=== PATIENT | female | born 1960 | race African-American/Black ===

== ENCOUNTER 2019-05-29 20:25 | Inpatient (IN) ==
[2019-05-29] MEDS ORDERED: ZOFRAN IV ONE (20:55)
[2019-05-29] MEDS ORDERED: ZOFRAN IM ONE (21:06)
[2019-05-29] MEDS ORDERED: HUMULIN R SUBQ ONE (21:09)
--- NOTE | 2019-05-29 21:28 | Diag Imaging Result Doc PS360 ---
EXAM: CHEST-1 VIEW HISTORY: chest pain TECHNIQUE: Single view COMPARISON: 03/13/2019 FINDINGS: The lungs are well expanded. The heart is not enlarged. No change in the right jugular catheter. No pneumothorax. The vessels are not distended. There are no infiltrates. No effusion identified. IMPRESSION: Negative exam. Electronically signed by aCtracho Barber 05/29/2019 9:25 PM
[2019-05-29 21:29] LABS: ALLEN TEST YES; BE -4.4 mmoll (-3.0-3.0); BLOOD TYPE ARTERIAL; HCO3-(ACT) 21.4 mmoll (20.0-26.0); METHB 1.1 % (0.0-1.5); MODALITY ROOM AIR; O2(CT) 12.4 mL/dL (15.0-23.0); O2HB 91.5 % (95.0-99.0); PCO2(98.6) 39 mmHg (35-45); PO2(98.6) 59 mmHg (60-100); SAMPLE BLOOD; SAO2 94.5 % (95.0-100.0); THB 9.6 g/dL (11.5-17.4); pH(98.6) 7.34 (7.35-7.45)
--- NOTE | 2019-05-29 21:32 | EKG Report ---
Test Performed on : 05/29/2019 9:00:46 PM Test Reason : chest pain Blood Pressure : / mmHG Vent. Rate : 075 BPM Atrial Rate : 075 BPM P-R Int : 148 ms QRS Dur : 074 ms QT Int : 430 ms P-R-T Axes : 044 -05 039 degrees QTc Int : 480 ms Normal sinus rhythm. Normal ECG When compared with ECG of 13-MAR-2019 18:18, Nonspecific T wave abnormality no longer evident in Lateral leads Unconfirmed Result
[2019-05-29 21:42] LABS: BASO# 0.02 X1000 (0.0-0.2); BASO% 0.2 % (0.0-0.8); EOS# 0.01 X1000 (0.0-0.7); EOS% 0.1 % (0.0-10.0); HEMATOCRIT 30.4 % (37.0-47.0); HEMOGLOBIN 9.8 g/dL (12.0-16.0); LYMPH# 1.89 X1000 (1.2-3.4); LYMPH% 16.5 % (20.5-51.1); MCH 27.5 PG (27-31); MCHC 32.2 g/dL (33-37); MCV 85.4 FL (81-99); MONO# 0.63 X1000 (0.11-0.59); MONO% 5.5 % (1.7-9.3); MPV 10.2 FL (7.4-10.4); NEUT# 8.87 X1000 (1.4-6.5); NEUT% 77.7 % (42.2-75.2); PLT 263 X1000 (130-400); RBC 3.56 XMIL (4.2-5.4); RDW 13.9 % (11.5-14.5); WBC 11.42 X1000 (4.8-10.8)
[2019-05-29 22:22] LABS: AGAP 24; ALB/GLOB RATIO 1.2; ALBUMIN 3.7 g/dL (3.5-5.0); ALKALINE PHOSPHATASE 102 U/L (32-104); BUN 89 mg/dL (8-22); CALCIUM 8.8 mg/dL (8.8-10.2); CHLORIDE 79 mmol/L (98-107); COSMO 322; CREATININE 8.1 mg/dL (0.5-0.9); ESTIMATED GFR 6; GLUCOSE 974 mg/dL (70-104); GOT 11 U/L (10-30); GPT < 5 U/L (10-36); POTASSIUM 5.9 mmol/L (3.5-5.1); SODIUM 123 mmol/L (136-145); TCO2 20 mmol/L (25-35); TOTAL BILIRUBIN 0.27 mg/dL (0.20-1.00); TOTAL PROTEIN 6.8 g/dL (6.3-8.3)
[2019-05-29] MEDS ORDERED: NS 1,000 ML IV ONE (22:28)
[2019-05-29] MEDS ORDERED: NS 500 ML IV ONE (22:30)
[2019-05-29] MEDS ORDERED: DILAUDID IV ONE (22:42)
[2019-05-29 23:00] LABS: MAGNESIUM 2.2 mg/dL (1.5-2.7); PHOSPHORUS 4.6 mg/dL (2.7-4.5)
[2019-05-30] MEDS ORDERED: DILAUDID IM ONE (00:14)
[2019-05-30] MEDS ORDERED: DILAUDID ONE (00:20)
--- NOTE | 2019-05-30 02:14 | PROVIDER DOCUMENTATION ---
This chart was entered by Geni Patterson Scribe, acting as scribe for Titi Pitt MD. HPI-Abdominal Pain/GI Problem - General Stated Complaint: abdominal pain Time Seen by Provider: 05/29/19 20:30 Source: patient, EMS Allergies/Adverse Reactions: Patient Allergies Allergy/AdvReac Type Severity Reaction Status Date / Time Latex, Natural Rubber Allergy ITCHING Verified 05/25/19 08:09 Home Medications: Home Medication List Medication Instructions Recorded Confirmed Last Taken Type Aspirin 81 mg PO DAILY 07/22/16 05/25/19 05/25/19 06:30 History Gabapentin 600 mg PO BID 07/22/16 05/25/19 05/25/19 06:30 History Insulin NPL/Insulin Lispro 12 units SQ BID CC 07/22/16 05/25/19 05/24/19 20:00 History [Humalog Mix 75-25 Pen] Losartan Potassium [Cozaar] 50 mg PO DAILY 07/22/16 05/25/19 05/24/19 History Nebivolol [Bystolic] 5 mg PO DAILY 07/22/16 05/25/19 05/25/19 06:30 History PRAVAstatin [Pravachol] 40 mg PO QHS 07/22/16 05/25/19 05/24/19 History Pantoprazole [Protonix] 40 mg PO DAILY@0700 07/22/16 05/25/19 07/21/16 09:00 History Sitagliptin [Januvia] 50 mg PO DAILY 07/22/16 05/25/19 05/24/19 History Torsemide 20 mg PO DAILY 07/22/16 05/25/19 05/25/19 06:30 History Insulin Glargine [Lantus] 45 unit SUBQ QHS #1 07/25/16 05/25/19 05/24/19 20:00 Rx 45 units Baclofen 5 mg PO DAILY 05/20/19 05/25/19 05/24/19 History Clindamycin [Cleocin] 300 mg PO TID 05/20/19 05/25/19 05/25/19 06:30 History Nifedipine 20 mg PO DAILY 05/20/19 05/25/19 05/25/19 06:30 History Docusate Sodium [Colace] 100 mg PO BID #30 cap 05/25/19 Unknown Rx Hydrocodone/Acetaminophen [Rebuck 1 ea PO Q6H PRN PRN #20 tab 05/25/19 Unknown Rx 7.5-325 Tablet] - History of Present Illness-ABD Nature of Presenting Problems: 59 y/o female presents to ED with generalized abdominal pain radiating into c hest and vomiting. Pt reports she is a MWF dialysis pt and has not dialyzed in 4 days. Pt states she missed dialysis because she was sick. EMS reports her blood pressure and sugar were high en route to ED. Pt is alert and grunting in pain. Abdominal Pain Onset Location: reports: generalized abdomen Pain Radiation: reports: no radiation Quality of Pain: reports: aching Severity in ED: reports: moderate Onset/Duration: reports: unsure Timing: reports: still present Activities at Onset: reports: none Exposure to sick contacts?: No Modifying Factors: worse with: palpation Associated Symptoms: reports: vomiting, other (generalized abdominal pain radiating into chest) Last BM: unsure Dark Stools Present?: reports: none noticed Rectal Bleeding: reports: none Rectal Pain: reports: none Similar Symptoms Previously?: No Recently seen or treated by another doctor?: No Review of Systems - Adult - REVIEW OF SYSTEMS - ADULT Constitutional: denies: chills, fever Eyes: reports: no symptoms reported Ears, Nose, Mouth & Throat: reports: no symptoms reported Cardiovascular: denies: chest pain, palpitations Respiratory: denies: cough, shortness of breath Gastrointestinal: reports: abdominal pain (radiating into chest), nausea, vomiting. denies: diarrhea Genitourinary: reports: no symptoms reported Musculoskeletal: reports: no symptoms reported Integumentary: reports: no symptoms reported Neurological: reports: no symptoms reported Psychiatric: reports: no symptoms reported Endocrine: reports: no symptoms reported Hematologic/Lymphatic: reports: no symptoms reported Allergic/Immunologic: reports: no symptoms reported All Other Systems: Reviewed and Negative Past History - Adult - PAST MEDICAL HISTORY-ADULT Review of Records: reports: Old Records Reviewed, Nursing Assessment Review, Medications Reviewed Major Childhood Illnesses: reports: denies history Cardiovascular: reports: HTN, hyperlipidemia Respiratory: reports: sleep apnea Gastrointestinal: reports: denies history Obstetrical/Gynecological: reports: denies history Genitourinary: reports: dialysis (MWF), ESRD, kidney disease Musculoskeletal: reports: denies history Neurological: reports: CVA Endocrine/Immune: reports: Diabetes Other Conditions: reports: blindness - PRIOR SURGERIES/PROCEDURES Surgical/Procedure History: reports: back/neck, other (fistula) - IMMUNIZATION STATUS Childhood Immunizations: See Nurse Assessment Flu Vaccine: See Nurse Assessment - FAMILY HISTORY Family History: reviewed, not pertinent - SOCIAL HISTORY Smoking: non-smoker Substance Use: none/never Alcohol Use Frequency: never Living Situation: family Physical Exam-General - PHYSICAL EXAM-ADULT Initial Vital Signs Reviewed: Yes - CONSTITUTIONAL General Appearance: alert, mild distress, obese, other (grunting in pain) - EYES Eyes: pink conjunctivae - HEAD, EARS, NOSE, MOUTH & THROAT HENMT: normocephalic/atraumatic, moist mucous membranes, normal ENT inspection - NECK Neck: non-tender, full range of motion - RESPIRATORY Respiratory: chest non-tender, lungs clear, normal breath sounds - CARDIOVASCULAR Cardiovascular: normal peripheral pulses, regular rate, rhythm - GASTROINTESTINAL (ABDOMEN) Abdominal Exam: normal bowel sounds, soft, tenderness (epigastric) - MUSCULOSKELETAL Back Exam: normal inspection, no CVA tenderness, no vertebral tenderness Extremity: normal range of motion, non-tender - SKIN Integumentary: normal color, warm/dry, other (dressed wound to medial aspect of L upper arm) - NEUROLOGIC Neurologic: grossly normal - PSYCHIATRIC Psych/Mental Status: normal mood/affect Progress - PLAN OF CARE/RESULTS Progress/Plan/Lab Results: Orders Category Date Time Status cxr [CHEST-1 VIEW] [RAD] Stat Exams 05/29/19 20:41 Ordered CBC WITH ELECTRONIC DIFF [HEME] Stat Lab 05/29/19 20:31 Uncollected CMP [COMPREHENSIVE METABOLIC PANEL] [CHEM] Stat Lab 05/29/19 20:31 Uncollected TROPONIN T Stat Lab 05/29/19 20:41 Ordered EKG [EKG] Stat Ther 05/29/19 20:41 Ordered Vital Signs - 24 hr 05/29/19 20:39 Temperature 97.7 F Pulse Rate 78 Respiratory Rate 20 Blood Pressure 220/140 O2 Sat by Pulse Oximetry 97 Orders Category Date Time Status cxr [CHEST-1 VIEW] [RAD] Stat Exams 05/29/19 20:41 Completed ABG [RESP] Routine Lab 05/29/19 21:07 Completed CBC WITH ELECTRONIC DIFF [HEME] Stat Lab 05/29/19 21:27 Completed CMP [COMPREHENSIVE METABOLIC PANEL] [CHEM] Stat Lab 05/29/19 21:27 Completed TROPONIN T Stat Lab 05/29/19 21:27 Completed Insulin Human Regular [Humulin R] Med 05/29/19 21:09 Discontinued 10 unit SUBQ NOW ONE Ondansetron [Zofran] Med 05/29/19 21:06 Discontinued 4 mg IM NOW ONE EKG [EKG] Stat Ther 05/29/19 20:41 Draft Laboratory Tests 05/29/19 05/29/19 05/29/19 21:07 21:10 21:27 WBC RBC Hgb Hct MCV MCH MCHC RDW Std Deviation Plt Count MPV Immature Gran % (Auto) Neut % (Auto) Lymph % (Auto) Thurston % (Auto) Eos % (Auto) Baso % (Auto) Immature Gran # (Auto) Neut # (Auto) Lymph # (Auto) Thurston # (Auto) Eos # (Auto) Baso # (Auto) Specimen Type ARTERIAL Sample Site R RADIAL pH 7.34 L pCO2 39 pO2 59 L HCO3 21.4 Base Excess -4.4 L Oxyhemoglobin 91.5 L ABG O2 Sat (Calculated) 12.4 L ABG O2 Saturation 94.5 L ABG Carboxyhemoglobin 2.10 ABG Methemoglobin 1.1 Mauricio Test YES A-a O2 Difference 42.0 Total Hemoglobin 9.6 L Lactate 1.40 Blood Gas Modality ROOM AIR FiO2 % 21.0 Sodium Potassium Chloride Carbon Dioxide Anion Gap BUN Creatinine Estimated GFR/1.73 m2 BUN/Creatinine Ratio Glucose POC Glucose 500 H D Calculated Osmolality Calcium Total Bilirubin AST ALT Alkaline Phosphatase Troponin T 0.066 Total Protein Albumin Globulin Albumin/Globulin Ratio 05/29/19 05/29/19 21:27 21:27 WBC 11.42 H RBC 3.56 L Hgb 9.8 L Hct 30.4 L MCV 85.4 MCH 27.5 MCHC 32.2 L RDW Std Deviation 13.9 Plt Count 263 MPV 10.2 Immature Gran % (Auto) 0.0 Neut % (Auto) 77.7 H Lymph % (Auto) 16.5 L Thurston % (Auto) 5.5 Eos % (Auto) 0.1 Baso % (Auto) 0.2 Immature Gran # (Auto) 0.00 Neut # (Auto) 8.87 H Lymph # (Auto) 1.89 Thurston # (Auto) 0.63 H Eos # (Auto) 0.01 Baso # (Auto) 0.02 Specimen Type Sample Site pH pCO2 pO2 HCO3 Base Excess Oxyhemoglobin ABG O2 Sat (Calculated) ABG O2 Saturation ABG Carboxyhemoglobin ABG Methemoglobin Mauricio Test A-a O2 Difference Total Hemoglobin Lactate Blood Gas Modality FiO2 % Sodium 123 L Potassium 5.9 H Chloride 79 L Carbon Dioxide 20 L Anion Gap 24 BUN 89 H Creatinine 8.1 H Estimated GFR/1.73 m2 6 BUN/Creatinine Ratio 11 Glucose 974 H* POC Glucose Calculated Osmolality 322 Calcium 8.8 Total Bilirubin 0.27 AST 11 ALT < 5 L Alkaline Phosphatase 102 Troponin T Total Protein 6.8 Albumin 3.7 Globulin 3.1 Albumin/Globulin Ratio 1.2 Result Diagrams: 05/29/19 21:27 05/29/19 21:27 - EKG 1 Time of EKG reading by physician:: 21:00 EKG Read and Signed by:: Titi Pitt EKG Interpretation (*Must complete 3 of following elements*): Normal Rate: 75 Rhythm: NSR [place]: normal QRS: normal MD Interval: normal ST Wave: normal - XRAY 1 XRAY Study: Chest Impression: See EMR Report ([facility] - [address] [place] [address] [place], [place] [id number] [facility] - [address] [place] [address] Department of Imaging Patient: KAREN ATKINSON Date: 05/29/19#: [id number] : 8ADM Status: REG [facility]#: [id number] Age/Sex: 59/FRoom/Bed: Loc: ED Ordering Physician: Titi Pitt MD Family Physician: Manny Gandhi MD Reason for Pr ocedure: chest pain ____ Signed EXAM: CHEST-1 VIEW HISTORY: chest pain TECHNIQUE: Single view COMPARISON: 03/13/2019 FINDINGS: The lungs are well expanded. The heart is not enlarged. No change in the right jugular catheter. No pneumothorax. The vessels are not distended. There are no infiltrates. No effusion identified. IMPRESSION: Negative exam. Electronically signed by Catracho Barber 05/29/2019 9:25 PM 05/29/192124 Interpreting Physician: Catracho Barber MD Dictated Date/Time: 05/29/192124 cc: Titi Pitt MD; Manny Gandhi MD) - CONSULTS/PCP/HOSPITALIST Notification #1 *Consult/PCP/Hospitalist*: Dr. Benton Time Discussed: 22:28 Reason/Comments: Hyperglycemia; ESRD; missed dialysis Consult Disposition: Admit #2 Consult: ROVING [facility] for Dr. Quinonez Time Discussed: 22:34 Reason/Comments: Hyperglycemia; ESRD; missed dialysis Consult Disposition: Admit Departure - Departure Date of Disposition Decision: 05/29/19 Time of Disposition Decision: 22:29 DIAGNOSIS: Hyperglycemia, ESRD (end stage renal disease) Abdominal pain Qualifiers: Abdominal location: unspecified location Qualified Code(s): R10.9 - Unspecified abdominal pain Uncontrolled diabetes mellitus Qualifiers: Diabetes mellitus type: other specified (including MOHSEN) Glycemic state: with hyperglycemia Qualified Code(s): E13.65 - Other specified diabetes mellitus with hyperglycemia Disposition: ADMITTED INPATIENT 09 Certified Medical Emergency: Emergent Condition: Stable Referrals and Follow-Ups: Manny Gandhi MD [Primary Care Provider] - - Critical Care Note This patient required my direct & personal management of CC.: Yes Total Time (mins): 35 Critical Care Statement: This patient required my direct personal management to treat or rule out processes, the absence of which, could potentiallly result in sudden, clinically significant life or limb threatening deterioration. Attestation - Physician/ AMBREEN Attestation Patient care was provided by Advanced Practice Provider:: No The physician spent face to face time with patient:: Yes Advanced Practice Provider documentation review:: Supervising physician onsite and consulted in the evaluation and care of this patient. The physician did have a face to face encounter with the patient. This chart was documented by the indicated scribe, (Yesenia,Geni F, Scribe) and accurately reflects the services I performed and decisions made by me, Titi Pitt MD, as attested by the provider's signature.
--- NOTE | 2019-05-30 03:05 | HISTORY AND PHYSICAL ---
PRIMARY CARE PHYSICIAN: Dr. Manny Gandhi. CHIEF COMPLAINT: Nausea and vomiting x3 days, missed dialysis. HISTORY OF PRESENTING ILLNESS: A 59-year-old female with a history of end-stage renal disease, on renal dialysis Friday, Friday, Friday, diabetes mellitus type 2, hypertension, hyperlipidemia, who is legally blind, who had presented to emergency department with 3 days history of having intractable nausea, vomiting. The patient states that she missed her dialysis because she was not feeling well. The patient was evaluated in the emergency department. She continued to complain of worsening nausea, vomiting and also shortness of breath and having some chest pressure like symptoms. She was seen in the ED and due to her presenting symptoms she will need admission for further management. During her initial evaluation it was noted that her blood glucose was around the 900 ranges. She was given IV insulin. At time of my examination, she complained of having nausea and hurting all over, but she denied any fever, chills, hemoptysis, melena, or weight changes, but complained of shortness of breath, nausea, vomiting. PAST MEDICAL HISTORY: Includes end-stage renal disease, on renal dialysis Friday, Friday, Friday, diabetes mellitus type 2, hypertension, hyperlipidemia. She is legally blind. PAST SURGICAL HISTORY: Left upper extremity AV fistula. ALLERGIES: Latex and natural rubber. CURRENT MEDICATIONS: Aspirin 81 mg p.o. daily, baclofen 5 mg p.o. daily, clindamycin 300 mg p.o. b.i.d., gabapentin 600 mg p.o. b.i.d., Bevier 7.5 mg 1 p.o. q.6 hours, Lantus 45 units subcutaneous at bedtime, Humalog mix 75/25 of 10 ]units subcutaneous b.i.d., losartan 50 mg p.o. daily, Bystolic 5 mg p.o. daily, nifedipine 20 mg p.o. daily, pantoprazole 40 mg p.o. daily, pravastatin 40 mg p.o. at bedtime, Januvia 50 mg p.o. daily, torsemide 20 mg p.o. daily. SOCIAL HISTORY: No history of smoking, alcohol or illicit drug use. FAMILY HISTORY: No history of coronary artery disease. REVIEW OF SYSTEMS: Fourteen point review of system as listed in HPI. Other systems negative. PHYSICAL EXAMINATION: GENERAL: Cooperative, friendly female. She is resting more comfortably now. VITAL SIGNS: Temperature 97.7 degrees, pulse 78, respirations 20, blood pressure 220/140. HEENT: Atraumatic, normocephalic. NECK: No masses. CHEST: Bibasilar rales. CARDIOVASCULAR: Regular rate and rhythm. ABDOMEN: Soft, obese, positive bowel sounds. EXTREMITIES: Trace edema. NEUROLOGIC: She is awake, alert, oriented x3. GENITOURINARY: No bladder distention. SKIN: Warm. LABORATORIES AND STUDIES: WBCs 11.42, hemoglobin 9.8, hematocrit 30.4, platelets 263,000. Blood gas shows pH of 7.34. Sodium 123, potassium 5.9, chloride 79, CO2 is 20, BUN is 89, creatinine is 8.1, glucose is 974, after insulin 500. Chest x-ray is a negative exam. ASSESSMENT: A 59-year-old female with a history of end-stage renal disease, diabetes mellitus type 2, hypertension, hyperlipidemia, who had presented to the emergency department with 3 days history of worsening nausea, vomiting. She apparently had missed her dialysis session because she was sick. She was seen in the ED and it was noted that she had markedly elevated blood glucose. She was given IV insulin and she will require admission for further management. 1. Diabetes mellitus type 2 with hyperglycemia. 2. End-stage renal disease, possible volume overload, missed dialysis session. 3. Nausea, vomiting. 4. Hypertension. 5. Hyperlipidemia. PLAN: 1. We will admit patient to medical floor with telemetry. 2. We will monitor blood glucose and put patient on a moderate sliding scale insulin regimen. 3. The patient was given gentle hydration in the ED already. 4. We will consult Nephrology, schedule patient for dialysis. 5. We will continue supportive treatment with antiemetics as needed. 6. We will monitor blood pressure closely. 7. We will restart other home medications. 8. We will put patient on DVT prophylaxis with SCD. 9. We will continue to follow, and reassess and make further recommendation based on patient's clinical course. cc: Marcos Benton MD MTDD
[2019-05-30] MEDS: HUMULIN R SUBQ SCH ×3 (05:54→07:52)
[2019-05-30 06:17] LABS: BASO# 0.02 X1000 (0.0-0.2); BASO% 0.2 % (0.0-0.8); EOS# 0.05 X1000 (0.0-0.7); EOS% 0.5 % (0.0-10.0); HEMOGLOBIN 9.1 g/dL (12.0-16.0); IMM GRAN# 0.02 X1000 (0.0-0.04); IMM GRAN% 0.2 % (0.0-0.5); LYMPH# 2.52 X1000 (1.2-3.4); MCH 27.1 PG (27-31); MCHC 32.5 g/dL (33-37); MCV 83.3 FL (81-99); MONO# 0.64 X1000 (0.11-0.59); MONO% 6.6 % (1.7-9.3); MPV 9.8 FL (7.4-10.4); NEUT# 6.43 X1000 (1.4-6.5); NEUT% 66.5 % (42.2-75.2); PLT 259 X1000 (130-400); RBC 3.36 XMIL (4.2-5.4); RDW 13.6 % (11.5-14.5); WBC 9.68 X1000 (4.8-10.8)
[2019-05-30 06:47] LABS: CALCIUM 8.7 mg/dL (8.8-10.2); CREATININE 8.3 mg/dL (0.5-0.9); POTASSIUM 5.7 mmol/L (3.5-5.1)
[2019-05-30] MEDS: HEPARIN SUBQ SCH ×3 (07:51→21:49)
[2019-05-30] MEDS ORDERED: NORCO-7.5 PO PRN (08:08)
[2019-05-30] MEDS ORDERED: HUMALOG MIX 75/25 SUBQ SCH (08:15)
[2019-05-30] MEDS ORDERED: HUMULIN R SUBQ SCH (08:45)
[2019-05-30] MEDS: VENTOLIN HFA INH SCH (09:12)
[2019-05-30 09:30] LABS: ALLEN TEST NO; BE 3.4 mmoll (-3.0-3.0); BLOOD TYPE ARTERIAL; HCO3-(ACT) 27.5 mmoll (20.0-26.0); METHB 1.4 % (0.0-1.5); MODALITY ROOM AIR; O2(CT) 18.8 mL/dL (15.0-23.0); O2HB 93.8 % (95.0-99.0); PCO2(98.6) 44 mmHg (35-45); PO2(98.6) 80 mmHg (60-100); SAMPLE BLOOD; SAO2 96.9 % (95.0-100.0); THB 14.2 g/dL (11.5-17.4); pH(98.6) 7.42 (7.35-7.45)
[2019-05-30] MEDS: COZAAR PO SCH (10:08)
[2019-05-30] MEDS: LANTUS INSULIN SUBQ SCH ×2 (10:08→12:11)
[2019-05-30] MEDS: BYSTOLIC PO SCH (10:08)
[2019-05-30] MEDS: DEMADEX PO SCH (10:08)
[2019-05-30] MEDS: ASPIRIN PO SCH (10:08)
[2019-05-30] MEDS: APRESOLINE PO SCH ×3 (10:08→16:04)
--- NOTE | 2019-05-30 10:15 | PROGRESS NOTE ---
DATE: 05/30/2019 INTERVAL HISTORY: Ms. Villa was admitted for hyperglycemia, nausea, vomiting, and missed dialysis. On admission, she was found to have hyperglycemia, as well as hypertension with blood pressure of 220/140, so she was admitted for the need for dialysis and management of hyperglycemia. She did have elevated anion gap mild acidosis with pH of 7.34. However, she was not started on DKA protocol. Her urinalysis was not obtained. SUBJECTIVE: In the morning time, Ms. Villa appears sleepy, but easily arousable. I was paged by the nursing team that she had high blood glucose, and I immediately evaluated her. At the time of my evaluation, she states she has not had any nausea or vomiting since night. She denies any chest pain or shortness of breath. She denies any abdominal discomfort. She states the last time she may have taken her insulin could be 3 days ago. She states she had missed dialysis on Friday because she was not feeling well. She denies known history of coronary artery disease. OBJECTIVE: Current Vital Signs: Temperature of 98.1 degrees, pulse 78, respiratory rate 20, blood pressure 178/57, she is saturating 96% on room air. General: Morbidly obese, not in acute distress. HEENT: Oral cavity is moist. On eye examination, she has white pupillary reflex on the right, and anterior chamber intra-ocular lens on the left. Lungs: Air entry bilaterally equal. No wheeze, rhonchi, or crackles. Cardiovascular: S1, S2 normal. Regular. No murmur, rub, or gallop. Abdomen: Soft. She has tenderness in the right upper quadrant region. Active bowel sounds. Extremities: No lower extremity edema. Access: She has a right-sided chest wall port for dialysis. She also has left-sided AV fistula. Neurologic: She is answering questions appropriately, though she often lapses into sleep. LABORATORY DATA: Suggestive of normal CBC with normocytic anemia. ABG suggestive of no acidosis, no lactic acidosis. Her sodium, potassium, chloride, and bicarbonate are improving. Her hyperglycemia is improving as well. MICROBIOLOGY: No positive data. IMAGING: Chest x-ray did not have any acute pathology. Electrocardiogram had normal sinus rhythm. ASSESSMENT AND PLAN: 1. Nausea, vomiting, and abdominal discomfort on presentation. Differential includes acute cholecystitis, hypertensive emergency, uncontrolled diabetes. Currently, she denies abdominal pain, though does have abdominal tenderness. I will give her pantoprazole, and start her on Zofran as needed. I will resume her home antihypertensive medications, and get ultrasound of right upper quadrant to rule out acute cholecystitis. 2. Uncontrolled diabetes with hyperglycemia. It is insulin-dependent at home. However, the compliance has been questionable. I will start her on home regimen of insulin glargine, as well as sliding scale insulin. Though she had mild acidosis and elevated anion gap on presentation, she was not started on insulin drip, and currently her bicarbonate is improving, anion gap has been decreasing, and ABG suggests no acidosis, so I will monitor her with sliding scale insulin. 3. Hypertensive emergency. Resume home hydralazine, nebivolol, losartan, and torsemide. Electrocardiogram was unremarkable. 4. Chronic kidney disease stage 5, on Friday, Friday, Friday hemodialysis. Dr. Quinonez has been consulted for dialysis. 5. Disposition. I will continue to monitor the patient inside the hospital. Plan of care discussed with her. Her questions have been answered. cc: Trae Shay MD ADDENDUM: I called her primary contact her sister to learn more about her present illness and left her a voice message. I also called her POA Ms Mcclure and it went into her voice message. I have left her a voice message. MADISON
[2019-05-30 11:46] LABS: CALCIUM 8.8 mg/dL (8.8-10.2); CREATININE 8.6 mg/dL (0.5-0.9); POTASSIUM 4.5 mmol/L (3.5-5.1)
--- NOTE | 2019-05-30 11:49 | Diag Imaging Result Doc PS360 ---
EXAM: US ABDOMEN-COMPLETE INDICATION: Evaluate for Acute cholecystitis COMPARISON: None. FINDINGS: The study is somewhat limited by body habitus and excess bowel gas. The gallbladder appears normal with no stones, wall thickening, or pericholecystic fluid. The common bile duct is normal in diameter. Sonographic Bolivar's sign was reported to be negative. The liver is grossly unremarkable. Portal venous flow is hepatopetal. The pancreas is largely obscured. The visualized portions are unremarkable. The aorta and IVC are partially obscured. Visualized portions are unremarkable. The spleen is unremarkable. The kidneys are grossly unremarkable. IMPRESSION: Essentially unremarkable abdominal ultrasound. Electronically signed by Nixon Kearney 05/30/2019 11:47 AM
[2019-05-30] MEDS ORDERED: HUMALOG SUBQ SCH (14:00)
--- NOTE | 2019-05-30 15:03 | CONSULTATION ---
DATE OF CONSULTATION: 05/30/2019 REASON FOR ADMISSION: Nausea and vomiting. REASON FOR CONSULTATION: Assist with management, ESRD. CONSULTING PHYSICIAN: Dr. Benton. HISTORY OF PRESENT ILLNESS: This is a 59-year-old female, on dialysis Friday, Friday, Friday, who currently dialyzes with a tunneled catheter and who went for a fistula revision on . She felt poorly on Friday and did not present to treatment. She came into the emergency room last night secondary to nausea, vomiting shortness of breath and chest pressure. She was noted at that time to have a blood glucose of greater than 900. She was treated with insulin. She was admitted to the hospital for further workup and treatment. We have been asked to see her and assist with her management. When I see her today, she is sitting up. She is a little bit groggy. Her blood sugars have still been greater than 500. She is going for an ultrasound of the abdomen here and just a few minutes secondary to her continued nausea and vomiting. PAST MEDICAL HISTORY: End-stage renal disease, Friday, Friday and Friday dialysis, diabetes, hypertension, hyperlipidemia, GERD, neuropathy. SURGICAL HISTORY: Left upper extremity AV fistula. ALLERGIES: Latex and rubber. HOME MEDICATIONS: Aspirin, baclofen, clindamycin, gabapentin ,[place], Lantus, Humalog, losartan, Bystolic, nifedipine, pantoprazole, pravastatin, Januvia and torsemide. FAMILY HISTORY: Noncontributory. SOCIAL HISTORY: No ETOH, tobacco, or illicit drug use. REVIEW OF SYSTEMS: Nausea and vomiting. PHYSICAL EXAMINATION: Vital Signs: Temperature 98.1 degrees, pulse 78, respiratory rate 20, blood pressure 178/57. Intake 1.5 L. This was fluid bolus in the ER. output has been none documented. General: This is a chronically ill-appearing, morbidly obese, middle-aged female, sitting up in bed. She is somewhat groggy but no acute distress. HEENT: Normocephalic, atraumatic. RAMESH. Conjunctivae are pale. Her oral mucosa is moist. Neck: Thick. Unable to determine JVD. Cardiovascular: Regular rate and rhythm. Pulmonary: She is actually clear bilaterally with no increased work of breathing and currently on room air. Abdomen: Morbidly obese, soft, diffusely tender. : Not inspected. Minimal void. Extremities: Trace edema. Moving all extremities. Her AV fistula left upper extremity revision site with a dressing to it, no bleeding.. Integumentary: Skin is warm and dry. Tunneled catheter right upper chest wall. Insertion site clean, dry, and intact. Neurologic: Nonfocal. LAB DATA: WBC of 9.6, hemoglobin 9.1. Sodium 130, potassium 5.7, CO2 23, creatinine 8.3. Her chest x-ray was negative for any acute process. ASSESSMENT AND PLAN: 1. End stage renal disease. She normally dialyzes Friday, Friday, Friday. We will plan to dialyze her on Friday. She does not have any absolute indications to warrant emergent dialysis today. 2. Electrolytes, acid-base balance, anemia. We will check her labs and determine her dialysis bath in the morning. 3. Fluid volume. She is not overloaded. Her chest x-rays are clear, and she is on room air. 4. Nausea and vomiting, being worked up by primary. 5. Hyperglycemia, followed by primary. Dictated by NICOLE Juarez for Russell Quinonez MD cc: Russell Quinonez MD
[2019-05-30] MEDS: HUMALOG SUBQ SCH ×2 (18:29→22:40)
[2019-05-30] MEDS: PRAVACHOL PO SCH (21:49)
[2019-05-31] MEDS: HUMALOG SUBQ SCH ×6 (02:38→23:17)
[2019-05-31 05:23] LABS: BASO# 0.02 X1000 (0.0-0.2); BASO% 0.2 % (0.0-0.8); EOS# 0.09 X1000 (0.0-0.7); EOS% 0.9 % (0.0-10.0); IMM GRAN# 0.02 X1000 (0.0-0.04); IMM GRAN% 0.2 % (0.0-0.5); LYMPH# 3.06 X1000 (1.2-3.4); LYMPH% 29.5 % (20.5-51.1); MCH 27.3 PG (27-31); MCHC 32.1 g/dL (33-37); MCV 84.8 FL (81-99); MONO% 6.7 % (1.7-9.3); MPV 9.5 FL (7.4-10.4); NEUT% 62.5 % (42.2-75.2); PLT 273 X1000 (130-400); WBC 10.39 X1000 (4.8-10.8)
[2019-05-31 05:54] LABS: ALBUMIN 2.8 g/dL (3.5-5.0); CALCIUM 8.3 mg/dL (8.8-10.2); CREATININE 9.9 mg/dL (0.5-0.9); POTASSIUM 4.7 mmol/L (3.5-5.1)
[2019-05-31] MEDS: PROTONIX PO SCH (06:22)
[2019-05-31 06:52] LABS: URINE SOURCE CLEAN CATCH
[2019-05-31 07:00] LABS: BILIRUBIN URINE NEGATIVE (NEGATIVE); BLOOD URINE NEGATIVE (NEGATIVE); COLOR YELLOW; GLUCOSE URINE >1000 mg/dL (NEGATIVE); KETONE URINE TRACE mg/dL (NEGATIVE); LEUKOCYTES URINE NEGATIVE (NEGATIVE); NITRITE URINE NEGATIVE (NEGATIVE); PH URINE 5.5; PROTEIN URINE 100 mg/dL (NEGATIVE); SP GRAVITY URINE 1.015; TURBIDITY URINE CLEAR (CLEAR); UROBILINOGEN URINE NORMAL (NORMAL)
[2019-05-31 07:08] LABS: UR EPITHELIAL CELLS <10 /HPF (<10); URINE BACTERIA NEGATIVE /HPF; URINE RBC <10 /HPF (<10); URINE WBC <10 /HPF (<10)
[2019-05-31 07:16] LABS: URINE YEAST NONE SEEN
[2019-05-31] MEDS ORDERED: TIGHT: 0.2 ML/HR FOR DIALYSIS MISC PRN (08:00)
[2019-05-31] MEDS ORDERED: NS 2,000 ML MISC PRN (08:00)
[2019-05-31] MEDS ORDERED: HEPARIN IV PRN (08:00)
[2019-05-31] MEDS: VENTOLIN HFA INH SCH (08:48)
[2019-05-31] MEDS: COZAAR PO SCH (09:26)
[2019-05-31] MEDS: APRESOLINE PO SCH ×3 (09:26→20:13)
[2019-05-31] MEDS: DEMADEX PO SCH (09:27)
[2019-05-31] MEDS: ASPIRIN PO SCH (09:27)
[2019-05-31] MEDS: HEPARIN SUBQ SCH ×2 (09:27→22:45)
[2019-05-31] MEDS: LANTUS INSULIN SUBQ SCH (09:27)
[2019-05-31] MEDS: BYSTOLIC PO SCH (09:27)
[2019-05-31 17:46] LABS: ALLEN TEST YES; BE -3.7 mmoll (-3.0-3.0); BLOOD TYPE ARTERIAL; METHB 1.3 % (0.0-1.5); O2(CT) 13.6 mL/dL (15.0-23.0); O2HB 95.7 % (95.0-99.0); PCO2(98.6) 32 mmHg (35-45); PO2(98.6) 98 mmHg (60-100); SAMPLE BLOOD; SAO2 98.9 % (95.0-100.0); pH(98.6) 7.41 (7.35-7.45)
[2019-05-31 17:47] LABS: MODALITY ROOM AIR
--- NOTE | 2019-05-31 17:58 | PROGRESS NOTE ---
DATE: 05/31/2019 INTERVAL HISTORY: No acute events overnight. Her blood sugars were largely within acceptable range. She did not have elevated anion gap. She received hemodialysis today morning time. SUBJECTIVE: Currently, the patient is sleepy. She is easily arousable, and she states she wanted to go to the bathroom. The patient's sister and niece are at bedside. The niece is power of corporate attorney. Currently, the patient denies any chest pain or shortness of breath. She is complaining of abdominal pain. PHYSICAL EXAMINATION: Vital Signs: Temperature of 98 degrees, pulse 71, respiratory rate 18, blood pressure 140/49, saturating 100% on room air. General: On physical examination, she is not in any acute distress. She is asleep. Lungs: Air entry bilaterally equal. No wheeze, rhonchi, or crackles. Cardiovascular: S1, S2 normal. No murmur or gallop. Abdomen: Soft. There is tenderness that is marked in right upper quadrant. She has hypoactive bowel sounds, and her abdomen otherwise appears soft. Extremities: She has mild lower extremity edema. She has a right-sided chest dialysis catheter. She has a left arm vascular surgery for AV fistula creation, which was performed a week ago. LABS: Suggestive of no leukocytosis, normocytic anemia, normal platelet count. Her hyponatremia and hypochloremia have improved. She continues to have elevated BUN and creatinine. However, she got dialysis. Her blood glucose are within acceptable range. She continues to have mild elevation of anion gap, though yesterday her pH was normal, and yesterday the ABG did not have any lactic acidosis. No microbiological data. IMAGING: Abdomen ultrasound was essentially unremarkable. ASSESSMENT AND PLAN: 1. Intractable nausea, vomiting, abdominal discomfort on presentation. Ultrasound did not detect any acute cholecystitis. On presentation, she had hypertensive emergency with blood pressure of 220/140 due to medication noncompliance. This could have caused her nausea and vomiting. She also had mild diabetic ketoacidosis and uncontrolled diabetes on presentation. This could also be one of the reasons why she had nausea and vomiting. She has not had any nausea and vomiting anymore. However, she continues to have some abdominal tenderness and poor oral intake. I will get CT scan of her abdomen and pelvis to rule out constipation or small bowel obstruction since family reports she has not had any bowel movements since many days. 2. Uncontrolled diabetes with hyperglycemia. Her hemoglobin A1c is 13 on presentation. She did not have acidosis. She continues to have elevated anion gap though. I will get a stat lactate. I will also get an ABG. I will continue her on long-acting and sliding scale insulin. Her uremia and kidney dysfunction could also be contributing factors towards her elevated anion gap. I will continue to monitor her. 3. Hypertensive emergency, now well controlled on home hydralazine, nebivolol, losartan, and torsemide. A CT was unremarkable. 4. Chronic kidney disease stage 5, on Friday, Friday, and Friday hemodialysis. She apparently had missed Friday's hemodialysis, which could have caused hypertensive emergency and nausea and vomiting. She received routine dialysis today. 5. Disposition. The patient's sister and niece want the patient to go to a usp facility. Routinely, the patient lives with her other sister. However, the sister who is at bedside is concerned that they all may not be able to take care of her properly considering her increasing needs. I will place physical therapy and social work for rehab and eventually snf consult. However, patient is currently a little drowsy and does not engage in encounter meaningfully to attest to this plan. cc: Trae Shay MD
--- NOTE | 2019-05-31 18:54 | Diag Imaging Result Doc PS360 ---
EXAM: CT ABDOMEN/PELVIS W/O CONTRAST - 05/31/2019 HISTORY: RUQ abdominal pain. Eval for constipation/SBO TECHNIQUE: CT abdomen/pelvis without contrast. No contrast administered per request of the referring provider. COMPARISON: None. FINDINGS: There is some limitation of detail due to the lack of administered contrast, as well as artifacts from the patient's body habitus and arms. There is a small right pleural effusion. There are no substantial abnormalities of the liver, spleen, or adrenal glands identified. There is no discrete pancreatic mass or inflammation identified. There are no discrete calcified gallstones or pericholecystic inflammation identified. There is no renal stone or hydronephrosis identified. There are nonspecific small retroperitoneal lymph nodes. There are no substantially enlarged lymph nodes identified. There are atherosclerotic calcifications noted. There are lumbar spine degenerative changes noted. There are associated multilevel Schmorl's nodes. There is no discrete discitis. There is an umbilical hernia which primarily contains fat. There is a small bowel loop at the orifice of the hernia. There are no complicating factors identified. There is no evidence of bowel obstruction. The appendix appears upper normal in size and shows no obvious inflammation. There is mild infiltration of fat at the right upper quadrant near the proximal duodenum and hepatic flexure of colon. There is possibly mild wall thickening at the proximal duodenum and along the right colon, but this could be exaggerated by limited distention of the lumen. There is no extraluminal gas collection or abscess identified. There is no free air or free fluid identified. The urinary bladder stoddard appear mildly thickened diffusely. The uterus is mildly prominent and is noted to deviate towards the left. There is no other abnormal pelvic mass or fluid collection identified. IMPRESSION: Apparent mild inflammatory changes at right upper quadrant. These may relate to duodenitis and/or mild colitis. No extraluminal gas or abscess. No discrete calcified gallstones or pericholecystic inflammation. No discrete pancreatic inflammation. Umbilical hernia, with small bowel loop at the orifice of the hernia. No complicating features. No bowel obstruction. Unremarkable appendix. This exam was performed using automated exposure control, adjustment of mA or kV according to patient size, and/or use of iterative reconstruction technique. Electronically signed by Mati Hooker 05/31/2019 6:51 PM
[2019-05-31] MEDS: PRAVACHOL PO SCH (22:45)
[2019-05-31] MEDS: ZOFRAN IV PRN (22:48)
[2019-06-01] MEDS: HUMALOG SUBQ SCH ×4 (02:04→14:50)
[2019-06-01] MEDS: PROTONIX PO SCH (06:26)
[2019-06-01 06:29] LABS: CALCIUM 8.4 mg/dL (8.8-10.2); CREATININE 6.7 mg/dL (0.5-0.9); POTASSIUM 5.4 mmol/L (3.5-5.1)
[2019-06-01] MEDS: APRESOLINE PO SCH ×3 (09:13→17:44)
[2019-06-01] MEDS: BYSTOLIC PO SCH (09:13)
[2019-06-01] MEDS: DEMADEX PO SCH (09:13)
[2019-06-01] MEDS: COZAAR PO SCH (09:13)
[2019-06-01] MEDS: ASPIRIN PO SCH (09:13)
[2019-06-01] MEDS: HEPARIN SUBQ SCH ×2 (09:15→20:54)
[2019-06-01] MEDS: LANTUS INSULIN SUBQ SCH (09:15)
[2019-06-01] MEDS: VENTOLIN HFA INH SCH (09:45)
--- NOTE | 2019-06-01 11:06 | NEPHROLOGY CONSULTATION ---
DATE: 05/31/2019 REASON FOR CONSULTATION: End-stage renal disease/dialysis. HISTORY OF PRESENT ILLNESS: Ms Villa is a 59-year-old -[place] woman who was admitted on the . She had revision of her fistula the previous week and came to the emergency room because of shortness of breath, nausea, vomiting. PHYSICAL EXAMINATION: Vital Signs: Blood pressure 135/38, heart rate 71, afebrile. General: No acute distress. Skin: Warm and dry. Neck: Neck veins are not distended. Heart: Regular. No gallops. Lungs: Equal. No crackles. She is currently on dialysis. Abdomen: Soft, nontender. Bowel sounds present. Extremities: No edema, clubbing, or cyanosis. IMPRESSION: Chronic kidney disease 5D. Continue routine hemodialysis treatment. PLAN: 2K bath. Outpatient dry weight. Electrolytes/acid base are in target. Hemoglobin is below target, but stable. Observe. cc: Russell Quinonez MD
[2019-06-01] MEDS ORDERED: MAALOX PLUS LIQUID PO ONE (11:32)
[2019-06-01] MEDS: FLAGYL 500 MG/NS 500 MG/100 ML IVPB IV SCH ×2 (17:44→20:13)
[2019-06-01] MEDS: BENTYL PO SCH ×2 (17:45→20:54)
--- NOTE | 2019-06-01 18:10 | PROGRESS NOTE ---
DATE: 06/01/2019 SUBJECTIVE: The patient complains of abdominal pain. She has not eaten very much in the last day or so. She did have a bowel movement early this morning and yesterday. OBJECTIVE: Vital Signs: Temperature 98.1 degrees, blood pressure 162/46, heart rate 70, respirations 16, O2 saturation 100% on room air. General: This is a overweight female sitting at the edge of the bed, in no acute distress. Heart: S1, S2 normal. Regular rate and rhythm. Lungs: Equal air entry bilaterally. No wheezing. No rales. Abdomen: Positive bowel sounds. Soft, nontender, nondistended. Extremities: No edema. No cyanosis. Neurologic: The patient is alert and oriented x4. LABS: Sodium 137, potassium 5.4, chloride 101, CO2 17, BUN 54, creatinine 6.7, glucose 143. ASSESSMENT AND PLAN: 1. Colitis. Will start the patient on Flagyl. We will also switch the patient to a full liquid diet until the abdominal pain improves. 2. Chronic kidney disease stage 5. Management as per the floor winder. 3. Uncontrolled insulin-dependent diabetes mellitus. Continue on Lantus and sliding scale insulin. 4. Hypertension. Continue on the current antihypertensive regimen. 5. Obesity. Aware. 6. Gastroesophageal reflux disease. Continue on Protonix. 7. Deep vein thrombosis prophylaxis. Continue on heparin. 8. Disposition. Continue with physical therapy. cc: Nano Schafer MD MTDD
[2019-06-01] MEDS: HUMULIN R SUBQ SCH ×2 (19:00→23:03)
[2019-06-01] MEDS: FLAGYL PO SCH (20:54)
[2019-06-01] MEDS: PRAVACHOL PO SCH (20:54)
[2019-06-02] MEDS: HUMULIN R SUBQ SCH ×5 (02:56→22:35)
[2019-06-02 06:02] LABS: HEMATOCRIT 30.3 % (37.0-47.0); HEMOGLOBIN 9.7 g/dL (12.0-16.0); MCH 27.8 PG (27-31); MCV 86.8 FL (81-99); MPV 9.6 FL (7.4-10.4); RBC 3.49 XMIL (4.2-5.4); RDW 14.3 % (11.5-14.5); WBC 8.07 X1000 (4.8-10.8)
[2019-06-02] MEDS: FLAGYL PO SCH ×3 (06:11→22:34)
[2019-06-02] MEDS: PROTONIX PO SCH (06:11)
[2019-06-02 06:32] LABS: ALBUMIN 3.1 g/dL (3.5-5.0); CALCIUM 8.6 mg/dL (8.8-10.2); CREATININE 7.7 mg/dL (0.5-0.9); POTASSIUM 4.6 mmol/L (3.5-5.1)
--- NOTE | 2019-06-02 07:43 | Diag Imaging Result Doc PS360 ---
ABDOMEN FLAT/UPRIGHT - 06/02/2019 INDICATION: abdominal pain COMPARISON: CT from 05/31/2019 FINDINGS: There is a nonobstructive bowel gas pattern. No free air or abdominal calcifications. IMPRESSION: No acute disease. Electronically signed by Luis Rice 06/02/2019 7:40 AM
[2019-06-02] MEDS: VENTOLIN HFA INH SCH (08:31)
--- NOTE | 2019-06-02 08:49 | Diag Imaging Result Doc PS360 ---
CHEST-1 VIEW - 06/02/2019 INDICATION: pulmonary edema COMPARISON: 05/29/2019 FINDINGS: Stable right-sided dialysis catheter in good position. The lungs are clear. Heart size is normal. No pneumothorax or pleural effusion. IMPRESSION: Negative exam. Electronically signed by Luis Rice 06/02/2019 8:46 AM
[2019-06-02] MEDS: HEPARIN SUBQ SCH ×2 (12:31→22:34)
[2019-06-02] MEDS: APRESOLINE PO SCH ×4 (12:31→19:06)
[2019-06-02] MEDS: ASPIRIN PO SCH (12:32)
[2019-06-02] MEDS: DEMADEX PO SCH (12:32)
[2019-06-02] MEDS: COZAAR PO SCH (12:32)
[2019-06-02] MEDS: BENTYL PO SCH ×4 (12:38→22:34)
[2019-06-02] MEDS: BYSTOLIC PO SCH (12:39)
[2019-06-02] MEDS: LANTUS INSULIN SUBQ SCH (12:39)
--- NOTE | 2019-06-02 17:35 | PROGRESS NOTE ---
DATE: 06/02/2019 SUBJECTIVE: The patient is resting comfortably in bed. She complains of abdominal pain, nausea. The patient lost her IV access yesterday. OBJECTIVE: Vital Signs: Temperature 98.2 degrees, blood pressure 141/44, heart rate 65, respirations 16, O2 saturations 100% on room air. General: This is a chronically ill-appearing elderly female lying in bed in no acute distress. Heart: S1, S2. Normal. Lungs: Equal air entry bilaterally. No wheezing. No rales. Abdomen: Positive bowel sounds. Soft, obese, nontender, nondistended. Extremities: Trace pedal edema. Neurologic: The patient is alert and oriented x3. LABORATORY DATA: Hemoglobin 9.7, hematocrit 30, platelets 277. Sodium 134, potassium 4.6, chloride 95, CO2 18, BUN 65, creatinine 7.7, glucose 235. Chest x-ray shows clear lungs. ASSESSMENT AND PLAN: 1. Colitis. Continue on a full liquid diet and Flagyl. We will consult GI for further recommendations in the morning. 2. Chronic kidney disease stage 5. Management as per the excellence consultant. 3. Poorly controlled insulin-dependent diabetes mellitus. The patient's blood sugars range anywhere from 200 to 300. We will continue on Lantus and sliding scale insulin. 4. Hypertension. Continue on the current antihypertensive regimen. 5. Morbid obesity. Aware. 6. Gastroesophageal reflux disease. Continue on Protonix. 7. Deep vein thrombosis prophylaxis. Continue with heparin. cc: Nano Schafer MD MTDD
[2019-06-02] MEDS: PRAVACHOL PO SCH (22:34)
[2019-06-03] MEDS: HUMULIN R SUBQ SCH ×7 (03:05→22:08)
[2019-06-03 05:26] LABS: HEMATOCRIT 28.2 % (37.0-47.0); HEMOGLOBIN 9.4 g/dL (12.0-16.0); MCH 28.2 PG (27-31); MCHC 33.3 g/dL (33-37); MCV 84.7 FL (81-99); MPV 9.4 FL (7.4-10.4); RBC 3.33 XMIL (4.2-5.4); RDW 14.1 % (11.5-14.5); WBC 7.65 X1000 (4.8-10.8)
[2019-06-03 05:33] LABS: CALCIUM 8.6 mg/dL (8.8-10.2); CREATININE 8.4 mg/dL (0.5-0.9); PHOSPHORUS 4.4 mg/dL (2.7-4.5); POTASSIUM 4.3 mmol/L (3.5-5.1)
[2019-06-03] MEDS: FLAGYL PO SCH ×3 (06:32→22:28)
[2019-06-03] MEDS: PROTONIX PO SCH (06:32)
[2019-06-03] MEDS ORDERED: TIGHT: 0.2 ML/HR FOR DIALYSIS MISC PRN (06:50)
[2019-06-03] MEDS ORDERED: NS 2,000 ML MISC PRN (06:50)
[2019-06-03] MEDS ORDERED: HEPARIN IV PRN (06:50)
[2019-06-03] MEDS: VENTOLIN HFA INH SCH ×2 (07:43→09:30)
[2019-06-03] MEDS: LANTUS INSULIN SUBQ SCH (09:57)
[2019-06-03] MEDS: HEPARIN SUBQ SCH (09:58)
[2019-06-03] MEDS: COZAAR PO SCH (10:00)
[2019-06-03] MEDS: BYSTOLIC PO SCH (10:00)
[2019-06-03] MEDS: DEMADEX PO SCH (10:01)
[2019-06-03] MEDS: ASPIRIN PO SCH (10:01)
[2019-06-03] MEDS: APRESOLINE PO SCH ×4 (10:01→18:09)
[2019-06-03] MEDS: BENTYL PO SCH (10:01)
--- NOTE | 2019-06-03 11:34 | GASTROENTEROLOGY CONSULTATION ---
DATE: 06/03/2019 ATTENDING PHYSICIAN: Dr. Schafer. PRIMARY CARE PHYSICIAN: Dr. Manny Gandhi. REASON FOR CONSULTATION: Abdominal pain and nausea, vomiting. HISTORY OF PRESENT ILLNESS: Ms. Villa is a 59-year-old female who was admitted on 05/29/2019 for nausea, vomiting for 3 days and she had missed dialysis. She has a history of end-stage renal disease on hemodialysis Friday, Friday, Friday. She on admission was noted to have a blood glucose of around 900. She was given IV insulin. She at that time complained of abdominal pain in the epigastrium along with nausea, vomiting. She had missed dialysis for a few days before admission because she was not feeling well. She complains of pain in the epigastric region along with nausea and intermittent vomiting. She denies any vomiting blood or passing blood in the stools. In the hospital, she had imaging in the form of CT of the abdomen and pelvis which showed umbilical hernia containing fat, lumbar spine degenerate changes, mild infiltration of fat at the right upper quadrant at the proximal duodenal and hepatic flexure of the colon. There is possibly mild wall thickening at the proximal duodenal and along the right colon but this could be exaggerated by limited distention of the lumen. There is no extraluminal gas collection or abscess identified. The impression of the CT scan was possible duodenitis or mild colitis. Gastroenterology was consulted for further intervention. PAST MEDICAL HISTORY: 1. End-stage renal disease on hemodialysis Friday, Friday, Friday. 2. Type 2 diabetes. 3. Hypertension. 4. Hyperlipidemia. 5. Morbid obesity, BMI of 42.5. 6. She is legally blind. 7. Hyperlipidemia. 8. History of peptic ulcer disease more than 40 years ago. PAST SURGICAL HISTORY: Left upper extremity AV fistula, EGD/colonoscopy done 4 to 5 years ago in [place]. She recently moved to [place] 5 months ago. ALLERGIES: Latex and natural rubber. SOCIAL HISTORY: No history of alcohol, tobacco, illicit drug abuse. FAMILY HISTORY: Noncontributory. REVIEW OF SYSTEMS: Denies any current fevers, rigors or chills, chest pain, shortness of breath, dyspnea at rest. Denies any vomiting blood. Does complain of epigastric pain and some nausea but no vomiting today. She denies any blood in the stools. Her last bowel movement was 2 days ago. She has uncontrolled diabetes and renal disease on hemodialysis. She is legally blind. She denies any neurologic complaints. She has chronic back pain. MEDICATIONS IN THE HOSPITAL: Include Pravachol, Flagyl, heparin every 12 hours, albuterol inhaler, aspirin, Bentyl 4 times daily, hydralazine 100 mg p.o. t.i.d., insulin glargine 45 units subcutaneously daily, Humulin R every 4 hours, Cozaar, Bystolic, Zofran, Protonix p.o. once daily, torsemide 20 mg daily. PHYSICAL EXAMINATION: Vital signs: Temperature of 97.4 degrees, pulse rate 66, respiratory 16, blood pressure 130/50, saturating 100% room air. Body weight of 263 pounds 3 ounces. BMI of 42.5 kg/m2. General: Morbidly obese. Sitting in bed, in no acute distress. HEENT: Pale conjunctivae. No icterus. Pupils equal, reactive to light and accommodation. Neck: Supple. Abdomen: Obese. Epigastric discomfort. No rebound or guarding. Extremities: No cyanosis, clubbing. Neuro: Alert, awake, oriented x3. LABORATORY DATA: Hemoglobin and hematocrit is 9.4 and 28.2, white count of 7.64, platelet count of 312,000. Sodium 130, potassium 4.3, chloride 94, bicarb of 16, BUN of 71, creatinine of 8.4 glucose of 238, and calcium is 8.6, phosphorus 4.4, albumin of 3.0. IMAGIN. CT scan as described in HPI. 2. Chest x-ray showed a negative exam. 3. Abdominal x-ray done on 06/02/2019 showed nonobstructive bowel gas pattern, no free air. 4. Abdominal ultrasound done on 05/28/2019 showed essentially unremarkable abdominal ultrasound. IMPRESSION: 1. Abdominal pain in the epigastrium. 2. CT scan showed evidence of possible duodenitis and colitis. 3. End-stage renal disease on hemodialysis. 4. Poorly controlled diabetes mellitus. 5. Morbid obesity. 6. Hypertension. 7. Reflux disease. 8. Umbilical hernia. RECOMMENDATIONS: We will continue patient on Protonix once daily. She will be scheduled for EGD tomorrow under anesthesia with Dr. Molina to evaluate any kind of peptic ulcer disease. The patient will continue to be treated for diabetes per the primary care team. We will start her on Bentyl 10 mg p.o. b.i.d. as needed. We will start her on bowel regimen with MiraLAX once daily. She will continue DVT prophylaxis with heparin 5000 units every 12 hours. She is on antibiotics in the form of Flagyl for possible colitis per the primary care team. We will continue that for now. We will also check stool studies to make sure there is no evidence of any infection causing her colitis and possible inflammation at the right upper quadrant. Her ultrasound of the abdomen was negative. Abdominal x-ray was negative. Further recommendations pending hospital course. The above plans discussed with the patient and nurse and all questions answered. Please call us with any further questions. cc: MD Manny Sharma MD MTDD
--- NOTE | 2019-06-03 12:11 | NEPHROLOGY PROGRESS NOTE ---
DATE: 06/03/2019 SUBJECTIVE: She is lying on her right side. No shortness of breath, nausea or vomiting. She does complain of pain. She has chronic somatic complaints that are unchanged. OBJECTIVE: Vital Signs: Blood pressure 130/50 heart rate 66, respirations 16, afebrile. General: No acute distress. Skin: Warm and dry. Neck: Neck veins are not visible. Heart: Regular, distant. Lungs: Equal. No crackles. Abdomen: Soft, nontender. Bowel sounds present. Extremities: No edema, clubbing or cyanosis. IMPRESSION AND PLAN: Chronic kidney disease 5D. She will have her routine hemodialysis treatment today. Electrolytes/acid base acceptable. Her serum bicarbonate is 16 with an anion gap of 20, and this will be addressed during her dialysis treatment. Anemia is below target, but stable. It does not meet criteria for transfusion. cc: Russell Quinonez MD
[2019-06-03] MEDS ORDERED: DILAUDID IV ONE (13:50)
[2019-06-03] MEDS: BENTYL PO PRN (15:46)
[2019-06-03] MEDS ORDERED: STERILE WATER INJ. INJ ONE (17:00)
[2019-06-03] MEDS ORDERED: CATHFLO IV ONE (17:00)
--- NOTE | 2019-06-03 17:17 | PROGRESS NOTE ---
DATE: 06/03/2019 SUBJECTIVE: The patient continues to complain of abdominal pain mainly in the epigastric region. OBJECTIVE: Vital Signs: Temperature 97.6 degrees, blood pressure 156/53, heart rate 66, respirations 16, O2 saturations 100% on room air. General: This is a morbidly obese female sitting in bed in no acute distress. Heart: S1, S2 normal. Regular rate and rhythm. Lungs: Equal air entry bilaterally. No wheezing. No rales. Abdomen: Positive bowel sounds. Soft. Positive for epigastric tenderness. Extremities: No edema. No cyanosis. Neurologic: The patient is alert and oriented x4. LABORATORY DATA: Hemoglobin 9.4, hematocrit 28, platelets 312,000. Sodium 130, potassium 4.3, chloride 94, CO2 16, BUN 71, creatinine 8.4, glucose 238, albumin 3. ASSESSMENT AND PLAN: 1. Abdominal pain. The patient is complaining of epigastric pain. Her CT showed colitis. The patient is scheduled for an EGD tomorrow. We will continue on Flagyl. 2. Chronic kidney disease stage 5. The patient is scheduled for dialysis today. 3. Poorly controlled insulin-dependent diabetes mellitus. Continue on the current insulin regimen. 4. Hypertension. Stable. Continue on the current antihypertensive regimen. 5. Morbid obesity. Aware. 6. Anemia. Stable. 7. Disposition. The patient will be discharged to inpatient rehab once she is medically stable. cc: Nano Schafer MD [facility]
[2019-06-03] MEDS: PRAVACHOL PO SCH (22:28)
[2019-06-04] MEDS: HUMULIN R SUBQ SCH ×6 (01:46→22:13)
[2019-06-04] MEDS: FLAGYL PO SCH ×2 (05:13→15:20)
[2019-06-04 05:32] LABS: HEMATOCRIT 27.2 % (37.0-47.0); MCHC 33.1 g/dL (33-37); MCV 84.7 FL (81-99); MPV 9.2 FL (7.4-10.4); RBC 3.21 XMIL (4.2-5.4); RDW 14.1 % (11.5-14.5); WBC 7.53 X1000 (4.8-10.8)
[2019-06-04] MEDS: PROTONIX PO SCH ×2 (06:00→20:37)
[2019-06-04 06:07] LABS: ALBUMIN 3.1 g/dL (3.5-5.0); CALCIUM 8.2 mg/dL (8.8-10.2); CREATININE 5.6 mg/dL (0.5-0.9); PHOSPHORUS 3.6 mg/dL (2.7-4.5); POTASSIUM 3.9 mmol/L (3.5-5.1)
[2019-06-04] MEDS ORDERED: DIPRIVAN 1% ONE (07:08)
[2019-06-04] MEDS ORDERED: XYLOCAINE-MPF 2% ONE (07:09)
[2019-06-04] MEDS ORDERED: FENTANYL ONE (07:10)
[2019-06-04] MEDS: VENTOLIN HFA INH SCH (07:54)
--- NOTE | 2019-06-04 09:45 | ENDOSCOPY OPERATIVE NOTE ---
[facility] ENDOSCOPY OPERATIVE NOTE , EGD PROCEDURE REPORT EXAM DATE: 06/04/2019 PATIENT NAME: Cammy Villa MR#: [id number] BIRTHDATE: 1960 ATTENDING: Biju Molina MD STATUS: inpatient PATIENT INTAKE COORDINATOR: INDICATIONS: The patient is a 59 yr old female here for an EGD due to nausea, vomiting, and epigastr ic abdominal pain. PROCEDURE PERFORMED: EGD w/ biopsy MEDICATIONS: Per Anesthesia ESTIMATED BLOOD LOSS: None CONSENT: The patient understands the risks and benefits of the procedure and understands that these r isks include, but are not limited to: sedation, allergic reaction, infection, perforation and/or bleeding. Alternative means of evaluation and treatment include, among others: physical exam, x-rays, and/or surgical intervention. The patient elects to proceed with this endoscopic procedure. DESCRIPTION OF PROCEDURE: During pre-op preparation period all mechanical and medical equipment was c hecked for proper function. Hand hygiene and appropriate measures for infection prevention was taken. After the risks, benefits and alternatives of the procedure were thoroughly explained, Informed consent was verified, confirmed and timeout was successfully executed by the treatment team. The patient was anesthetized with topical anesthesia and the [id number] ([id number]) endoscope was introduced through the mouth and advanced to the second portion of the duoden um. Retroflexion was performed in the stomach and revealed a hiatal hernia. The gastroscope was then slowly withdrawn and removed. The patient's toleration of the procedure was poor. ESOPHAGUS: Esophagitis was found in the distal esophagus. Esophagitis was LA Class D: Mucosal breaks involving more than 75% of esophageal circumference. A 2 cm hiatal hernia was noted. Nodularity at the GEJ at 35 cm from incisors. Biopsies obtained with cold biopsy forceps. STOMACH: Multiple shallow erosions were found in the gastric antrum. A biopsy was performed using co ld forceps. Sample sent for histology. DUODENUM: Multiple ranging between 5-9mm in size non-bleeding, shallow and clean-based ulcers were fo und in the duodenal bulb and 2nd part duodenum. ADVERSE EVENTS: Hypoxemia occurred patient became apneic and bradycardia requiring bag-mask venti lation and intubation. IMPRESSIONS: 1. Esophagitis in the distal esophagus 2. 2 cm hiatal hernia 3. Nodularity at the GEJ at 35cm from incisors. Biopsies obtained with cold biopsy forceps 4. Multiple erosions were found in the gastric antrum; biopsy was performed 5. Multiple ranging between 5-9mm in size ulcers were found in the duodenal bulb and 2nd part duoden um RECOMMENDATIONS: 1. Await biopsy results 2. Pantoprazole 40mg PO BID for 3 months 3. Advance diet as tolerated 4. Avoid aspirin and NSAIDs REPEAT EXAM: Return in 3 months for EGD. Biju Molina MD eSigned: Biju Molina MD 06/04/2019 9:45 AM CC: CPT CODES: 11504 Upper gastrointestinal endoscopy including esophagus, stomach, and either the du odenum and/or jejunum as appropriate; with biopsy, single or multiple ICD CODES: 787.02 Nausea 787.03 Vomiting,unspecified 789.06 Abdominal pain,epigastric 553.3 Diaphragmatic hernia without mention of obstruction or gangrene 530.10 Esophagitis,unspecified 537.9 Unspecified disorder of stomach and duodenum 532.90 Duodenal ulcer unspecified as acute or chronic without hemorrhage or perforation without obstr uction The ICD and CPT codes recommended by this software are interpretations from the data that the [facility] staff has captured with the software. The verification of the translation of this report to the ICD and CPT co colton and modifiers is the sole responsibility of the health care institution and practicing physician where this report was generated. [employer] will not be held responsible for the validity of the ICD and CPT codes i ncluded on this report. A assumes no liability for data contained or not contained herein. CPT is a registered tra demark of the [employer]. PATIENT NAME: Cammy Villa MR#: [id number]
[2019-06-04 11:41] LABS: HEPATITIS PROFILE ACUTE SEE COMMENTS
[2019-06-04] MEDS: LANTUS INSULIN SUBQ SCH (11:54)
[2019-06-04] MEDS: DEMADEX PO SCH (11:55)
[2019-06-04] MEDS: ASPIRIN PO SCH (11:55)
[2019-06-04] MEDS: COZAAR PO SCH (11:55)
[2019-06-04] MEDS: BYSTOLIC PO SCH (11:55)
[2019-06-04] MEDS: APRESOLINE PO SCH ×3 (12:06→17:55)
--- NOTE | 2019-06-04 12:43 | PROGRESS NOTE ---
DATE: 06/04/2019 SUBJECTIVE: The patient just returned from endoscopy. The events during the procedure were noted. The patient is groggy. OBJECTIVE: Vital Signs: Temperature 97.9 degrees, blood pressure 176/67, heart rate 71, respirations 18, and O2 saturations 100% on room air. General: This is a morbidly obese female, lying in bed in no acute distress. Heart: S1 and S2 normal. Regular rate and rhythm. Lungs: Equal air entry bilaterally. No wheezing. No rales. Abdomen: Positive bowel sounds. Soft, nontender, nondistended. Extremities: No edema, no cyanosis. Neurologic: The patient is alert and oriented x3. LABORATORIES: Hemoglobin 9, hematocrit 27, sodium 138, potassium 3.9, chloride 100, CO2 of 23, BUN 35, creatinine 5.6, glucose 122. ASSESSMENT AND PLAN: 1. Bradyarrhythmia. The patient became apneic and bradycardic following the procedure. She is now awake and alert. The patient had an echo done today which revealed a clot in the right atrium. I discussed the finding with who recommended starting a heparin drip. Will also consult Cardiology for further evaluation. 2. Esophagitis with multiple gastric erosions. Continue on Protonix. Gastroenterology is following. 3. Multiple duodenal ulcers. Continue on Protonix. 4. Clostridium difficile colitis. The patient has been started on oral vancomycin and lactobacillus. 5. Poorly controlled insulin dependent diabetes. Continue on Lantus plus sliding scale insulin. 6. Chronic kidney disease stage 5. Management as per the ore storage drier. 7. Hypertension. Continue on the current antihypertensive regimen. 8. Anemia. Stable. 9. Morbid obesity. Aware. 10. Disposition. Continue to monitor the patient this weekend in the hospital. Outdoor Advertising Leasing Agent is working on inpatient rehab placement for the patient. cc: Nano Schafer MD MTDD
[2019-06-04 13:12] LABS: ALLEN TEST YES; BE -1.3 mmoll (-3.0-3.0); BLOOD TYPE ARTERIAL; HCO3-(ACT) 23.9 mmoll (20.0-26.0); METHB 0.9 % (0.0-1.5); O2(CT) 13.3 mL/dL (15.0-23.0); O2HB 96.3 % (95.0-99.0); PCO2(98.6) 33 mmHg (35-45); PO2(98.6) 91 mmHg (60-100); SAMPLE BLOOD; SAO2 98.5 % (95.0-100.0); THB 9.7 g/dL (11.5-17.4); pH(98.6) 7.44 (7.35-7.45)
[2019-06-04 13:14] LABS: MODALITY ROOM AIR
--- NOTE | 2019-06-04 13:44 | Diag Imaging Result Doc PS360 ---
CHEST-1 VIEW - 06/04/2019 INDICATION: dyspnea COMPARISON: 06/02/2019 FINDINGS: Stable right-sided dialysis catheter in good position. The lungs are clear. Heart size is normal. No pneumothorax or pleural effusion. IMPRESSION: Negative exam. Electronically signed by Luis Rice 06/04/2019 1:42 PM
--- NOTE | 2019-06-04 13:59 | NEPHROLOGY PROGRESS NOTE ---
DATE: 06/04/2019 SUBJECTIVE: She became apneic and bradycardic after GI procedure this morning. Currently, she is in her room on monitoring with O2 saturation and heart rate. Her saturations are excellent and her heart rate is normal. She is spontaneously awake and alert. She does not remember the event. OBJECTIVE: Vital Signs: Blood pressure 176/67, heart rate 71, respiration 18, afebrile. General: No acute distress. Skin: Warm and dry. Neck: Neck veins are not visible. Heart: Regular. No gallops. Lungs: Equal. No crackles or wheezes. Abdomen: Soft, nontender. Bowel sounds are present. Obese. Extremities: No edema, clubbing or cyanosis. IMPRESSION: Chronic kidney disease 5D. Her next planned dialysis treatment will be tomorrow. Electrolytes/acid base/anemia acceptable. Hemoglobin is below target but stable. She is undergoing a GI evaluation. Endoscopy today demonstrated esophagitis and erosions in the gastric antrum as well as the duodenal bulb. cc: Russell Quinonez MD
[2019-06-04] MEDS: VANCOCIN PO SCH ×5 (14:47→23:41)
--- NOTE | 2019-06-04 15:28 | EKG Report ---
Test Performed on : 06/04/2019 3:09:12 PM Test Reason : weakness, AMS Blood Pressure : / mmHG Vent. Rate : 074 BPM Atrial Rate : 074 BPM P-R Int : 144 ms QRS Dur : 084 ms QT Int : 456 ms P-R-T Axes : 064 007 086 degrees QTc Int : 506 ms Normal sinus rhythm. Minimal voltage criteria for LVH, may be normal variant Nonspecific T wave abnormality Prolonged QT Abnormal ECG When compared with ECG of 29-MAY-2019 21:00, (Unconfirmed) Nonspecific T wave abnormality now evident in Lateral leads Confirmed by Melba SEVERINO, Rakan ([id number]) on 06/07/2019 8:28:43 AM
[2019-06-04 15:58] LABS: BASO# 0.01 X1000 (0.0-0.2); BASO% 0.1 % (0.0-0.8); EOS# 0.12 X1000 (0.0-0.7); EOS% 1.7 % (0.0-10.0); HEMATOCRIT 29.2 % (37.0-47.0); HEMOGLOBIN 9.2 g/dL (12.0-16.0); IMM GRAN# 0.02 X1000 (0.0-0.04); IMM GRAN% 0.3 % (0.0-0.5); LYMPH# 1.85 X1000 (1.2-3.4); LYMPH% 26.2 % (20.5-51.1); MCH 26.9 PG (27-31); MCHC 31.5 g/dL (33-37); MCV 85.4 FL (81-99); MONO# 0.59 X1000 (0.11-0.59); MONO% 8.3 % (1.7-9.3); MPV 9.3 FL (7.4-10.4); NEUT# 4.48 X1000 (1.4-6.5); NEUT% 63.4 % (42.2-75.2); PLT 316 X1000 (130-400); RBC 3.42 XMIL (4.2-5.4); RDW 14.5 % (11.5-14.5); WBC 7.07 X1000 (4.8-10.8)
[2019-06-04] MEDS ORDERED: HEPARIN IV PRN (16:08)
[2019-06-04] MEDS ORDERED: HEPARIN 25,000 UNIT in NS 250 ML IV SCH (16:15)
--- NOTE | 2019-06-04 16:23 | ECHO REPORT ---
ORDER DATE: 06/04/2019 INDICATIONS: Bradycardia, end-stage renal disease, dialysis. FINDINGS: 1. The right atrium appears normal in size at 3.8 cm. 2. Mild tricuspid regurgitation. 3. Normal RV size and systolic function. 4. No significant pulmonic insufficiency. 5. Normal left atrial size at 3.1 cm. 6. No mitral valve prolapse. Mild mitral regurgitation is identified. 7. Normal LV size, end-diastolic dimension of 3.8 cm. Normal to hyperdynamic LV systolic function with an estimated ejection fraction greater than 70%. Normal wall motion. 8. Aortic valve opens well. No evidence of stenosis or insufficiency. 9. Aorta appears normal in visualized segments. 10. No pericardial effusion seen. 11. There is an echodensity in the right atrium near the roof of the right atrium. This appears to be consistent with possible thrombus. This could be adherent to the dialysis catheter. The primary team was notified at 1605 hours. cc: MD Nano Bach MD
[2019-06-04 16:34] LABS: ALB/GLOB RATIO 1.2; ALBUMIN 3.4 g/dL (3.5-5.0); CALCIUM 7.9 mg/dL (8.8-10.2); CREATININE 5.9 mg/dL (0.5-0.9); POTASSIUM 4.1 mmol/L (3.5-5.1); TOTAL BILIRUBIN 0.19 mg/dL (0.20-1.00); TOTAL PROTEIN 6.2 g/dL (6.3-8.3)
[2019-06-04 18:41] LABS: INR 1.06
[2019-06-04 18:42] LABS: PTT 27.8 Seconds (22.3-41.8)
[2019-06-04] MEDS: CULTURELLE PO SCH (20:37)
[2019-06-04] MEDS: PRAVACHOL PO SCH (20:37)
[2019-06-04] MEDS: ZOFRAN IV PRN (20:40)
[2019-06-05] MEDS: APRESOLINE PO SCH ×3 (01:59→18:44)
[2019-06-05] MEDS: HUMULIN R SUBQ SCH ×7 (02:03→21:25)
[2019-06-05] MEDS: VANCOCIN PO SCH ×4 (05:36→20:59)
--- NOTE | 2019-06-05 05:47 | EKG Report ---
Test Performed on : 06/05/2019 05:26:35 AM Test Reason : bradycardia Blood Pressure : / mmHG Vent. Rate : 073 BPM Atrial Rate : 073 BPM P-R Int : 150 ms QRS Dur : 082 ms QT Int : 452 ms P-R-T Axes : 067 006 089 degrees QTc Int : 497 ms Normal sinus rhythm. T wave abnormality, consider lateral ischemia Abnormal ECG When compared with ECG of 04-JUN-2019 15:09, (Unconfirmed) No significant change was found Confirmed by Melba SEVERINO, Rakan ([id number]) on 06/07/2019 8:29:28 AM
[2019-06-05 06:49] LABS: BASO# 0.03 X1000 (0.0-0.2); BASO% 0.5 % (0.0-0.8); EOS# 0.34 X1000 (0.0-0.7); EOS% 5.2 % (0.0-10.0); HEMATOCRIT 24.8 % (37.0-47.0); HEMOGLOBIN 8.1 g/dL (12.0-16.0); IMM GRAN# 0.02 X1000 (0.0-0.04); IMM GRAN% 0.3 % (0.0-0.5); LYMPH% 33.8 % (20.5-51.1); MCH 27.8 PG (27-31); MCHC 32.7 g/dL (33-37); MCV 85.2 FL (81-99); MONO# 0.71 X1000 (0.11-0.59); MONO% 10.9 % (1.7-9.3); MPV 9.7 FL (7.4-10.4); NEUT% 49.3 % (42.2-75.2); PLT 291 X1000 (130-400); RBC 2.91 XMIL (4.2-5.4); RDW 14.2 % (11.5-14.5)
[2019-06-05 06:50] LABS: ALBUMIN 2.7 g/dL (3.5-5.0); CALCIUM 7.5 mg/dL (8.8-10.2); PHOSPHORUS 3.7 mg/dL (2.7-4.5); POTASSIUM 3.7 mmol/L (3.5-5.1)
[2019-06-05 06:53] LABS: CREATININE 6.5 mg/dL (0.5-0.9)
[2019-06-05] MEDS: VENTOLIN HFA INH SCH (08:34)
[2019-06-05] MEDS: DEMADEX PO SCH (09:24)
[2019-06-05] MEDS: LANTUS INSULIN SUBQ SCH (09:24)
[2019-06-05] MEDS: CULTURELLE PO SCH ×2 (09:24→20:58)
[2019-06-05] MEDS: ASPIRIN PO SCH (09:24)
[2019-06-05] MEDS: PROTONIX PO SCH ×2 (09:24→20:58)
[2019-06-05] MEDS: BYSTOLIC PO SCH (09:24)
[2019-06-05] MEDS: COZAAR PO SCH (09:30)
[2019-06-05] MEDS: ZOFRAN IV PRN (09:38)
[2019-06-05] MEDS ORDERED: HEPARIN IV PRN (11:02)
[2019-06-05] MEDS ORDERED: NS 2,000 ML MISC PRN (11:02)
[2019-06-05] MEDS ORDERED: TIGHT: 0.2 ML/HR FOR DIALYSIS MISC PRN (11:02)
--- NOTE | 2019-06-05 12:42 | CARDIOLOGY CONSULTATION ---
DATE: 06/05/2019 CONSULTATION REQUESTED BY: The hospitalist. REASON: Procedural apnea, bradycardia, and blood clot in the heart. HISTORY: Ms. Villa is a 59-year-old black female who is a end-stage renal disease dialysis patient who has a catheter in the right atrium. The patient presented at this time to the hospital on May 29 with a chief complaint of abdominal pain radiating into the chest and vomiting. The patient underwent an upper endoscopic procedure by Dr. Biju Molina on June 04. Reportedly during the procedure, the patient became apneic and bradycardic, requiring bag- mask ventilation and intubation. The patient tells me that she had been diagnosed with sleep apnea syndrome while she was living in [place], [place] and unfortunately she could not keep the CPAP mask that had been prescribed to her. At any rate, this episode of bradycardia was transient and resolved quickly. The patient had been given intravenous propofol by the anesthesia service. The findings of the endoscopy indicated that she has esophagitis in the distal esophagus, a 2 cm hiatal hernia and nodularity at the GE junction and biopsies were obtained. The patient states that she has been having discomfort when swallowing, especially when drinking cold fluids and it has become more intense and that is the reason why she came in the hospital. Yesterday, an echocardiogram was requested by the primary service that showed normal left ventricular systolic function. No pericardial effusion and a masslike density within the right atrium, very close to the roof of the right atrium, that appears to be an organized thrombus at the tip of a dialysis catheter. There is no indication of free motion of that mass as in fresh blood clot. The patient's chest x-ray done yesterday showed no evidence of abnormalities. The patient has not reported any dyspnea following the procedure. She denies having any swelling or any other issue at this time. She is asking me whether or not she can go to confucianism tomorrow. She does not want to eat oatmeal for breakfast she told the nurses. The patient is legally blind and has been on disability because of that. PAST HISTORY: Positive for long-term diabetes mellitus type 2 with end-organ damage including retina and kidneys. The patient has a history of hypertension. She used to live in [place], [place] and over there she was taken care of by a team of doctors and eventually they initiated hemodialysis on her about a year and a half ago. She has recently moved to [place]. SURGICAL HISTORY: She has a recently constructed left upper extremity arteriovenous fistula. However, she still has a dialysis catheter on the right subclavian area. ALLERGIES: Are positive for latex. HOME MEDICINES: 1. Albuterol inhaler. 2. Aspirin 81 mg daily. 3. Baclofen 5 mg daily. 4. Clindamycin 303 times a day. 5. Docusate 100 twice a day. 6. Gabapentin 600 three times a day. 7. Hydralazine 100 three times a day. 8. Hydrocodone 7.5/325 every 6 hours. 9. Lantus insulin 45 units at bedtime. 10. Insulin NPL lispro 75/25. 11. Linagliptin. 12. Tradjenta 5 mg daily. 13. Loratadine 10 mg daily. 14. Losartan 100 mg daily. 15. Meclizine 25 mg 3 times a day. 16. Nebivolol 10 mg daily plus 5 mg. 17. Nifedipine 20 mg daily. 18. Protonix 40 mg daily. 19. Pravachol 40 mg at bedtime. 20. Sevelamer carbonate 800 mg 3 times a day. 21. Sitagliptin 50 mg daily. 22. Torsemide 20 mg daily. Since yesterday, she has been started on heparin IV. REVIEW OF SYSTEMS: Negative for previous heart disease. Positive for sleep apnea syndrome. Positive for being legally blind as a result of diabetes mellitus. She has no claudication or trouble walking. She walks with a walker. SOCIAL HISTORY: She is single. She had miscarriages in the past. 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 She has been on disability because of blindness. Not a smoker or drinker. FAMILY HISTORY: Noncontributory. PHYSICAL EXAMINATION: Vital signs: Blood pressure is 142/46, temperature is 97.7 degrees, respiration 14, pulse 69. General: Awake, alert, in no distress. HEENT: Unremarkable. She does have a dialysis catheter on the right side of the chest. Chest: Clear to auscultation and percussion. Heart: Sounds are regular rhythmic. I do not hear a gallop or murmur. Abdomen: Obese, nontender. Extremities: Showed excellent dorsalis pedis pulses 3+ over 4+ bilaterally with no edema. Neurological Exam: Follows commands. Moves 4 extremities. Seems to be appropriate. BLOOD WORK: White cell count 6500, hemoglobin 8.1, hematocrit 24.8. Sodium 133, potassium 3.7, BUN 40, creatinine 6.5. Albumin is 2.7. IMPRESSION: 1. Patient who presented to the hospital with chest pain basically related to esophagitis. She already had endoscopic procedure. Diagnosis confirmed by GI. 2. Episode of apnea and bradycardia secondary to IV propofol on a background of sleep apnea syndrome. 3. End-stage renal disease on hemodialysis. 4. Diabetes mellitus with end-organ damage, legally blind. 5. Abnormal echocardiographic finding of possible thrombus at the tip of dialysis catheter. This appears to be organized. RECOMMENDATION: At this time strictly from Cardiology viewpoint, I agree with anticoagulation. As far as what to do with the catheter, I really do not have any specific suggestion. That needs to be sorted out by the primary service and the Nephrology service. If that catheter needs to be removed, I believe a cardiothoracic surgeon may have to be consulted because she may require atriotomy to remove the tip of the catheter and then the remaining body of the catheter may have to be pulled manually. I would check a D-dimer to see if the patient is actively forming clots or has evidence of fibrinolysis in a significant degree. If that is the case, consider doing a CT of the pulmonary arteries looking for blood clots in the lungs. Cardiac-yang, I do not believe this patient requires a stress test or any further intervention. Please call me back if you need any specific input. cc: Balta Gaxiola MD MTDD
--- NOTE | 2019-06-05 13:58 | NEPHROLOGY PROGRESS NOTE ---
DATE: 06/05/2019 SUBJECTIVE: She states, "I am blessed." Does not express any symptoms. OBJECTIVE: Vital Signs: Blood pressure 142/46, heart rate 69, respirations 14. General: No acute distress. Skin: Warm and dry. Neck: Neck veins are not visible. Heart: Regular. Lungs: Equal, no crackles. Abdomen: Obese, soft, nontender. Bowel sounds present. Extremities: No significant edema. IMPRESSION: Right atrial thrombus. I discussed this directly with Dr. Gaxiola. He states the clot appears organized and not acute. As such, I believe we can transition to oral anticoagulation with Eliquis 5 mg b.i.d. and stop the IV heparin. More definitive management can be addressed by her primary team of physicians once she is ready for discharge otherwise. Dialysis today, a 3 K bath. cc: Russell Quinonez MD
[2019-06-05] MEDS: ELIQUIS PO SCH ×2 (15:38→20:58)
--- NOTE | 2019-06-05 18:14 | PROGRESS NOTE ---
DATE: 06/05/2019 SUBJECTIVE: The patient is resting comfortably in bed. She has no complaints at this time. OBJECTIVE: Vital Signs: Temperature 98.2, blood pressure 139/81, heart rate 92, respirations 19, O2 saturation 100% on room air. General: This is a sbnhswmgeko-ivg-igscwvrmc elderly female lying in bed in no acute distress. Heart: S1, S2 normal. Regular rate and rhythm. Lungs: Equal air entry bilaterally. No wheezing. No rales. Abdomen: Positive bowel sounds. Soft, nontender, nondistended. Extremities: No edema. No cyanosis. Neurologic: The patient is legally blind, but alert and oriented x3. LABS: Hemoglobin 8.1, hematocrit 24, platelets 291. Sodium 133, potassium 3.7, chloride 97, CO2 21, BUN 40, creatinine 6.5, glucose 240, calcium 7.5. ASSESSMENT AND PLAN: 1. Bradyarrhythmia status post exposure to sedation. The patient is stable. 2. Right atrial thrombus. The patient has been switched to Eliquis. The patient will need to follow up with her outpatient cylinder block mechanic for further discussion. 3. Chronic kidney disease stage 5. Management as per the health program manager. 4. Clostridium difficile colitis. Continue on oral vancomycin. 5. Multiple duodenal ulcers. Continue on Protonix. 6. Esophagitis with multiple gastric erosions. Continue on Protonix. 7. Insulin-dependent diabetes mellitus. Continue on Lantus plus sliding-scale insulin. 8. Hypertension. Stable. 9. Anemia. The hemoglobin and hematocrit are a little lower today. We will continue to monitor closely. 10. Morbid obesity. Aware. 11. Disposition. We will transfer the patient to the medical floor. Filter Helper is working on inpatient rehab placement for the patient. cc: Nano Schafer MD [facility]
[2019-06-05] MEDS: BENTYL PO PRN (18:44)
[2019-06-05] MEDS: PRAVACHOL PO SCH (20:58)
--- NOTE | 2019-06-05 23:41 | PROVIDER PROGRESS NOTE ---
Progress Note S: No acute overnight events. No N/V. Patient reports appetite. She continues to have epigastric pain and chest discomfort that is improving. O: Last Vital Signs Temp 98.1 F 06/05/19 22:41 Pulse 74 06/05/19 22:41 Resp 17 06/05/19 22:41 BP 153/46 06/05/19 22:41 Pulse Ox 94 L 06/05/19 22:41 Height 5 ft 6 in Weight 254 lb GEN: awake, alert, NAD HEENT: anicteric, MMM NECK: supple, no LAD CV: RRR, no murmurs PULM: CTAB, no wheezing ABD: obese, soft, mild TTP in epigastric area, no rebound or guarding, BS present EXT: no c/c, WWP LABS: 06/05/19 06/05/19 06/05/19 05:30 05:30 05:30 WBC 6.50 Hgb 8.1 L Plt Count 291 Sodium 133 L Potassium 3.7 Chloride 97 L Carbon Dioxide 21 L BUN 40 H Creatinine 6.5 H Glucose 240 H Troponin T 0.067 Albumin 2.7 L EGD 06/04 ESOPHAGUS: Esophagitis was found in the distal esophagus. Esophagitis was LA Class D: Mucosal breaks involving more than 75% of esophageal circumference. A 2 cm hiatal hernia was noted. Nodularity at the GEJ at 35cm from incisors. Biopsies obtained with cold biopsy forceps. STOMACH: Multiple shallow erosions were found in the gastric antrum. A biopsy was performed using cold forceps. Sample sent for histology. DUODENUM: Multiple ranging between 5-9mm in size non-bleeding, shallow and clean-based ulcers were found in the duodenal bulb and 2nd part duodenum. A/P: Ms. Cammy Villa is a 59 year old woman with HTN, HLD, IDDM2, ESRD on HD who presents to the GI service with epigastric pain found to have LA grade D esophagitis, gastric erosis, and multiple clean based duodenal ulcers. Biopsies were obtain from the stomach and distal esophagus, which are pending. She has had some improvement in symptoms. Her anemia appears to be acute on chronic. No reported overt bleeding. Will continue to treat with twice daily PPI for 3 months. She will need repeat EGD at that time to assess for esophagitis healing. Avoid NSAIDs. Of note, she was also diagnosed with Cdiff yesterday and is now on oral vancomycin per primary. # LA grade D esophagitis # Gastric erosions # Duodenal ulcers # Anemia # Cdiff # ESRD
[2019-06-06] MEDS: HUMULIN R SUBQ SCH ×6 (00:33→21:09)
[2019-06-06] MEDS: APRESOLINE PO SCH ×3 (03:10→18:26)
[2019-06-06] MEDS: VANCOCIN PO SCH ×4 (04:58→21:09)
[2019-06-06 05:45] LABS: HEMATOCRIT 27.5 % (37.0-47.0); HEMOGLOBIN 8.8 g/dL (12.0-16.0); MCH 27.8 PG (27-31); MPV 9.1 FL (7.4-10.4); RBC 3.16 XMIL (4.2-5.4); RDW 14.7 % (11.5-14.5); WBC 7.56 X1000 (4.8-10.8)
[2019-06-06 06:26] LABS: CALCIUM 8.1 mg/dL (8.8-10.2); PHOSPHORUS 2.9 mg/dL (2.7-4.5); POTASSIUM 3.7 mmol/L (3.5-5.1)
[2019-06-06] MEDS: BYSTOLIC PO SCH (08:32)
[2019-06-06] MEDS: COZAAR PO SCH (08:32)
[2019-06-06] MEDS: ELIQUIS PO SCH ×2 (08:32→21:09)
[2019-06-06] MEDS: DEMADEX PO SCH (08:32)
[2019-06-06] MEDS: CULTURELLE PO SCH ×2 (08:33→21:09)
[2019-06-06] MEDS: PROTONIX PO SCH ×2 (08:33→21:09)
[2019-06-06] MEDS: ASPIRIN PO SCH (08:33)
[2019-06-06] MEDS: LANTUS INSULIN SUBQ SCH (08:50)
[2019-06-06] MEDS: VENTOLIN HFA INH SCH (09:36)
[2019-06-06] MEDS: ZOFRAN IV PRN (11:51)
--- NOTE | 2019-06-06 16:02 | PROGRESS NOTE ---
DATE: 06/06/2019 SUBJECTIVE: The patient is resting comfortably in bed. She has no complaints. She is not eating very much. OBJECTIVE: Vital Signs: Temperature 98.1 degrees, blood pressure 137/42, heart rate 76, respirations 14, O2 saturation is 100% on room air. General: This is a chronically ill- appearing, elderly female lying in bed, in no acute distress. Heart: S1, S2. Normal. Abdomen: Positive bowel sounds. Soft, nontender, nondistended. Extremities: No edema. No cyanosis. Neurologic: The patient is alert and oriented x3. LABS: White blood cell count 7.5, hemoglobin 8.8, hematocrit 27, platelets 302,000. Sodium 135, potassium 3.7, chloride 96, CO2 22, BUN 20, creatinine 5, glucose 152. ASSESSMENT AND PLAN: 1. Bradyarrhythmia status post exposure to sedation. Stable. 2. Right atrial thrombus. The patient is currently on Eliquis. 3. Chronic kidney disease stage 5. Management as per the christmas tree grower. 4. Clostridium difficile colitis. The patient is on oral vancomycin, today is day 3 of therapy. 5. Gastric and duodenal ulcers. Continue with Protonix. 6. Esophagitis. Continue on Protonix. 7. Insulin-dependent diabetes mellitus. Continue on Lantus plus sliding scale insulin. 8. Anemia. Stable. 9. Morbid obesity. Aware. 10. Disposition. The patient can be discharged to [facility] tomorrow. cc: Nano Schafer MD
--- NOTE | 2019-06-06 16:18 | PROVIDER PROGRESS NOTE ---
Progress Note S: No acute overnight events. Patient denies N/V, abdominal pain. O: Last Vital Signs Temp 98.1 F 06/06/19 12:53 Pulse 76 06/06/19 12:53 Resp 14 06/06/19 12:53 BP 137/42 06/06/19 12:53 Pulse Ox 100 06/06/19 12:53 Height 5 ft 6 in Weight 255 lb GEN: awake, alert, NAD HEENT: anicteric, MMM NECK: supple, no LAD CV: RRR, no murmurs PULM: CTAB, no wheezing ABD: obese, soft, NT/ND, BS present EXT: no c/c, WWP NEURO: nonfocal LABS: 06/06/19 06/06/19 05:24 05:24 WBC 7.56 Hgb 8.8 L Plt Count 302 Sodium 135 L Potassium 3.7 Chloride 96 L Carbon Dioxide 22 L BUN 20 Creatinine 5.0 H Glucose 152 H Albumin 3.0 L EGD 06/04 ESOPHAGUS: Esophagitis was found in the distal esophagus. Esophagitis was LA Class D: Mucosal breaks involving more than 75% of esophageal circumference. A 2 cm hiatal hernia was noted. Nodularity at the GEJ at 35cm from incisors. Biopsies obtained with cold biopsy forceps. STOMACH: Multiple shallow erosions were found in the gastric antrum. A biopsy was performed using cold forceps. Sample sent for histology. DUODENUM: Multiple ranging between 5-9mm in size non-bleeding, shallow and clean-based ulcers were found in the duodenal bulb and 2nd part duodenum. A/P: Ms. Cammy Villa is a 59 year old woman with HTN, HLD, IDDM2, ESRD on HD who presents to the GI service with epigastric pain found to have Cdiff, LA grade D esophagitis, gastric erosions, and multiple clean based duodenal ulcers. Biopsies were obtain from the stomach and distal esophagus, which are pending. She has had some improvement in symptoms. Her anemia appears to be acute on chronic. No reported overt bleeding. Will continue to treat with twice daily PPI for 3 months. She will need repeat EGD at that time to assess for esophagitis healing. Avoid NSAIDs. # LA grade D esophagitis # Gastric erosions # Duodenal ulcers # Anemia # Cdiff # ESRD Will follow with you.
[2019-06-06] MEDS: PRAVACHOL PO SCH (21:09)
[2019-06-07] MEDS: APRESOLINE PO SCH ×2 (02:20→10:27)
[2019-06-07] MEDS: HUMULIN R SUBQ SCH ×4 (02:59→13:39)
[2019-06-07] MEDS: VANCOCIN PO SCH ×2 (04:10→10:26)
[2019-06-07 05:38] LABS: HEMATOCRIT 25.5 % (37.0-47.0); HEMOGLOBIN 8.4 g/dL (12.0-16.0); MCH 28.4 PG (27-31); MCHC 32.9 g/dL (33-37); MCV 86.1 FL (81-99); MPV 9.3 FL (7.4-10.4); RBC 2.96 XMIL (4.2-5.4); RDW 14.4 % (11.5-14.5); WBC 7.68 X1000 (4.8-10.8)
[2019-06-07 05:56] LABS: ALBUMIN 2.9 g/dL (3.5-5.0); CALCIUM 7.9 mg/dL (8.8-10.2); PHOSPHORUS 3.6 mg/dL (2.7-4.5); POTASSIUM 3.8 mmol/L (3.5-5.1)
[2019-06-07 06:02] LABS: CREATININE 6.6 mg/dL (0.5-0.9)
[2019-06-07] MEDS: VENTOLIN HFA INH SCH (08:17)
--- NOTE | 2019-06-07 10:24 | DISCHARGE SUMMARY ---
ADMISSION DATE: 06/01/2019 DISCHARGE DATE: 06/07/2019 FINAL DISCHARGE DIAGNOSES: 1. Multiple gastric ulcers. 2. Multiple duodenal ulcers. 3. Clostridium difficile colitis. 4. Right atrial thrombus. 5. Bradyarrhythmia status post propofol exposure. 6. Esophagitis. 7. Poorly controlled insulin-dependent diabetes mellitus. 8. Anemia of chronic disease. 9. Hypertension. 10. Morbid obesity. 11. Chronic kidney disease stage V, on hemodialysis Friday, Friday, Friday. CONSULTATIONS: 1. Nephrology consultation with Dr. Quinonez. 2. GI consultation with Dr. Manuel. IMAGIN. CT of the abdomen and pelvis performed on 05/31/2019 that revealed colitis. 2. Echocardiogram performed on 06/04/2019 that revealed an ejection fraction of 70%. There is a thrombus in the right atrium. PROCEDURES: EGD performed on 06/04/2019 that revealed esophagitis. Multiple erosions in the gastric antrum. Multiple ulcers in the duodenum, duodenal bulb and second part of the duodenum. HOSPITAL COURSE: Ms. Villa is a 59-year-old female with a history of multiple medical problems, who presented to the ER with a chief complaint of nausea, vomiting, and abdominal pain x3 days. The patient had missed her dialysis as scheduled. On admission, the patient was noted to be profoundly hyperglycemic. The patient was admitted to the Hospitalist Service, and Nephrology was consulted for assistance with dialysis management. The patient was taken for dialysis; however she continued to complain of nausea and vomiting, so a CT of the abdomen and pelvis was done that revealed colitis. The patient was then started on Flagyl. The patient then started to complain of epigastric pain. GI was consulted. The patient was taken for an EGD on 06/04/2019 that revealed esophagitis, as well as gastric erosions and multiple duodenal ulcers. During the procedure, the patient became bradycardic and apneic. Following the procedure, an echocardiogram was done that revealed a right atrial thrombus. Cardiology was then consulted for further recommendations. It was recommended that the patient be started on anticoagulation in the form of Eliquis. Stool studies were also obtained that came back positive for Clostridium difficile. The patient was then switched to oral vancomycin, and Flagyl was discontinued. With the initiation of proton pump therapy and vancomycin, the patient's abdominal pain improved and the patient's diarrhea resolved. The patient is currently medically stable for discharge to inpatient rehab. On the day of discharge, the patient was noted to have a hemoglobin of 8.4, hematocrit of 25. Sodium of 133, potassium of 3.8 and a blood sugar of 220. DISCHARGE MEDICATIONS: 1. Bentyl 10 mg oral twice a day p.r.n. for abdominal cramps. 2. Lactobacillus 1 tab oral twice a day. 3. Eliquis 5 mg oral twice a day. 4. Lantus 45 units subcutaneous daily. 5. Protonix 40 mg oral twice a day. 6. Vancomycin 125 mg oral every 6 hours x7 days. 7. Cozaar 100 mg oral daily. 8. Torsemide 20 mg oral daily. 9. Bystolic 5 mg oral daily. 10. Pravachol 40 mg oral at bedtime. 11. Gabapentin 600 mg oral three times a day. 12. Januvia 50 mg oral daily. 13. Nifedipine 20 mg oral daily. 14. Colace 100 mg oral twice a day. 15. Hydralazine 100 mg oral three times a day. 16. Tradjenta 5 mg oral daily. 17. Loratadine 10 mg oral daily. 18. Albuterol one inhalation daily. 19. Baclofen 5 mg oral daily. 20. [place] 7.5/325 one tab oral every 6 hours p.r.n. for pain. 21. Sevelamer 800 mg oral three times a day. DISCHARGE DIET: 1800 [employer] renal diet. ACTIVITY: As tolerated. FOLLOWUP INSTRUCTIONS: The patient will need to follow up for her routine dialysis 3 times a week on Friday, Friday, Friday. 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 cc: Nano Schafer MD
[2019-06-07] MEDS: DEMADEX PO SCH (10:26)
[2019-06-07] MEDS: ELIQUIS PO SCH (10:26)
[2019-06-07] MEDS: ASPIRIN PO SCH (10:26)
[2019-06-07] MEDS: PROTONIX PO SCH (10:26)
[2019-06-07] MEDS: CULTURELLE PO SCH (10:26)
[2019-06-07] MEDS: LANTUS INSULIN SUBQ SCH (10:27)
[2019-06-07] MEDS: COZAAR PO SCH (10:27)
[2019-06-07] MEDS: BYSTOLIC PO SCH (10:27)
--- NOTE | 2019-06-07 11:59 | GASTROENTEROLOGY PROGRESS NOTE ---
DATE: 06/07/2019 SUBJECTIVE: Ms. Villa is a 59-year-old female resting in bed. She has denied any nausea, vomiting, or abdominal pain, but patient did c/o .feeling hungry and wanted another breakfast tray. Patient is legally blind. OBJECTIVE: Vital Signs: Temperature 97.8 degrees, pulse is 73, respirations 19, blood pressure 137/28, oxygen saturation 98% on room air. The patient's weight is 255 pounds. BMI is 41.2 kg/m2. General: The patient is morbidly obese, alert, oriented x3, and in no acute distress. HEENT: Pale conjunctivae. No icterus. The patient is legally blind. Neck: Supple. Lungs: Clear to auscultation in the anterior ferrara. Cardiovascular: Regular rate and rhythm. Abdomen: Obese, soft, nontender, nondistended. Active bowel sounds heard in all 4 quadrants. Extremities: No clubbing. No cyanosis. No edema. Pedal pulses 2+ present bilaterally, dialysis shunt on the left upper arm. Neurologic: She is alert, oriented x3. LABORATORY DATA: WBCs 7.68, RBC 2.96, hemoglobin 8.4, hematocrit 25.5, platelet count 298,000. Sodium 133, potassium 3.8, chloride 96, carbon dioxide 22, anion gap 15, BUN 24, creatinine 6.6, glucose 220, calcium 7.9, phosphorus 3.6, albumin is 2.9. IMPRESSION AND PLAN: 1. Esophagitis. 2. Gastric erosions. 3. Duodenal ulcers. 4. Anemia. 5. Clostridium difficile. 6. End-stage renal disease on dialysis 7. Hypertension. 8. Diabetes. PLAN: Ms. Villa is a 59-year-old female with a history of hypertension, diabetes, and end-stage renal disease on dialysis. GI has been following her for epigastric pain and Clostridium difficile. An endoscopy was done on 06/04 and she had esophagitis LA class D, 2 cm hiatal hernia and nodularity at the GEJ junction. She had multiple shallow erosions in the gastric antrum and 5-9 mm in size, nonbleeding shallow and clean based ulcers were found in the duodenal bulb. Biopsies have been taken. awaiting the results of the biopsy. The patient's hemoglobin and hematocrit is 8.4 and 25.5. No reports of current bleeding noticed. The patient is currently on Protonix 40 mg p.o. twice a day and culturelle. The patient is on Bentyl for her abdominal cramps. Her C-diff antigen was positive, she is receiving vancomycin 125 mg p.o. every 6 hours. The patient has discharge orders today to go to the rehab facility. We will continue to monitor the patient and follow the plan of care per PCP. This plan was discussed with Dr. Molina. Please call us for any further questions or concerns. Dictated by NICOLE Campos for Biju Molina MD Physician Attestation I have seen and examined the patient. I have discussed and reviewed the note by Lavern RIVERA and agree with findings and plan as documented. In brief, Ms. Cammy Villa is a 59 year old woman with HTN, HLD, IDDM2, ESRD on HD who presents to the GI service with epigastric pain found to have Cdiff, LA grade D esophagitis, gastric erosions, and multiple clean based duodenal ulcers. Biopsies were obtain from the stomach and distal esophagus, which are pending. Her GI symptoms have resolved. Her anemia appears to be acute on chronic. No reported overt bleeding. Will continue to treat with twice daily PPI for 3 months. She will need repeat EGD at that time to assess for esophagitis healing. Avoid NSAIDs. Awaiting placement. Will sign off. Please call with questions. [facility]
[2019-06-07 12:53] VITALS: BP 130/48
--- NOTE | 2019-06-07 14:46 | PROVIDER PROGRESS NOTE ---
Progress Note Subjective: Pt voices wanting to go home, she denies any uremic complaints. Objective: temp 98.5, pulse 71, respirations 19, blood pressure 146/46, 02 sat 100% on room air. Intake 1170, Output zero. General: obese -Martiniquais female lying in bed in no acute distress. HEENT: normocephalic, atraumatic, pupils equal and reactive, trachea midline. Skin: warm and dry. Neck: supple, no JVD. Cardiovascular: S1S2. Regular rate and rhythm. No murmurs or gallops noted. Respiratory: clear with equal air entry anteriorly. Abdomen: obese, soft, nontender nondistended. Bowel sounds present. : non inspected Extremities: Trace BLE edema Neurological: Alert and oriented to person, place, and time. Labs: WBC 7.68, RBC 2.96, hemoglobin 8.4, hematocrit 25.5, platelet count 298, sodium 133, potassium 3.8, chloride 96, carbon dioxide 22, BUN 24, creatinine 6.6. Impression: Chronic kidney disease stage 5D. Normal dialysis days MWF. She has an organized right atrial clot treated with Eliquis that we will defer to her primary program management analyst. We will work on getting her to [facility] rehab. Dr. Moody is her program management analyst. I discussed the case with his partner Mariza Gutierrez who will forward the information to Dr. Moody to formulate a plan. rg Blood pressure. In target. Fluid volume. Euvolemic on exam. Anemia. Chronically low but stable, does not need transfusion criteria. Electrolytes and acid base balance. Stable. Will be corrected with hemodialysis treatment today. Nutrition. Adequate. Ambulation. Up,with therapy. Medication review.
== END 2019-06-07 15:46 ==
LOC: ED 20:25 → INTOOBSV 23:33 → SUATTDRO 23:33 → 1N 23:33 → ICU 06-04 17:09 → 1N 06-05 22:29
PROVIDERS: ATTEND Internal Medicine

== ENCOUNTER 2019-06-25 11:10 | Inpatient (IN) ==
[2019-06-25] MEDS ORDERED: VANCOMYCIN 1 GM/NS 1 GM/250 ML IVPB IV ONE ×2 (11:59→19:00)
[2019-06-25] MEDS ORDERED: ROCEPHIN 1 GM in NS 50 ML IV ONE (11:59)
[2019-06-25 12:25] LABS: BASO# 0.03 X1000 (0.0-0.2); BASO% 0.4 % (0.0-0.8); EOS# 0.32 X1000 (0.0-0.7); EOS% 4.7 % (0.0-10.0); HEMATOCRIT 27.9 % (37.0-47.0); HEMOGLOBIN 8.5 g/dL (12.0-16.0); LYMPH# 2.31 X1000 (1.2-3.4); MCH 28.6 PG (27-31); MCHC 30.5 g/dL (33-37); MCV 93.9 FL (81-99); MONO# 0.56 X1000 (0.11-0.59); MONO% 8.2 % (1.7-9.3); MPV 9.7 FL (7.4-10.4); NEUT# 3.57 X1000 (1.4-6.5); NEUT% 52.7 % (42.2-75.2); PLT 216 X1000 (130-400); RBC 2.97 XMIL (4.2-5.4); RDW 16.7 % (11.5-14.5); WBC 6.79 X1000 (4.8-10.8)
[2019-06-25 12:29] LABS: INR 0.96; PROTIME 12.9 Seconds (11.0-16.0)
[2019-06-25 12:30] LABS: PTT 20.3 Seconds (22.3-41.8)
[2019-06-25 14:25] LABS: ALB/GLOB RATIO 0.8; ALBUMIN 2.8 g/dL (3.5-5.0); CALCIUM 8.4 mg/dL (8.8-10.2); CREATININE 4.4 mg/dL (0.5-0.9); TOTAL BILIRUBIN 0.17 mg/dL (0.20-1.00); TOTAL PROTEIN 6.2 g/dL (6.3-8.3)
[2019-06-25] MEDS ORDERED: NS 50 ML ONE (15:27)
--- NOTE | 2019-06-25 16:44 | PROVIDER DOCUMENTATION ---
This chart was entered by Mona Mejía Scribe, acting as scribe for Sanam Treadwell MD. HPI-Rash/Wound/ReCheck - General Stated Complaint: POST OP COMPLAINT Time Seen by Provider: 06/25/19 11:58 Source: patient, EMS (first response) Allergies/Adverse Reactions: Allergies Allergy/AdvReac Type Severity Reaction Status Date / Time Latex, Natural Rubber Allergy ITCHING Verified 06/25/19 12:03 Home Medications: Home Medication List Medication Instructions Recorded Confirmed Last Taken Type Unobtainable [Home Meds 06/25/19 06/25/19 Unknown History Unobtainable] - History of Present Illness-Dermatology Nature of Presenting Problem: 59 yobf presents to the ed with c/o wound that has opened from surgical placement of dialysis fistula. LUE is warm to palpation and painful. pt is legally blind and can not see wound but sts it has been hurting about 2 weeks Location: reports: upper extremity Quality: reports: painful Severity: reports: moderate Onset/Duration: reports: other (2 weeks) Timing: reports: still present Context/Associated Symptoms: reports: other (dehiscence of wound for fistula placement) Locality of Occurance: Home Similar Symptoms Previously?: Yes Recently seen or treated by another doctor?: Yes Review of Systems - Adult - REVIEW OF SYSTEMS - ADULT Constitutional: denies: chills, fever Eyes: reports: no symptoms reported Ears, Nose, Mouth & Throat: reports: no symptoms reported Cardiovascular: denies: chest pain, palpitations Respiratory: denies: chronic cough, shortness of breath, wheezing Gastrointestinal: denies: diarrhea, nausea, vomiting Genitourinary: reports: no symptoms reported Musculoskeletal: reports: see HPI, other (LUE). denies: back pain, neck pain Integumentary: reports: see HPI, other (dehiscence of LUE fistula) Neurological: denies: dizziness/vertigo, headache/migraines Psychiatric: reports: no symptoms reported Endocrine: reports: no symptoms reported Hematologic/Lymphatic: reports: no symptoms reported Allergic/Immunologic: reports: no symptoms reported All Other Systems: Reviewed and Negative Past History - Adult - PAST MEDICAL HISTORY-ADULT Review of Records: reports: Old Records Reviewed, Nursing Assessment Review, Medications Reviewed, Social history reviewed & non-contributory. Major Childhood Illnesses: reports: denies history Cardiovascular: reports: HTN, hyperlipidemia Respiratory: reports: sleep apnea Gastrointestinal: reports: denies history Obstetrical/Gynecological: reports: denies history Genitourinary: reports: dialysis (MWF), ESRD, kidney disease Musculoskeletal: reports: denies history Neurological: reports: CVA, stroke deficits (eyes) Psychiatric: reports: denies history Endocrine/Immune: reports: Diabetes Other Conditions: reports: blindness - PRIOR SURGERIES/PROCEDURES Surgical/Procedure History: reports: recent surgery (dialysis fistula), back/neck, other (fistula) - IMMUNIZATION STATUS Childhood Immunizations: See Nurse Assessment Flu Vaccine: See Nurse Assessment - FAMILY HISTORY Family History: reviewed, not pertinent - SOCIAL HISTORY Smoking: denies Substance Use: denies Living Situation: family Physical Exam-General - PHYSICAL EXAM-ADULT Initial Vital Signs Reviewed: Yes - CONSTITUTIONAL General Appearance: appears well, alert, no apparent distress, obese - EYES Eyes: pink conjunctivae, other (pt is blind) - HEAD, EARS, NOSE, MOUTH & THROAT HENMT: moist mucous membranes, other (no teeth) - NECK Neck: full range of motion, supple, normal inspection - RESPIRATORY Respiratory: chest non-tender, lungs clear, normal breath sounds - CARDIOVASCULAR Cardiovascular: normal peripheral pulses, regular rate, rhythm - CHEST (BREASTS) Chest/Breast: deferred - GASTROINTESTINAL (ABDOMEN) Abdominal Exam: normal bowel sounds, non tender, soft - GENITOURINARY Female Genitalia/Pelvic Exam: deferred Rectal Exam: deferred Hemoccult Exam: deferred - LYMPHATIC Lymphatic: no adenopathy - MUSCULOSKELETAL Back Exam: no CVA tenderness, no vertebral tenderness Extremity: normal capillary refill, pelvis stable, erythema (LUE), swelling (LUE), tenderness (with dehiscence of surgical fistula, hot to touch with swelling and erythema) - SKIN Integumentary: warm/dry, ecchymosis (LUE), swelling (LUE), tenderness (LUE), warm (LUE), other (dehiscence) - NEUROLOGIC Neurologic: grossly normal - PSYCHIATRIC Psych/Mental Status: normal mood/affect, normal thought content, normal thought process, oriented x 3 Progress - PLAN OF CARE/RESULTS Progress/Plan/Lab Results: Vital Signs - 8 hr 06/25/19 11:30 06/25/19 15:30 Temperature 98.9 F Pulse Rate 77 76 Respiratory Rate 18 18 Blood Pressure 167/65 125/36 O2 Sat by Pulse Oximetry 98 95 Laboratory Results - last 24 hr 06/25/19 06/25/19 06/25/19 11:53 11:53 12:18 WBC 6.79 RBC 2.97 L Hgb 8.5 L Hct 27.9 L MCV 93.9 MCH 28.6 MCHC 30.5 L RDW Std Deviation 16.7 H Plt Count 216 MPV 9.7 Immature Gran % (Auto) 0.0 Neut % (Auto) 52.7 Lymph % (Auto) 34.0 [place] % (Auto) 8.2 Eos % (Auto) 4.7 Baso % (Auto) 0.4 Immature Gran # (Auto) 0.00 Neut # (Auto) 3.57 Lymph # (Auto) 2.31 [place] # (Auto) 0.56 Eos # (Auto) 0.32 Baso # (Auto) 0.03 PT 12.9 INR 0.96 PTT (Actin FS) 20.3 L Sodium Potassium Chloride Carbon Dioxide Anion Gap BUN Creatinine Estimated GFR/1.73 m2 BUN/Creatinine Ratio Glucose Calculated Osmolality Calcium Total Bilirubin AST ALT Alkaline Phosphatase Creatine Kinase Troponin T High Sens Total Protein Albumin Globulin Albumin/Globulin Ratio Plasma Lactate 1.9 06/25/19 06/25/19 06/25/19 13:46 13:46 16:09 WBC RBC Hgb Hct MCV MCH MCHC RDW Std Deviation Plt Count MPV Immature Gran % (Auto) Neut % (Auto) Lymph % (Auto) [place] % (Auto) Eos % (Auto) Baso % (Auto) Immature Gran # (Auto) Neut # (Auto) Lymph # (Auto) [place] # (Auto) Eos # (Auto) Baso # (Auto) PT INR PTT (Actin FS) Sodium 135 L Potassium 4.0 Chloride 97 L Carbon Dioxide 26 Anion Gap 12 BUN 13 Creatinine 4.4 H Estimated GFR/1.73 m2 12 BUN/Creatinine Ratio 3 Glucose 228 H Calculated Osmolality 277 Calcium 8.4 L Total Bilirubin 0.17 L AST 12 ALT 6 L Alkaline Phosphatase 74 Creatine Kinase 61 Troponin T High Sens 125 H* Total Protein 6.2 L Albumin 2.8 L Globulin 3.4 Albumin/Globulin Ratio 0.8 Plasma Lactate 1.9 Orders Category Date Time Status Cardiac Monitoring DIRECTED Care 06/25/19 11:58 Active IV Insertion ORDERED Care 06/25/19 11:58 Completed Notify MD of + Sepsis Screen NOW Care 06/25/19 11:58 Active Notify Physician As Ordered Care 06/25/19 11:58 Active BLOOD CULTURE [BLDCUL] Stat Lab 06/25/19 13:46 Results CBC WITH DIFF [HEME] Stat Lab 06/25/19 11:53 Completed CK PROFILE [SP CHEM] Routine Lab 06/25/19 13:46 Completed COMPREHENSIVE METABOLIC PANEL [CHEM] Routine Lab 06/25/19 13:46 Completed LACTATE, PLASMA [CHEM] Lab 06/25/19 12:18 Completed LACTATE, PLASMA [CHEM] Lab 06/25/19 16:09 Completed LACTATE, PLASMA [CHEM] Lab 06/25/19 18:00 Uncollected PROTIME WITH INR [COAG] Stat Lab 06/25/19 11:53 Completed PTT [COAG] Stat Lab 06/25/19 11:53 Completed TROPONIN T HIGH SENSITIVITY Routine Lab 06/25/19 13:46 Completed 0.9% Sodium Chloride Inj [Ns] 50 ml Med 06/25/19 15:27 Discontinued .ROUTE As directed CefTRIAXONE [Rocephin] 1 gm Med 06/25/19 11:59 Discontinued 0.9% Sodium Chloride Inj [Ns] 50 ml IV NOW Vancomycin 1 gm/Ns Med 06/25/19 11:59 Discontinued 1 gm in 250 ml IV NOW Oxygen Device Stat Oth 06/25/19 11:58 Active Result Diagrams: 06/25/19 11:53 06/25/19 13:46 - REASSESSMENT Reassessment #1 Time Reassessed: 15:02 (pt resting in bed with family at bedside) Status: improving Reassessment #2 Time Reassessed: 16:16 (pt is resting in bed) Status: unchanged - CONSULTS/PCP/HOSPITALIST Notification #1 *Consult/PCP/Hospitalist*: Dr Ferraro Time Discussed: 16:05 Consult Disposition: Will see in ED, Admit (recommended admission to the hospitalist) #2 Consult: [facility] Time Discussed: 16:21 Consult Disposition: Will see in ED, Admit Departure - Departure Date of Disposition Decision: 06/25/19 Time of Disposition Decision: 16:14 DIAGNOSIS: Wound dehiscence Cellulitis Qualifiers: Site of cellulitis: extremity Site of cellulitis of extremity: upper extremity Laterality: left Qualified Code(s): L03.114 - Cellulitis of left upper limb Disposition: ADMITTED INPATIENT 09 Certified Medical Emergency: Emergent Condition: Good Referrals and Follow-Ups: None,PCP [Primary Care Provider] - - Critical Care Note This patient required my direct & personal management of CC.: No Attestation - Physician/ AMBREEN Attestation Patient care was provided by Advanced Practice Provider:: No The physician spent face to face time with patient:: Yes Advanced Practice Provider documentation review:: Supervising physician onsite and consulted in the evaluation and care of this patient. The physician did have a face to face encounter with the patient. This chart was documented by the indicated scribe, (Mona Mejía Scribe) and accurately reflects the services I performed and decisions made by me, Sanam Treadwell MD, as attested by the provider's signature.
[2019-06-25] MEDS ORDERED: VANCOMYCIN IV PER PHARMACY MISC SCH (18:18)
[2019-06-25] MEDS ORDERED: ZOFRAN IV PRN (18:18)
[2019-06-25] MEDS ORDERED: TYLENOL PO PRN (18:18)
[2019-06-25] MEDS: MORPHINE IV PRN (19:21)
[2019-06-25] MEDS: HUMULIN R SUBQ SCH (22:31)
[2019-06-25] MEDS: HEPARIN SUBQ SCH (22:31)
--- NOTE | 2019-06-25 22:44 | HISTORY AND PHYSICAL ---
CHIEF COMPLAINT: Left arm wound, open. HISTORY OF PRESENT ILLNESS: This is a 59-year-old female with end-stage renal disease, diabetes, and hypertension. She has had an AV fistula placed per Dr. Ferraro, it looks like on May 25. The area is painful. It has not been used, according to the family member. It has been opening for the last week. It is draining serosanguineous, but it does not clearly look like cellulitis. No subjective fevers. She is morbidly obese. Her BMI is 42, and there is a large amount of adipose tissue associated with her AV fistula site. The patient was evaluated and admitted for treatment of her wound dehiscence and anticipated surgical closure. We will continue to follow. PAST MEDICAL HISTORY: 1. Hypertension. 2. End-stage renal disease. 3. Type 2 diabetes, 4. Morbid obesity. 5. Dyslipidemia. 6. Legally blind. PAST SURGICAL HISTORY: She has had an AV fistula. ALLERGIES: Latex and natural rubber. SOCIAL HISTORY: No tobacco or alcohol. She is currently residing in a senior living. FAMILY HISTORY: Reviewed, noncontributory. REVIEW OF SYSTEMS: Otherwise negative times a 10-point review of systems. MEDICATIONS: I do not have a list at all. PHYSICAL EXAMINATION: VITAL SIGNS: Blood pressure is 125/36, heart rate of 76, respiratory rate 18, temperature 98.9, 95% on room air. GENERAL: A well-developed female in no acute distress. HEAD: Normocephalic, atraumatic. She is legally blind with leukocoria. EARS, NOSE AND THROAT: Moist mucous membranes. CARDIOVASCULAR: Regular rate and rhythm. PULMONARY: Bilateral breath sounds clear to auscultation. GI: Soft, nontender, nondistended. Bowel sounds are positive. NEUROLOGIC: Nonfocal. MUSCULOSKELETAL: Strength 4/5 in all 4 extremities. LABORATORY DATA: White count 6, hemoglobin and hematocrit 8 and 27, platelets 216. INR is normal. Creatinine 4.4. Sugar 228. Troponin was 125. Her previous troponins have been mildly elevated in any case, but she is not having any symptoms. I am not even quite sure why we checked her troponin. ASSESSMENT/PLAN: A 59-year-old female with dialysis, diabetes, and morbid obesity, who has a wound dehiscence over her left arteriovenous fistula. 1. Wound dehiscence. We will continue to monitor. She does not have any clear signs of infection. She has been placed on vancomycin and Rocephin, but I think we are just going to monitor her. Dr. Ferraro has evaluated her and will end up needing to do closure. I am not really sure if we need to continue any antibiotics at this point, but we will at least continue the vancomycin for right now. 2. Type 2 diabetes. We will resolve her medications. We will continue to monitor her blood sugars, check an A1c and follow closely. Continue sliding-scale insulin. 3. Hypertension. We will continue to monitor closely. Continue regular medications once those have been resolved. cc: Kiko Shah MD
--- NOTE | 2019-06-26 05:28 | GENERAL SURGERY CONSULTATION ---
DATE: 06/25/2019 REASON FOR CONSULTATION: Left arm wound. HISTORY OF PRESENT ILLNESS: This is a 59-year-old female known to me. She underwent a transposed left brachial basilic arteriovenous fistula, left upper extremity a couple weeks ago. She was seen this week in my office and she had some swelling and pain consistent with a seroma, but she developed further separation of her wound and dialysis sent her to the emergency room. She was started on vancomycin. She denies any bleeding from her wound but has had some serous drainage. No fevers, but just a lot of pain, mostly at the incision site not in her hand. MEDICAL HISTORY: End-stage renal disease, blindness, diabetes, hypertension. SURGICAL HISTORY: She has had a right-sided PermCath. She has also had a left upper extremity brachial basilic arterial venous fistula and she has had a failed, from an outside hospital, brachiocephalic arterial venous fistula. SOCIAL HISTORY: I believe she smoked in the past but none current. FAMILY HISTORY: Reviewed and noncontributory. REVIEW OF SYSTEMS: Ten point negative other than what is in HPI. A 10 point review of system was performed. OBJECTIVE: Vital signs: She is afebrile, temperature 99.1, pulse 78, blood pressure 136/93, oxygen saturation 97%. General: She is alert, appears uncomfortable, but in no acute distress. Cardiovascular: Normal rate. Pulmonary: No increased work of breathing. Abdomen: Soft, obese, nontender. Integument: Warm and dry. Peripheral vascular: Left upper extremity is well perfused as is her right. It is obese. There is a medial biceps area incision with a central separation dehiscence of the skin. There is no exposed graft. There is no betty purulence, no necrosis. Distal hand is well perfused. LABORATORY DATA: White count 6, hematocrit 27, platelets 216,000. Creatinine is 4.4, potassium 4.0. ASSESSMENT AND PLAN: A 59-year-old female with wound dehiscence and seroma formation of her medial left forearm. I suspect there could be some component of cellulitis here, although there is not a lot of redness, no purulence. In the office just a day or 2 ago, she did have flow noted in her fistula and her hand is well perfused. We will continue local wound care with saline wet- to-dry, we will monitor her. She may ultimately need washout and exploration of the wound but we will observe for now. She has been admitted the hospitalist. Unclear when the last time she had dialysis was, but she does have a functional catheter. cc: María Ferraro MD
[2019-06-26] MEDS: HUMULIN R SUBQ SCH ×4 (06:48→22:01)
[2019-06-26] MEDS: PRILOSEC PO SCH (06:48)
[2019-06-26 07:34] LABS: ALB/GLOB RATIO 0.7; ALBUMIN 2.6 g/dL (3.5-5.0); CALCIUM 8.3 mg/dL (8.8-10.2); POTASSIUM 4.6 mmol/L (3.5-5.1); TOTAL BILIRUBIN 0.17 mg/dL (0.20-1.00); TOTAL PROTEIN 6.1 g/dL (6.3-8.3)
[2019-06-26 07:43] LABS: BASO# 0.02 X1000 (0.0-0.2); BASO% 0.4 % (0.0-0.8); EOS# 0.31 X1000 (0.0-0.7); EOS% 6.4 % (0.0-10.0); HEMATOCRIT 26.3 % (37.0-47.0); HEMOGLOBIN 7.7 g/dL (12.0-16.0); HEMOGLOBIN A1C 9.3 % (4.8-6.0); LYMPH# 1.86 X1000 (1.2-3.4); LYMPH% 38.5 % (20.5-51.1); MCHC 29.3 g/dL (33-37); MCV 95.6 FL (81-99); MONO# 0.41 X1000 (0.11-0.59); MONO% 8.5 % (1.7-9.3); MPV 9.7 FL (7.4-10.4); NEUT# 2.23 X1000 (1.4-6.5); NEUT% 46.2 % (42.2-75.2); PLT 226 X1000 (130-400); RBC 2.75 XMIL (4.2-5.4); RDW 16.5 % (11.5-14.5); WBC 4.83 X1000 (4.8-10.8)
[2019-06-26 07:45] LABS: CREATININE 5.7 mg/dL (0.5-0.9)
[2019-06-26] MEDS: MORPHINE IV PRN ×2 (08:00→21:57)
[2019-06-26] MEDS: HEPARIN SUBQ SCH ×2 (08:00→22:01)
[2019-06-26] MEDS ORDERED: VANCOMYCIN 1 GM/NS 1 GM/250 ML IVPB IV SCH (11:30)
[2019-06-26] MEDS: ROCEPHIN 1 GM in NS 50 ML IV SCH (16:02)
--- NOTE | 2019-06-26 16:10 | NEPHROLOGY CONSULTATION ---
DATE: 06/26/2019 REASON FOR CONSULTATION: Assistance with management, evaluation and treatment. I was consulted by Dr. Treadwell in the emergency room. HISTORY OF PRESENT ILLNESS: Ms. Villa is a 59-year-old, woman with CKD 5D. She receives dialysis every Friday, Friday, Friday at the local [facility] on spring. She did receive her dialysis on the . She is currently dialyzing with a venous catheter in the right IJ. She had a recent left upper arm transposition fistula created by Dr. Ferraro on May 25. She was brought to the emergency room because of drainage. This wound has been evaluated by Dr. Ferraro who feels that she does have wound dehiscence with seroma formation and possible cellulitis. She has been treated with empiric antibiotics including ceftriaxone and vancomycin. Vancomycin only has been continued. She states she feels better today. No chills, fever, sweats, nausea, vomiting, etc. PAST MEDICAL HISTORY: As above. HOME MEDICATIONS: Apixaban, clindamycin, dicyclomine, gabapentin, hydralazine, hydrocodone, insulin, lactobacillus, linagliptin, losartan, nebivolol, nifedipine, pravastatin, sevelamer, sitagliptin, torsemide, albuterol docusate, loratadine, pantoprazole. ALLERGIES: Latex and rubber. SOCIAL HISTORY: Otherwise noncontributory. She currently resides in a senior care. FAMILY HISTORY: Otherwise noncontributory. REVIEW OF SYSTEMS: Otherwise noncontributory. PHYSICAL EXAMINATION: Vital Signs: Blood pressure 148/43, heart rate 76, respirations 16, afebrile. General: An obese woman in no acute distress. Skin: Warm and dry. HEENT: Conjunctivae are pink and moist. Pupils are equal. Neck: Neck veins are not appreciated. Trachea is midline. Heart: Regular. No gallops. Lungs: Equal. No crackles or wheezes. Abdomen: Soft, nontender, obese. Bowel sounds present. No organomegaly or masses. Extremities: Trace edema. No clubbing or cyanosis. Left upper arm fistula is dressed. Maryann are still in place. No obvious discharge at this time. IMPRESSION: 1. Chronic kidney disease 5D. She is appropriately dialyzed, and her electrolytes/acid base/volume status all in target. Next treatment on Friday. 2. Anemia. Hemoglobin 7.7 today. She is not bleeding from her wound. We will check iron stores, B12, folate, and treat as appropriate. 3. Hypertension, acceptable. 4. Possible cellulitis. I dosed her with vancomycin. cc: Russell Quinonez MD
--- NOTE | 2019-06-26 16:21 | GENERAL SURGERY PROGRESS NOTE ---
DATE: 06/26/2019 SUBJECTIVE: She is doing okay. Still having some serous drainage. Pain is better. No fevers. No tachycardia. OBJECTIVE: Vital signs: Blood pressure 148/43. Extremities: On exam, right upper extremity wound has a dressing in place, wet to dry. Her hand is well perfused. ASSESSMENT AND PLAN: A 59-year-old female with central wound dehiscence from her arteriovenous fistula related to a seroma. She had quite a large space given the obesity and the size of her arm. We will continue local wound care here. I do not see obvious signs of infection. Blood cultures are pending. White count is normal, and she is not having fevers, and I have not seen any purulence or cellulitis significantly. She is on antibiotics which is reasonable. We will continue local wound care and follow her along. cc: María Ferraro MD
[2019-06-26] MEDS ORDERED: SODIUM CHLORIDE 0.9% INJ SCH (16:30)
[2019-06-26] MEDS: PEPCID IV SCH (16:34)
[2019-06-26] MEDS: ATARAX PO SCH ×2 (16:34→21:56)
--- NOTE | 2019-06-26 17:27 | PROGRESS NOTE ---
DATE: 06/26/2019 SUBJECTIVE: The patient has really had no major issues, but this afternoon she suddenly had a reaction to the telemetry pads. She is allergic to latex. These are a non-latex type, but she had whelps and things of that nature. When I saw her, everything had resolved by that point. OBJECTIVE: Vital Signs: Blood pressure 138/47, heart rate 74, respiratory rate 16, temperature 98.4. Cardiovascular: Regular rate and rhythm. Pulmonary: Bilateral breath sounds, clear to auscultation. Abdomen: Soft, nontender, nondistended. Bowel sounds are positive. LABORATORY DATA: Her hemoglobin and hematocrit have dropped a bit, down to 7.7 and 26. Creatinine 5.7. PROBLEM LIST: 1. Arteriovenous fistula wound dehiscence. Dr. Ferraro feels like there is infection/cellulitis, so she is on vancomycin renally dosed, and then she is also on Rocephin I have added Rocephin today and will continue to follow. 2. End-stage renal. She has dialysis per Dr. Quinonez. She has a dialysis catheter in until her fistula matures. 3. Allergic reaction. She is on Pepcid and Atarax. We will continue to monitor. I will hold off on steroids because it has already resolved, and we will continue to follow closely. cc: Kiko Shah MD
[2019-06-26] MEDS ORDERED: ATARAX PO SCH (21:00)
[2019-06-27] MEDS: PRILOSEC PO SCH (06:44)
[2019-06-27] MEDS: HUMULIN R SUBQ SCH ×4 (06:45→22:12)
[2019-06-27 08:14] LABS: BASO# 0.05 X1000 (0.0-0.2); BASO% 0.9 % (0.0-0.8); EOS% 5.5 % (0.0-10.0); HEMATOCRIT 28.9 % (37.0-47.0); HEMOGLOBIN 8.7 g/dL (12.0-16.0); LYMPH# 1.98 X1000 (1.2-3.4); LYMPH% 36.2 % (20.5-51.1); MCH 29.1 PG (27-31); MCHC 30.1 g/dL (33-37); MCV 96.7 FL (81-99); MONO# 0.47 X1000 (0.11-0.59); MONO% 8.6 % (1.7-9.3); MPV 9.8 FL (7.4-10.4); NEUT# 2.67 X1000 (1.4-6.5); NEUT% 48.8 % (42.2-75.2); PLT 241 X1000 (130-400); RBC 2.99 XMIL (4.2-5.4); RDW 15.9 % (11.5-14.5); WBC 5.47 X1000 (4.8-10.8)
[2019-06-27] MEDS: HEPARIN SUBQ SCH ×2 (08:24→22:23)
[2019-06-27] MEDS: ATARAX PO SCH ×2 (08:24→22:23)
[2019-06-27 08:25] LABS: CALCIUM 8.7 mg/dL (8.8-10.2); POTASSIUM 4.8 mmol/L (3.5-5.1)
[2019-06-27] MEDS: PEPCID IV SCH ×2 (08:25→22:24)
[2019-06-27 08:44] LABS: CREATININE 6.5 mg/dL (0.5-0.9)
[2019-06-27 09:01] LABS: FERRITIN 326 ng/mL (13-150)
[2019-06-27] MEDS: MORPHINE IV PRN ×2 (12:45→17:57)
--- NOTE | 2019-06-27 15:07 | GENERAL SURGERY PROGRESS NOTE ---
DATE: 06/27/2019 SUBJECTIVE: No events overnight. No fevers. No tachycardia. Left arm is well perfused. She is sleeping. Dressing changes going well. White count 5, hematocrit 28, creatinine is 6.5. ASSESSMENT AND PLAN: A 59-year-old female with dehiscence of a superficial wound related to seroma and obese arm. Her hand is well perfused. We will continue local wound care going forward but no plans for surgical intervention at this juncture. cc: María Ferraro MD
[2019-06-27] MEDS: ROCEPHIN 1 GM in NS 50 ML IV SCH (16:57)
[2019-06-27] MEDS ORDERED: DEMADEX PO PRN (18:32)
[2019-06-27] MEDS ORDERED: PROCARDIA PO PRN (18:32)
[2019-06-27] MEDS ORDERED: BENTYL PO PRN (18:32)
--- NOTE | 2019-06-27 19:01 | PROGRESS NOTE ---
DATE: 06/27/2019 SUBJECTIVE: Cammy Villa is complaining of itching all over. OBJECTIVE: Blood pressure 151/46, heart rate 72, respiratory 16, temperature 93 degrees, 99% on room air cardiovascular regular rate and rhythm.Pulmonary: Bilateral breath sounds. Clear to auscultation. Gastrointestinal: Abdomen was soft, nontender, nondistended. Bowel sounds are positive. LABORATORY DATA: White count 5, hemoglobin and hematocrit 8 and 28, platelets 241,000. BUN and creatinine 25 and 6.5, sugar 269. PROBLEM LIST: 1. Arteriovenous fistula wound dehiscence. We will continue vancomycin and Rocephin and follow her Gram. Her culture is no growth so far. Dr. Ferraro is not planning to do any surgery. So, we will continue to monitor. I defer to him about what next are we going to do. 2. End-stage renal: We will continue dialysis per Renal recommendations. 3. Type 2 diabetes. I do not think she is getting her regular medications as we are holding her Eliquis for right now, but she needs to get back on her medications because I do not think she has been well controlled. So, we will resume her medications and follow. 4. Hypertension. Continue regular medications. DISPOSITION: Pending her clinical status, but home at the discretion of Surgery when they feel her wound is stabilized. cc: Kiko Shah MD
[2019-06-27] MEDS: RENAGEL PO SCH (19:19)
[2019-06-27] MEDS: NEURONTIN PO SCH (22:22)
[2019-06-27] MEDS: CULTURELLE PO SCH (22:22)
[2019-06-27] MEDS: PRAVACHOL PO SCH (22:22)
[2019-06-27] MEDS: TRADJENTA PO SCH (22:23)
[2019-06-27] MEDS: APRESOLINE PO SCH (22:23)
[2019-06-27] MEDS: COLACE PO SCH (22:23)
[2019-06-28] MEDS: RENAGEL PO SCH ×4 (06:35→21:38)
[2019-06-28] MEDS: APRESOLINE PO SCH ×5 (06:36→21:34)
[2019-06-28] MEDS: NEURONTIN PO SCH ×6 (06:36→21:34)
[2019-06-28] MEDS ORDERED: HEPARIN IV PRN (06:38)
[2019-06-28] MEDS: PRILOSEC PO SCH (06:38)
[2019-06-28] MEDS ORDERED: NS 2,000 ML MISC PRN (06:38)
[2019-06-28] MEDS ORDERED: TIGHT: 0.2 ML/HR FOR DIALYSIS MISC PRN (06:38)
[2019-06-28] MEDS: PROTONIX PO SCH ×3 (06:41→06:59)
[2019-06-28] MEDS: HUMULIN R SUBQ SCH ×3 (07:00→21:38)
[2019-06-28] MEDS: NORCO-7.5 PO PRN ×2 (07:04→21:33)
[2019-06-28] MEDS ORDERED: LANTUS INSULIN SUBQ SCH (09:00)
[2019-06-28] MEDS: HEPARIN SUBQ SCH ×2 (09:56→21:34)
[2019-06-28] MEDS: TRADJENTA PO SCH (09:56)
[2019-06-28] MEDS: CLARITIN PO SCH (09:57)
[2019-06-28] MEDS: JANUVIA PO SCH (09:57)
[2019-06-28] MEDS: BYSTOLIC PO SCH (09:57)
[2019-06-28] MEDS: CULTURELLE PO SCH ×2 (09:57→21:34)
[2019-06-28] MEDS: COZAAR PO SCH (09:57)
[2019-06-28] MEDS: COLACE PO SCH ×2 (09:57→21:34)
[2019-06-28] MEDS: VENTOLIN HFA INH SCH (09:59)
[2019-06-28] MEDS: PEPCID IV SCH (10:09)
[2019-06-28 10:13] LABS: ALBUMIN 2.9 g/dL (3.5-5.0); CALCIUM 8.2 mg/dL (8.8-10.2); PHOSPHORUS 5.5 mg/dL (2.7-4.5); POTASSIUM 5.1 mmol/L (3.5-5.1)
[2019-06-28 10:21] LABS: CREATININE 7.9 mg/dL (0.5-0.9)
--- NOTE | 2019-06-28 11:33 | NEPHROLOGY PROGRESS NOTE ---
DATE: 06/28/2019 DATE AND TIME OF EXAM: 06/28/2019 at 0725 hours. SUBJECTIVE: Ms. Villa is currently resting quietly on the side of the bed. States that her left upper arm is sore. OBJECTIVE: Her most recent vital signs: Temperature is 98.8 degrees, blood pressure 145/57, heart rate 72, respirations 18. She is on room air. Last recorded saturation 98%. She has had 1410 in, nothing out. She is in need for dialysis today. Physical Examination General: This is a 59-year-old female resting quietly on the side of the bed. She appears chronically ill, though no acute distress. Skin: Warm and dry. HEENT: Normocephalic, atraumatic. Conjunctiva is pale. The patient is legally blind. She is non focusing. Neck: Supple. Trachea midline. No evidence of JVD. Cardiovascular: She is regular rate and rhythm. She has no murmur or gallop appreciated. Lungs: Clear to auscultation bilaterally. Equal excursion. She is on room air. Abdomen: Large, obese, soft, nontender. Positive bowel sounds. Genitourinary: Not inspected. Minimal void with dialysis assist. Extremities: Patient has a left upper arm fistula that is currently dressed. Her left arm is in a sling. She has no drainage present. The patient has trace lower extremity edema; these are dependent. Integumentary: The left upper arm not inspected. Tunnel dialysis to the right chest wall is dry and intact. Neurological: She is alert and oriented x3. LABS: Her labs are currently pending. Her last potassium of 4.8. Previous hemoglobin 8.7. The patient has blood cultures of gram-positive cocci to the left upper arm after wound dehiscence secondary to a left upper arm fistula placement. She has a tunnel dialysis catheter to her right chest wall, which is dry and intact. ASSESSMENT AND PLAN: 1. Chronic kidney disease stage 5 D. Patient is due for her routine dialysis treatment today. We will place her on a 2 potassium bath. She is to dialyze for 3-1/2 hours. We will attempt to pull her to her outpatient dry weight per her prescription per Dr. Wilkinson. 2. Electrolytes and acid-base balance with correction on dialysis. 3. Anemia. The patient has a hemoglobin 11.7. This remains stable. 4. Dehisced left upper arm fistula. This remains dressed. She has been dosed with vancomycin. She is also receiving Rocephin every 24 hours. I would to thank you for allowing us to follow with this patient. Dictated by NICOLE Lind for Russell Quinonez MD cc: NICOLE Lind MD [facility]
--- NOTE | 2019-06-28 17:50 | PROGRESS NOTE ---
DATE: 06/28/2019 SUBJECTIVE: She is examined during dialysis. She seems to be doing okay. No complaints. Itching has resolved. OBJECTIVE: Vital Signs: Blood pressure 131/43, heart rate 69, respiratory rate 16, temperature 99.1 degrees. 100% on room air. Cardiovascular: Regular rate and rhythm. Pulmonary: Bilateral breath sounds clear to auscultation. Gastrointestinal: Abdomen soft, nontender, nondistended. Bowel sounds are positive. LABORATORY DATA: Electrolytes look okay. Sugars are still a bit on the high side. PROBLEM LIST: 1. Arteriovenous fistula wound dehiscence. We will continue antibiotics. Dr. Ferraro is monitoring. Continue wound care. 2. End-stage renal. Continue dialysis Friday, Friday, Friday. 3. Type 2 diabetes. I do not think her sugars are really that well controlled. We may need to adjust her insulin a little bit more. She is only on 45 units in and I am going to at least bump that up to 50 and we will see how things look. DISPOSITION: Per clinical status. cc: Kiko Shah MD
[2019-06-28] MEDS: PRAVACHOL PO SCH (21:34)
[2019-06-28] MEDS: ROCEPHIN 1 GM in NS 50 ML IV SCH (21:36)
[2019-06-29 05:17] LABS: BASO# 0.05 X1000 (0.0-0.2); BASO% 0.9 % (0.0-0.8); EOS# 0.23 X1000 (0.0-0.7); EOS% 3.9 % (0.0-10.0); HEMATOCRIT 26.2 % (37.0-47.0); IMM GRAN# 0.04 X1000 (0.0-0.04); IMM GRAN% 0.7 % (0.0-0.5); LYMPH# 1.84 X1000 (1.2-3.4); LYMPH% 31.5 % (20.5-51.1); MCH 28.6 PG (27-31); MCHC 30.5 g/dL (33-37); MCV 93.6 FL (81-99); MONO# 0.46 X1000 (0.11-0.59); MONO% 7.9 % (1.7-9.3); MPV 9.3 FL (7.4-10.4); NEUT# 3.23 X1000 (1.4-6.5); NEUT% 55.1 % (42.2-75.2); PLT 246 X1000 (130-400); RDW 14.9 % (11.5-14.5); WBC 5.85 X1000 (4.8-10.8)
[2019-06-29 05:32] LABS: ALBUMIN 2.6 g/dL (3.5-5.0); CALCIUM 8.2 mg/dL (8.8-10.2); PHOSPHORUS 4.5 mg/dL (2.7-4.5); POTASSIUM 4.6 mmol/L (3.5-5.1)
[2019-06-29 05:47] LABS: CREATININE 6.4 mg/dL (0.5-0.9)
[2019-06-29] MEDS: PROTONIX PO SCH (06:06)
[2019-06-29] MEDS: PRILOSEC PO SCH (06:06)
[2019-06-29] MEDS: NEURONTIN PO SCH ×3 (06:06→20:54)
[2019-06-29] MEDS: APRESOLINE PO SCH ×3 (06:06→20:54)
[2019-06-29] MEDS: HUMULIN R SUBQ SCH ×4 (06:48→21:17)
[2019-06-29] MEDS: COZAAR PO SCH (09:18)
[2019-06-29] MEDS: JANUVIA PO SCH (09:18)
[2019-06-29] MEDS: CULTURELLE PO SCH ×2 (09:18→20:54)
[2019-06-29] MEDS: COLACE PO SCH ×2 (09:19→20:54)
[2019-06-29] MEDS: HEPARIN SUBQ SCH ×2 (09:19→20:54)
[2019-06-29] MEDS: BYSTOLIC PO SCH (09:19)
[2019-06-29] MEDS: CLARITIN PO SCH (09:19)
[2019-06-29] MEDS: RENAGEL PO SCH ×3 (09:19→17:04)
[2019-06-29] MEDS: LANTUS INSULIN SUBQ SCH (09:27)
[2019-06-29] MEDS: BENADRYL PO PRN ×2 (09:30→21:00)
[2019-06-29] MEDS: VENTOLIN HFA INH SCH (11:08)
[2019-06-29] MEDS: NORCO-7.5 PO PRN ×2 (11:43→21:21)
[2019-06-29] MEDS: TRADJENTA PO SCH (11:44)
[2019-06-29] MEDS: ROCEPHIN 1 GM in NS 50 ML IV SCH (17:04)
--- NOTE | 2019-06-29 18:07 | PROGRESS NOTE ---
DATE: 06/29/2019 SUBJECTIVE: Patient has no major complaints. OBJECTIVE: Blood pressure 129/39, heart rate of 70, respiratory 18, temperature 98.2 degrees, and 100% on room air.Cardiovascular: Regular rate and rhythm. Pulmonary: Bilateral breath sounds. Clear to auscultation. GI: Soft, nontender, and nondistended. Bowel sounds are positive. LABORATORY: White count 5, stable creatinine. PROBLEM LIST: AV fistula. Wound dehiscence and cellulitis. She is on antibiotics. We can certainly continue them IV through dialysis or we can switch her to p.o. something on the order of doxycycline and Keflex something to that effect at the discretion of Dr. Ellsworth She grew out micrococcus, which I am not 100% sure is not a contaminant. If it is micrococcus, we may be able to get specific antibiotics based on speciation. Continue to follow. cc: Kiko Shah MD MTDD
--- NOTE | 2019-06-29 18:48 | PROVIDER PROGRESS NOTE ---
Progress Note Subjective: She voices feeling blessed. Complains of shortness of breath on exertion. No other uremic complaints. Objective: temperature 98.7, pulse 69, respirations 18, blood pressure 159/60, 02 sat 100% on room air. General: obese -[place] female sitting up to the side of the bed in no distress HEENT: normocephalic, a traumatic, pupils equal and reactive. Skin: warm. Right upper chest wall vas-cath. Dehisced surgical wound to the left upper extremity. Romayor intact on both sides with an open area in the middle with yellow tissue noted. Serosanguinous fluid draining. No dressing is in place at the moment. Neck: supple, no JVD observed. Cardiovascular: S1S2, regular rate and rhythm, no murmur gallop noted. Respiratory: clear to auscultation bilaterally in the posterior lobes. Abdomen: obese, soft, nontender and nondistended. Bowel sounds present. : non-inspected Extremities: trace lower extremity edema Labs: WBC 5.85, hemoglobin 8.0, hematocrit 26.2, platelet count 246, sodium 137, potassium 4.6, chloride 98, carbon dioxide 28, BUN 20, creatinine 6.4. Intake 630, output 3302. Impression: Chronic kidney disease stage 5D. She tolerated her routine hemodialysis treatment yesterday with a 3 L ultrafiltration. Blood pressure. Varies. Mostly in target. Will monitor for now. Fluid volume. Euvolemic on exam. Anemia. Low, but stable Does not meet transfusion criteria. Electrolytes and acid base balance. Stable, Nutrition. Adequate. Ambulation. PT in place. Wound dehiscence left upper arm fistula. Renal dosed antibiotics in place. Currently there is no dressing over site and was told that they would be redressing it after she finished her breakfast.
[2019-06-29] MEDS: PRAVACHOL PO SCH (20:54)
[2019-06-30] MEDS: APRESOLINE PO SCH ×4 (05:43→20:47)
[2019-06-30] MEDS: NEURONTIN PO SCH ×3 (05:45→20:47)
[2019-06-30 05:46] LABS: ALBUMIN 2.7 g/dL (3.5-5.0); CALCIUM 8.5 mg/dL (8.8-10.2); PHOSPHORUS 5.9 mg/dL (2.7-4.5); POTASSIUM 4.6 mmol/L (3.5-5.1)
[2019-06-30 05:51] LABS: CREATININE 7.5 mg/dL (0.5-0.9)
[2019-06-30] MEDS: PROTONIX PO SCH (05:59)
[2019-06-30] MEDS ORDERED: TIGHT: 0.2 ML/HR FOR DIALYSIS MISC PRN (06:14)
[2019-06-30] MEDS ORDERED: NS 2,000 ML MISC PRN (06:14)
[2019-06-30] MEDS ORDERED: HEPARIN IV PRN (06:14)
[2019-06-30] MEDS: HUMULIN R SUBQ SCH ×4 (06:38→20:48)
[2019-06-30] MEDS: VENTOLIN HFA INH SCH (07:33)
[2019-06-30] MEDS: JANUVIA PO SCH (08:29)
[2019-06-30] MEDS: CULTURELLE PO SCH ×2 (08:29→20:47)
[2019-06-30] MEDS: LANTUS INSULIN SUBQ SCH (08:29)
[2019-06-30] MEDS: TRADJENTA PO SCH (08:29)
[2019-06-30] MEDS: HEPARIN SUBQ SCH ×2 (08:29→20:47)
[2019-06-30] MEDS: COZAAR PO SCH (08:29)
[2019-06-30] MEDS: CLARITIN PO SCH (08:29)
[2019-06-30] MEDS: COLACE PO SCH ×2 (08:29→20:47)
[2019-06-30] MEDS: BYSTOLIC PO SCH (08:29)
[2019-06-30] MEDS: RENAGEL PO SCH ×3 (08:29→17:43)
[2019-06-30] MEDS ORDERED: CATHFLO IV ONE ×2 (12:21→12:22)
[2019-06-30] MEDS ORDERED: STERILE WATER INJ. INJ ONE (12:21)
[2019-06-30] MEDS: NORCO-7.5 PO PRN (13:46)
--- NOTE | 2019-06-30 14:14 | PROVIDER PROGRESS NOTE ---
Progress Note Subjective: she denies any uremic complaints. Objective: temperature 97.9, pulse 69, respirations 20, blood pressure 165/60, O2 sat 100% on room air. General: obese -[place] female sitting up to the side of the bed in no distress HEENT: normocephalic, atraumatic, mucous membranes moist, pupils reactive. Skin: warm. Right upper chest wall vas-cath. Dehisced surgical wound to the left upper extremity. Dressing clean and dry. Neck: supple, no JVD observed. Cardiovascular: S1S2, regular rate and rhythm, no murmur gallop noted. Respiratory: clear with diminished bases bilaterally posteriorly Abdomen: obese, soft, nontender and nondistended. Bowel sounds present. : non-inspected Extremities: trace lower extremity edema Labs: sodium 135, potassium 4.6, chloride 98, carbon dioxide 26, BUN 26, creatinine 7.5, albumin 2.7, intake 50, output zero. Impression: Chronic kidney disease stage 5D. She will have her routine hemodialysis treatment today with a 2K bath and attempt ultrafiltration to her last outpatient dry weight. Blood pressure. Varies. Will monitor for now. Fluid volume. Euvolemic on exam. Anemia. Low, but stable. Does not meet transfusion criteria. Electrolytes and acid base balance. Stable. Nutrition. Adequate. Ambulation. PT in place. Dehisced left upper arm fistula. Renal dosed antibiotics in place. Medication review. Sevelamer home dose started back.
[2019-06-30] MEDS: ROCEPHIN 1 GM in NS 50 ML IV SCH (15:20)
[2019-06-30] MEDS ORDERED: VANCOMYCIN 1 GM/NS 1 GM/250 ML IVPB IV ONE (17:00)
--- NOTE | 2019-06-30 19:47 | GENERAL SURGERY PROGRESS NOTE ---
DATE: 06/30/2019 SUBJECTIVE: Doing okay. Arm feels better. No fevers. No tachycardia. OBJECTIVE: Vital signs: Blood pressure 140/52. General: She is alert. Cardiovascular: Normal rate. Extremities: Her left arm wound is clean. I see no exposed vein. For the most part, it is intact. There is some central dehiscence. Less serous drainage noted. LABORATORY DATA: White count was normal yesterday. ASSESSMENT AND PLAN: This is a 59-year-old female left transposed brachiobasilic arteriovenous fistula. She had a seroma decompressed in the central aspect of her arm. I plan on removing her juan tomorrow. Continue local wound care. May benefit from wound VAC dressing, but otherwise there is a thrill within the fistula. Hopefully this will continue to mature. She is hyperglycemic, but her tunnel catheter is functioning normally. cc: María Ferraro MD
[2019-06-30] MEDS: PRAVACHOL PO SCH (20:47)
[2019-07-01] MEDS: HUMULIN R SUBQ SCH ×3 (06:09→20:55)
[2019-07-01] MEDS ORDERED: TIGHT: 0.2 ML/HR FOR DIALYSIS MISC PRN (06:10)
[2019-07-01] MEDS ORDERED: NS 2,000 ML MISC PRN (06:10)
[2019-07-01] MEDS ORDERED: HEPARIN IV PRN (06:10)
[2019-07-01] MEDS: APRESOLINE PO SCH ×3 (06:11→21:00)
[2019-07-01] MEDS: NEURONTIN PO SCH ×3 (06:13→21:00)
[2019-07-01] MEDS: PROTONIX PO SCH (06:13)
[2019-07-01 07:07] LABS: ALBUMIN 2.8 g/dL (3.5-5.0); CALCIUM 8.8 mg/dL (8.8-10.2); PHOSPHORUS 5.6 mg/dL (2.7-4.5); POTASSIUM 4.9 mmol/L (3.5-5.1)
[2019-07-01] MEDS: VENTOLIN HFA INH SCH (09:41)
[2019-07-01] MEDS ORDERED: DIPRIVAN 1% ONE (10:06)
[2019-07-01] MEDS ORDERED: XYLOCAINE-MPF 2% ONE (10:06)
[2019-07-01] MEDS ORDERED: FENTANYL ONE (10:06)
[2019-07-01] MEDS ORDERED: XYLOCAINE 1%/EPI 1:100,000 ONE (10:10)
[2019-07-01] MEDS ORDERED: HEPARIN ONE (10:45)
[2019-07-01] MEDS ORDERED: NS 250 ML ONE (10:46)
[2019-07-01] MEDS ORDERED: ROBINUL ONE (11:01)
[2019-07-01] MEDS ORDERED: STERILE WATER INJ. ONE (11:27)
--- NOTE | 2019-07-01 12:24 | PROGRESS NOTE ---
DATE: 07/01/2019 INTERVAL HISTORY: No acute events overnight. Ms. Villa wanted more information about the procedure she was undergoing and she wanted to talk to her sister about it. I discussed with the unit operator about calling her sister so that Ms. Villa can talk with her. Otherwise, Ms. Villa denies any chest pain, shortness of breath, nausea, vomiting, abdominal pain. She is having good bowel movements. We discussed about her wound on the left and possible debridement. We also discussed about her need for dialysis. VITALS: Currently, temperature 98.5 degrees, pulse 71, respiratory rate 21, blood pressure 148/99, saturating 95% room air. PHYSICAL EXAMINATION: Morbidly obese. Not in acute distress. Oral cavity is moist. Air entry bilaterally equal. No wheeze, rhonchi, or crackles. Cardiovascular: S1, S2 normal. No murmur, rub, or gallop. She has a left-sided arm AV fistula with some wound dehiscence and there are juan. There is no erythema around it. There is no pus-like discharge. Abdomen: Soft, nontender. She has bilateral lower extremity edema. She is alert. She is oriented. She is legally blind, though she does have perception to light in both eyes. LABS: No CBC today. BMP suggestive of BUN of 29, creatinine of 8, blood glucose 65 and I asked the nurse to recheck it immediately and it was 88. MICROBIOLOGY: Her stool occult blood test on admission was positive. However, her anemia seems chronic and I would advise her outpatient GI followup. ASSESSMENT AND PLAN: 1. Wound dehiscence of her left arm arteriovenous fistula. General surgical team on board. Her wound culture is only growing micrococcus which could be part of normal wily. My plan is to change her intravenous antibiotics to oral for a total of 5 to 7 days at the time of discharge. 2. Chronic kidney disease stage 5. She is on Friday, Friday, Friday hemodialysis through a right internal jugular line until her fistula matures. Nephrology team on board. 3. History of Uncontrolled insulin-dependent diabetes mellitus and diabetic peripheral neuropathy. Continue her insulin with some dose adjustment and decreasing the glargine dose. I will stop her DPP.-4 inhibitors since she is already on insulin. Also, continue gabapentin for her diabetic peripheral neuropathy at a decreased dose. 4. Others. Continue her home medications including losartan, nebivolol, and nifedipine for essential hypertension; pravastatin for hyperlipidemia; sevelamer for hyperphosphatemia; dicyclomine as needed for abdominal cramps. 5. Disposition. Monitor patient inside the hospital as I await post surgery recommendations. Plan of care discussed with the patient. All of her questions have been answered. cc: Trae Shay MD MTDD
[2019-07-01] MEDS: RENAGEL PO SCH ×3 (13:47→18:53)
[2019-07-01] MEDS: COZAAR PO SCH (13:51)
[2019-07-01] MEDS: CLARITIN PO SCH (13:52)
[2019-07-01] MEDS: COLACE PO SCH ×2 (13:52→21:00)
[2019-07-01] MEDS: BYSTOLIC PO SCH (13:53)
[2019-07-01] MEDS: HEPARIN SUBQ SCH ×2 (13:53→20:59)
[2019-07-01] MEDS: CULTURELLE PO SCH ×2 (13:53→21:00)
[2019-07-01] MEDS: LANTUS INSULIN SUBQ SCH (14:10)
--- NOTE | 2019-07-01 15:13 | PROVIDER PROGRESS NOTE ---
Progress Note Subjective: she denies any complaints. Shes lying in bed resting and has remained NPO since midnight. Objective: temperature 98.5, pulse 71, respirations 21, blood pressure 148/99, O2 sat 100% on room air. General: obese -[place] female sitting up to the side of the bed in no distress HEENT: normocephalic, atraumatic, mucous membranes moist, pupils reactive. Skin: warm. Right upper chest wall vas-cath. Dehisced surgical wound to the left upper extremity. Dressing is half off. Neck: supple, no JVD observed. Cardiovascular: S1S2, regular rate and rhythm, no murmur gallop noted. Respiratory: clear with diminished bases bilaterally posteriorly Abdomen: obese, soft, nontender and nondistended. Bowel sounds present. : non-inspected Extremities: trace lower extremity edema Labs: sodium 134, potassium 4.9, chloride 99, carbon dioxide 23, BUN 29, creatinine 8.0, phosphorus 5.6, albumin 2.8. Intake 540, output 200. Impression: Chronic kidney disease stage 5D. She was scheduled for routine hemodialysis treatment yesterday but the staff could not get her catheter to run. She plans on having her tunnel catheter replaced today as well as revision of her fistula. When placement of the new tunnel catheter has been verified we will plan for hemodialysis. Blood pressure. Varies. Will monitor for now. Fluid volume. Euvolemic on exam. Anemia. Low, but stable. Does not meet transfusion criteria. Electrolytes and acid base balance. Stable. Nutrition. Adequate. Ambulation. PT in place. Medication review. Vancomycin scheduled for this evening.
[2019-07-01] MEDS ORDERED: VANCOMYCIN 1 GM/NS 1 GM/250 ML IVPB IV ONE (17:00)
[2019-07-01] MEDS: ROCEPHIN 1 GM in NS 50 ML IV SCH (18:57)
[2019-07-01] MEDS: PRAVACHOL PO SCH (21:00)
[2019-07-01] MEDS: NORCO-7.5 PO PRN (21:00)
--- NOTE | 2019-07-01 21:34 | OPERATIVE NOTE ---
PROCEDURE DATE: 07/01/2019 PREOPERATIVE DIAGNOSES: 1. End-stage renal disease. 2. Left upper arm seroma. POSTOPERATIVE DIAGNOSES: 1. End-stage renal disease. 2. Left upper arm seroma. 3. Malfunctioning hemodialysis catheter. PROCEDURES: 1. Over the wire exchange of right internal jugular vein hemodialysis catheter with a 24 cm tip to curve [employer] catheter. 2. Exploration of left upper extremity wound with drainage of seroma removal juan. ESTIMATED BLOOD LOSS: 10 mL. SPECIMENS: None. ANESTHESIA: General. INDICATIONS: A 59-year-old female who had a left upper extremity arteriovenous fistula placed. She developed wound dehiscence and seroma. Her she also has had malfunction of her hemodialysis catheter. OPERATIVE FINDINGS: Good position of the catheter in the superior vena cava-atrial junction with no kinking and no pneumothorax on the right. On the left, there is central dehiscence of her wound. There is no exposed vein graft and there was serous fluid noted and tracking along the incision that was drained completely, quite a large volume. Her juan were removed. There was no purulence. OPERATIVE NOTE: Risks, benefits and alternatives were discussed with the patient and she consented to the procedure. The proper surgery site was confirmed and marked. She was taken to the operating room placed supine position. General anesthesia induced. She was on scheduled antibiotics. Her neck was prepped with Betadine and draped in usual fashion. A time-out. We gained wire access, confirmed with fluoroscopy. At this point, we dissected out the cuff, removed her old catheter that was placed at an outside facility. It was well incorporated and the 24 cm tip to cuff catheter was advanced and confirmed to be in good position. We withdrew the wire. We secured the cuff below the skin with 4-0 Monocryl and secured with 2 nylon. The ports withdrew blood and flushed without resistance with heparinized saline. Dressing was applied. She tolerated well. There were no complications. cc: María Ferraro MD
[2019-07-02] MEDS: PROTONIX PO SCH ×2 (06:08→20:35)
[2019-07-02] MEDS: HUMULIN R SUBQ SCH ×6 (06:08→20:36)
[2019-07-02] MEDS: NEURONTIN PO SCH ×3 (06:08→20:35)
[2019-07-02] MEDS: APRESOLINE PO SCH ×3 (06:08→20:35)
[2019-07-02] MEDS: VENTOLIN HFA INH SCH (07:56)
[2019-07-02] MEDS: NORCO-7.5 PO PRN ×2 (08:02→15:56)
[2019-07-02] MEDS: CULTURELLE PO SCH ×2 (08:03→20:35)
[2019-07-02] MEDS: RENAGEL PO SCH ×3 (08:03→16:15)
[2019-07-02] MEDS: COLACE PO SCH ×2 (08:03→20:35)
[2019-07-02] MEDS: HEPARIN SUBQ SCH (08:03)
[2019-07-02] MEDS: BYSTOLIC PO SCH (08:03)
[2019-07-02] MEDS: CLARITIN PO SCH (08:04)
[2019-07-02] MEDS: LANTUS INSULIN SUBQ SCH (08:04)
[2019-07-02] MEDS: COZAAR PO SCH (08:04)
[2019-07-02 08:39] LABS: BASO# 0.03 X1000 (0.0-0.2); BASO% 0.5 % (0.0-0.8); EOS# 0.16 X1000 (0.0-0.7); EOS% 2.5 % (0.0-10.0); HEMATOCRIT 28.6 % (37.0-47.0); HEMOGLOBIN 8.6 g/dL (12.0-16.0); LYMPH# 1.84 X1000 (1.2-3.4); LYMPH% 28.5 % (20.5-51.1); MCH 28.3 PG (27-31); MCHC 30.1 g/dL (33-37); MCV 94.1 FL (81-99); MONO# 0.48 X1000 (0.11-0.59); MONO% 7.4 % (1.7-9.3); MPV 9.2 FL (7.4-10.4); NEUT# 3.95 X1000 (1.4-6.5); NEUT% 61.1 % (42.2-75.2); PLT 273 X1000 (130-400); RBC 3.04 XMIL (4.2-5.4); RDW 14.8 % (11.5-14.5); WBC 6.46 X1000 (4.8-10.8)
[2019-07-02 09:13] LABS: CALCIUM 8.7 mg/dL (8.8-10.2); CREATININE 5.9 mg/dL (0.5-0.9); PHOSPHORUS 3.7 mg/dL (2.7-4.5); POTASSIUM 4.7 mmol/L (3.5-5.1)
[2019-07-02 13:40] LABS: HEPATITIS PROFILE ACUTE SEE COMMENTS
--- NOTE | 2019-07-02 14:37 | PROGRESS NOTE ---
DATE: 07/02/2019 INTERVAL HISTORY: Ms. Villa underwent over the wire exchange of right internal jugular vein hemodialysis catheter with our 24 cm tip. She also had exploration of left upper extremity wound with drainage of seroma with removal of juan. SUBJECTIVE: Ms Villa denies any new complaints. We discussed about controlling her blood pressure, diabetes, her left arm fistula. I answered all of her question. She was also requesting me that I should get in touch with her sister. OBJECTIVE: Vital signs: Currently temperature of 97.9 degrees, pulse 66, respiratory 18, blood pressure 146/50, saturating 100% room air. General: Ms. Villa is not in any acute distress. She has morbid obesity. HEENT: Oral cavity is moist. Lungs: Air entry bilaterally equal. No wheeze, rhonchi, crackles. Cardiovascular: S1, S2 normal. No murmur, rub or gallop. Chest: She has a right-sided chest tunneled dialysis catheter. Left arm AV fistula which has a dressing. Abdomen: Obese, soft, nontender. Extremities: She has bilateral lower extremity edema. Neurologic: She is alert. 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 She is sitting at the edge of the bed. LABORATORY DATA: Suggestive of hemoglobin of 8.6, platelet of 273,000. Her blood glucoses have been largely within acceptable range. MICROBIOLOGY: No new data. IMAGING: No new imaging. ASSESSMENT AND PLAN: 1. Wound dehiscence of left arm arteriovenous fistula. General surgical team on board. Her seroma has been drained and her juan have been removed. I will continue clindamycin for a total of 5 days after tomorrow and stop intravenous antibiotics. 2. Chronic kidney disease stage V, on Friday, Friday, Friday hemodialysis through right internal jugular dialysis catheter. She would likely receive another session of dialysis tomorrow. Nephrology team on board. Her dialysis catheter was exchange on 07/01/2019. 3. Recent diagnosis of dialysis catheter-associated right atrial thrombus, also superficial gastric and duodenal ulcer in May 2019. I will resume her Eliquis at current dose of 5 mg b.i.d. as well as keep her on pantoprazole orally b.i.d. 4. History of uncontrolled insulin-dependent diabetes mellitus and diabetic peripheral neuropathy. Continue current dose of glargine and gabapentin for peripheral neuropathy. 5. Others. Continue losartan, Nebivolol and hydralazine for essential hypertension; pravastatin for hyperlipidemia; sevelamer for hyperphosphatemia; dicyclomine as needed for abdominal cramps. DISPOSITION: Planning discharge in the next 24 hours. I called the patient's sister. I discussed with her about the patient's multiple medical conditions and guarded prognosis. I discussed with her about her need for anticoagulation and GI ulcers and that she needs close medical follow-up and answered all of her questions. cc: rTae Shay MD MTDD
[2019-07-02] MEDS: ROCEPHIN 1 GM in NS 50 ML IV SCH (16:15)
--- NOTE | 2019-07-02 16:19 | DISCHARGE SUMMARY ---
ADMISSION DATE: 06/25/2019 DISCHARGE DATE: 07/03/2019 [facility] DISCHARGE CONDITION: Hemodynamically stable. Her right-sided chest dialysis catheter is functioning fine. She is alert. Her left arm AV fistula is dressed. DISCHARGE DIAGNOSES: 1. Wound dehiscence of her left arm arteriovenous fistula due to micrococcus with some mild cellulitis. 2. Chronic kidney disease stage V, on intermittent hemodialysis Friday, Friday, Friday. 3. 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 4. Uncontrolled insulin-dependent diabetes mellitus with episodes of hyper and hypoglycemia. 5. Uncontrolled essential hypertension. OTHER DIAGNOSES: 1. Recent history of right-sided atrial thrombus associated with dialysis catheter. 2. Recent episode of esophagitis, multiple erosions in the gastric antrum, and 5 to 9 mm ulcers in the duodenal bulb and second part of duodenum. 3. Morbid obesity. 4. History of legal blindness. 5. Diabetic neuropathy PROCEDURES DURING HOSPITAL ADMISSION: On 06/28/2019, patient underwent over the wire exchange of right internal jugular vein hemodialysis catheter and exploration of left upper extremity wound with drainage of seroma with removal of juan, which she tolerated well. DISCHARGE MEDICATIONS: 1. Hydralazine 100 mg every 8 hours. 2. Insulin glargine 45 units in the morning time. 3. Dicyclomine 10 mg every 12 hours as needed for abdominal cramps. 4. Docusate 100 mg b.i.d. 5. Apixaban 5 mg b.i.d. 6. Loratadine 10 mg daily. 7. Losartan 100 mg daily. 8. Pravastatin 40 mg at nighttime. 9. Albuterol sulfate inhaler 1 puff inhaled daily. 10. Lactobacillus 1 tablet b.i.d. 11. Pantoprazole 40 mg b.i.d. 12. Sevelamer 800 mg every 8 hours. 13. Torsemide 20 mg daily. 15. Gabapentin 100 mg every 8 hours. 16. Nebivolol 2.5 mg daily. 17. Hydrocodone acetaminophen 7.5 mg one tablet every 6 hours as needed, 15 tablets have been prescribed. VITALS: At the time of current dictation, temperature 97.9 degrees pulse 63, respiratory rate 18, blood pressure 146/50, saturating 100% on room air. PHYSICAL EXAMINATION: General: At the time of discharge currently, Ms. Villa is not in acute distress. She is a morbidly obese lady. Oral cavity: Moist. Lungs: Air entry bilaterally equal. No wheeze, rhonchi, crackles. Cardiovascular: S1, S2 normal. No murmur or gallop. She has a right-sided tunneled dialysis catheter. The site appears nontender. She has left arm AV fistula. The superficial wound has been dressed. She is having some tenderness over there. Abdomen: She has massive abdominal obesity. Extremities: She has bilateral lower extremity edema. Neurologic: She is legally blind. She is alert, answering all questions appropriately. LABS: WBC 6.4, hemoglobin 8.6, platelet 273. Sodium 135, potassium 4.7. BUN 18, creatinine 5.9, blood glucose 246. Hepatitis panel did not have any hepatitis. MICROBIOLOGY: Wound culture from the left arm is growing micrococcus. Stool occult blood test has been positive on admission. IMAGING: No new images during hospital admission. HOSPITAL COURSE SUMMARY: Ms. Villa is a 59-year-old lady with recent hospital admission for Clostridium difficile colitis, multiple duodenal ulcers, right atrial thrombus, who has chronic kidney disease stage V and on Friday, Friday, Friday hemodialysis right chest catheter. She had an AV fistula placed by the surgery team on 05/25/2019, and the area has been painful. It has not been used. However, her pain has been ongoing for about 10 days prior to presentation with some increasing swelling and drainage of serosanguineous fluid. She did not have any fever, so she decided to come to the hospital. In the emergency room she was found to be hemodynamically stable, however her left AV fistula wound was showing dehiscence, and so she was advised to be admitted inside the hospital. There was some erythema around the wound. It was thought that she probably had mild cellulitis around it, so she was started on broad-spectrum intravenous antibiotics which she has been tolerating well. She underwent procedure on 06/28/2019 where the juan were removed and her seroma was drained, which she tolerated well. At the time of dictation, she has completed almost 7 days of intravenous antibiotics, and the plan was to stop antibiotics at the time of discharge. While inside the hospital, she was also receiving intermittent hemodialysis with right chest hemodialysis catheter. Previously, there was thrombus associated with the catheter. However, in any case, surgical team decided to change the catheter over guidewire, which she tolerated well. Her Eliquis was unfortunately held at that time since admission, and she was resumed on Eliquis on 07/02/2019. Some adjustments were made into her insulin regimen for diabetes, and currently her blood sugars are within acceptable range. FOLLOW-UP INSTRUCTION: Patient should follow up with: 1. Dr. Ferraro within 7 to 10 days time for left arm AV fistula wound evaluation. 2. She should follow up with her dialysis sterilizer operator to get intermittent hemodialysis. 3. Blood glucose needs to be closely monitored for her insulin-dependent diabetes mellitus. 4. Her hemoglobin needs to be closely monitor. She already has superficial duodenal ulcers, positive fecal occult blood test, and she is needing anticoagulation because of right atrial thrombus. TIME SPENT: More than 30 minutes time was spent preparing discharge summary. cc: Trae Shay MD MTDD
[2019-07-02] MEDS ORDERED: ELIQUIS PO ONE (16:21)
--- NOTE | 2019-07-02 20:12 | NEPHROLOGY PROGRESS NOTE ---
DATE: 07/02/2019 SUBJECTIVE: She is lying in bed, not having any particular complaints today. Later, observed sitting up on the side of the bed eating without difficulty. She does still have left arm pain. OBJECTIVE: Blood pressure 136/46, heart rate 73, respiration 18, temperature 99.2 degrees. No acute distress.Skin: Warm and dry. Neck veins are not distended. Heart: Regular. No gallops. Lungs: Equal. No crackles. Abdomen: Benign. Extremities: No edema, except left upper extremity. IMPRESSION/PLAN: 1. Chronic kidney disease 5D. Her routine dialysis day is today, but she was treated yesterday. Volume status and electrolytes are acceptable, so we will withhold dialysis today and treat tomorrow given that she will still be an inpatient. We will dialyze her early in the morning to facilitate discharge thereafter. 2. Anemia. Below target, but stable. No changes. cc: Russell Quinonez MD
[2019-07-02] MEDS: ELIQUIS PO SCH (20:35)
[2019-07-02] MEDS: PRAVACHOL PO SCH (20:35)
[2019-07-03] MEDS: NORCO-7.5 PO PRN ×2 (00:21→11:49)
[2019-07-03] MEDS: APRESOLINE PO SCH (05:53)
[2019-07-03] MEDS: NEURONTIN PO SCH (05:53)
[2019-07-03 06:10] LABS: ALBUMIN 2.6 g/dL (3.5-5.0); CALCIUM 8.5 mg/dL (8.8-10.2); PHOSPHORUS 5.3 mg/dL (2.7-4.5)
[2019-07-03 06:30] LABS: CREATININE 7.4 mg/dL (0.5-0.9)
[2019-07-03] MEDS: HUMULIN R SUBQ SCH (06:42)
[2019-07-03] MEDS ORDERED: HEPARIN IV PRN (07:06)
[2019-07-03] MEDS ORDERED: NS 2,000 ML MISC PRN (07:06)
[2019-07-03] MEDS: VENTOLIN HFA INH SCH (07:52)
[2019-07-03 11:50] VITALS: BP 136/37
[2019-07-03] MEDS: COZAAR PO SCH (11:50)
[2019-07-03] MEDS: ELIQUIS PO SCH (11:50)
[2019-07-03] MEDS: COLACE PO SCH (11:50)
[2019-07-03] MEDS: LANTUS INSULIN SUBQ SCH (11:50)
[2019-07-03] MEDS: RENAGEL PO SCH ×2 (11:50→11:56)
[2019-07-03] MEDS: CLARITIN PO SCH (11:51)
[2019-07-03] MEDS: CULTURELLE PO SCH (11:51)
[2019-07-03] MEDS: BYSTOLIC PO SCH (11:51)
[2019-07-03] MEDS: PROTONIX PO SCH (11:56)
--- NOTE | 2019-07-03 11:56 | DISCHARGE SUMMARY ---
ADMISSION DATE: 06/25/2019 DISCHARGE DATE: 07/03/2019 ADDENDUM: INTERVAL HISTORY: Ms. Villa did not have any acute overnight events. SUBJECTIVE: Ms. Villa denies new complaints. She denies chest pain, shortness of breath or cough. She has been complaining of left arm pain and I discussed with her that she would need frequent wound dressing as per surgical team's recommendations. We discussed about diabetes, blood pressure control, weight reduction. VITALS: Temperature 99 degrees, pulse 70, respiratory 18, blood pressure 118/42 saturating 98% on room air. PHYSICAL EXAMINATION: Ms. Villa does not appear in acute distress. She is morbidly obese. Chest: She has a right-sided chest dialysis catheter. Lungs: Air entry bilaterally equal. No wheeze or crackles S1-S2 normal. No murmur or gallop. Abdomen: Obese, soft, nontender. She has bilateral lower extremity edema. Her left arm is dressed at the site of AV fistula. LABS: No CBC today. BMP suggestive of sodium of 131, chloride 95, BUN 25, creatinine 7.4, blood glucose 215. No new microbiological or imaging data. ASSESSMENT AND PLAN: 1. Left AV fistula wound dehiscences due to seroma and mild cellulitis status post drainage in the operating room on 07/01/2019. Continue local wound dressing and outpatient surgery followup. 2. Chronic kidney disease stage 5, on Friday, Friday, Friday hemodialysis through right-sided internal jugular dialysis catheter. 3. Recent diagnosis of dialysis catheter associated with right atrial thrombus. She has been restarted on her Eliquis. 4. Recent diagnosis of superficial gastric erosions and multiple duodenal ulcers in May 2019. Continue pantoprazole b.i.d. 5. History of uncontrolled insulin-dependent diabetes mellitus and diabetic peripheral neuropathy. Continue current dose of glargine. 6. Other: Continue losartan, nebivolol, and hydralazine for essential hypertension. DISPOSITION: After dialysis session today, the patient should be able to be discharged back to [facility]. Plan of care discussed with the patient. Yesterday, I called patient's sister and discussed with her about plan of care and had answered all of her questions. cc: MD MADISON Ortega
== END 2019-07-03 12:33 | DRG 907 ==
LOC: SUPCPDRO → ED 11:10 → EDIPHOLD 18:19 → SUATTDRO 18:19 → 4N 21:21 → 1N 06-28 16:01
PROVIDERS: ATTEND Internal Medicine
PROC: [UNRECOGNIZED PROCEDURE] (2019-07-01 10:48)

== ENCOUNTER 2019-09-05 09:23 | Inpatient (IN) ==
[2019-09-05] MEDS ORDERED: NS 1,000 ML ONE (09:34)
[2019-09-05] MEDS ORDERED: ATIVAN ONE (09:38)
[2019-09-05] MEDS ORDERED: QUELICIN ONE (09:39)
[2019-09-05] MEDS ORDERED: AMIDATE ONE (09:42)
[2019-09-05] MEDS ORDERED: ATIVAN IV ONE (09:48)
[2019-09-05] MEDS ORDERED: QUELICIN IV ONE (09:48)
[2019-09-05] MEDS ORDERED: AMIDATE IV ONE (09:49)
[2019-09-05] MEDS ORDERED: DIPRIVAN 1% 1,000 MG/100 ML BOTTLE ONE (09:59)
--- NOTE | 2019-09-05 10:34 | Diag Imaging Result Doc PS360 ---
EXAM: CHEST-PORTABLE INDICATION: Tube placement TECHNIQUE: One view COMPARISON: 06/04/2019 FINDINGS: The ET tube projects over the trachea and above the omero at about the T3 level. The NG tube projects below the diaphragm and is assumed to be in the lumen of the stomach in expected position. Inspiration is suboptimal. The lungs are grossly clear. There is no discrete pleural fluid collection or pneumothorax. The cardiomediastinal silhouette and central vasculature are grossly unremarkable. IMPRESSION: Recent placement of ET tube and NG tube as described above and low lung volumes. No definite acute chest pathology by plain radiograph, otherwise. Electronically signed by Nixon Kearney 09/05/2019 10:31 AM
[2019-09-05] MEDS: DIPRIVAN 1% 1,000 MG/100 ML BOTTLE IV SCH ×6 (11:06→23:37)
--- NOTE | 2019-09-05 11:15 | Diag Imaging Result Doc PS360 ---
EXAM: CT HEAD W/O CONTRAST INDICATION: SEIZURE LIKE ACTIVITY/CVA TECHNIQUE: This exam was performed using automated exposure control, adjustment of mA or kV according to patient size, and/or use of iterative reconstruction technique. COMPARISON: None. FINDINGS: There is mild patchy low attenuation in the left parietal periventricular and subcortical white matter suggesting mild microangiopathy. There is a tiny round low dense focus associated with the thalamus on the right. This may be chronic. A subacute lacunar infarct cannot completely be excluded with no prior studies available for comparison. There is no other definite acute infarct given the limited sensitivity of CT versus MRI. There is no discrete intracranial mass, mass effect, or intracranial hemorrhage. The surrounding soft tissues and bony structures are essentially unremarkable. IMPRESSION: Suggestion of minimal left parietal white matter microangiopathy and a tiny round focus of low attenuation in the thalamus on the right that certainly may be chronic. However, a tiny subacute lacunar infarct would be difficult to exclude with no prior studies available for comparison. Electronically signed by Nixon Kearney 09/05/2019 11:12 AM
[2019-09-05 11:39] LABS: ALB/GLOB RATIO 1.4; ALBUMIN 3.7 g/dL (3.5-5.0); CALCIUM 9.1 mg/dL (8.8-10.2); POTASSIUM 3.4 mmol/L (3.5-5.1); TOTAL BILIRUBIN 0.21 mg/dL (0.20-1.00); TOTAL PROTEIN 6.3 g/dL (6.3-8.3)
[2019-09-05 11:43] LABS: CREATININE 6.1 mg/dL (0.5-0.9)
[2019-09-05 11:55] LABS: ALLEN TEST YES; BE -0.8 mmoll (-3.0-3.0); BLOOD TYPE ARTERIAL; HCO3-(ACT) 24.3 mmoll (20.0-26.0); METHB 0.8 % (0.0-1.5); O2(CT) 21.3 mL/dL (15.0-23.0); O2HB 97.4 % (95.0-99.0); PCO2(98.6) 44 mmHg (35-45); PO2(98.6) 518 mmHg (60-100); SAMPLE BLOOD; SAO2 99.3 % (95.0-100.0); SRATE 16 BPM; THB 14.5 g/dL (11.5-17.4); TVOL 500 mL; pH(98.6) 7.36 (7.35-7.45)
[2019-09-05 11:56] LABS: MODALITY VENTILATOR
[2019-09-05 12:04] LABS: BASO# 0.04 X1000 (0.0-0.2); BASO% 0.7 % (0.0-0.8); EOS% 1.8 % (0.0-10.0); HEMATOCRIT 42.1 % (37.0-47.0); HEMOGLOBIN 13.9 g/dL (12.0-16.0); IMM GRAN# 0.03 X1000 (0.0-0.04); IMM GRAN% 0.5 % (0.0-0.5); LYMPH# 1.43 X1000 (1.2-3.4); LYMPH% 25.6 % (20.5-51.1); MCH 27.3 PG (27-31); MCV 82.7 FL (81-99); MONO% 7.2 % (1.7-9.3); MPV 11.5 FL (7.4-10.4); NEUT# 3.59 X1000 (1.4-6.5); NEUT% 64.2 % (42.2-75.2); PLT 178 X1000 (130-400); RBC 5.09 XMIL (4.2-5.4); RDW 14.2 % (11.5-14.5); WBC 5.59 X1000 (4.8-10.8)
[2019-09-05 12:08] LABS: URINE SOURCE CATH
[2019-09-05 12:12] LABS: BILIRUBIN URINE NEGATIVE (NEGATIVE); BLOOD URINE SMALL (NEGATIVE); COLOR YELLOW; GLUCOSE URINE >1000 mg/dL (NEGATIVE); KETONE URINE NEGATIVE (NEGATIVE); LEUKOCYTES URINE NEGATIVE (NEGATIVE); NITRITE URINE NEGATIVE (NEGATIVE); PH URINE 6.5; PROTEIN URINE 600 mg/dL (NEGATIVE); SP GRAVITY URINE 1.014; TURBIDITY URINE CLEAR (CLEAR); UROBILINOGEN URINE NORMAL (NORMAL)
[2019-09-05 12:13] LABS: UR EPITHELIAL CELLS <10 /HPF (<10); URINE BACTERIA NEGATIVE /HPF; URINE RBC <10 /HPF (<10); URINE WBC <10 /HPF (<10)
[2019-09-05] MEDS ORDERED: NS 1,000 ML IV ONE ×3 (12:14→23:24)
[2019-09-05 12:27] LABS: INR 1.06; PROTIME 13.9 Seconds (11.0-16.0)
[2019-09-05 12:28] LABS: PTT 36.8 Seconds (22.3-41.8)
--- NOTE | 2019-09-05 13:25 | Diag Imaging Result Doc PS360 ---
EXAM: CHEST/ABD TUBE PLACEMENT INDICATION: Re-insertion of OG tube TECHNIQUE: One view COMPARISON: 09/05/2019 FINDINGS: The newly reinserted OG tube is identified. The tip projects well below the diaphragm and is assumed to be in the lumen of the stomach in expected position. There is gaseous distention of the stomach. Limited views of the lung bases are approximately stable. IMPRESSION: OG tube tip below the diaphragm in the expected position. Electronically signed by Nixon Kearney 09/05/2019 1:23 PM
[2019-09-05 13:38] LABS: UR AMPHETAMINES MT NONE DETECTED (NONE DETECT); UR BARBITUATES MT NONE DETECTED (NONE DETECT); UR BENZODIAZ MT NONE DETECTED (NONE DETECT); UR CANNABIS MEDTOX NONE DETECTED (NONE DETECT); UR COCAINE MT NONE DETECTED (NONE DETECT); UR METHADONE MEDTOX NONE DETECTED (NONE DETECT); UR OPIATES MT PRESUMPTIVE POS (NONE DETECT); UR OXYCODONE MEDTOX NONE DETECTED (NONE DETECT); UR PCP MEDTOX NONE DETECTED (NONE DETECT)
[2019-09-05] MEDS ORDERED: NIPRIDE 100 MG in D5W 250 ML IV SCH (14:00)
--- NOTE | 2019-09-05 14:02 | PROVIDER DOCUMENTATION ---
This chart was entered by Radha Kearney Scribe, acting as scribe for Vidal Philippe DO. HPI-Neurological Disorder - General Stated Complaint: SEIZURE LIKE ACTIVITY/ POSS CVA Time Seen by Provider: 09/05/19 09:51 Source: RN/MD Unable to obtain history due to:: altered Allergies/Adverse Reactions: Patient Allergies Allergy/AdvReac Type Severity Reaction Status Date / Time Latex, Natural Rubber Allergy ITCHING Verified 06/25/19 12:03 Home Medications: Home Medication List Medication Instructions Recorded Confirmed Last Taken Type Albuterol Sulfate [Proair 1 puff INH DAILY 06/25/19 06/25/19 Unknown History Digihaler] Apixaban [Eliquis] 5 mg PO BID 06/25/19 09/05/19 06/25/19 History Pravastatin Sodium 40 mg PO HS 06/25/19 09/05/19 Unknown History Sevelamer HCl 800 mg PO Q8H 06/25/19 09/05/19 Unknown History Torsemide 20 mg PO DAILY PRN PRN 06/25/19 09/05/19 Unknown History Hydrocodone/Acetaminophen 1 tab PO Q6H PRN #15 tab 07/02/19 09/05/19 Unknown Rx [Hydrocodone-Acetamin 7.5-325] Pantoprazole [Protonix] 40 mg PO BID #0 07/02/19 09/05/19 Unknown Rx Clonidine [Catapres] 0.2 mg PO BID 09/05/19 09/05/19 Unknown History Insulin Glargine,Hum.rec.anlog 50 unit SQ HS 09/05/19 09/05/19 Unknown History [Lantus Solostar] Linagliptin [Tradjenta] 5 mg PO DAILY 09/05/19 09/05/19 Unknown History Meclizine [Antivert] 25 mg PO TID 09/05/19 09/05/19 Unknown History Montelukast [Singulair] 10 mg PO DAILY 09/05/19 09/05/19 Unknown History Nebivolol HCl [Bystolic] 2.5 mg PO DAILY 09/05/19 09/05/19 Unknown History - History of Present Illness-Neuro Nature of Presenting Problem: 59 yof presents to er w/cc ems arrival for intractable seizures. pt refused transport tx yest for garcía. pt is unresponsive in room. pt is morbidly obese. - Seizure Episode details: reports: unknown duration, unknown number Review of Systems - Adult - REVIEW OF SYSTEMS - ADULT Constitutional: reports: no symptoms reported. denies: chills, fever, fatique Eyes: reports: no symptoms reported Ears, Nose, Mouth & Throat: reports: no symptoms reported Cardiovascular: reports: no symptoms reported Respiratory: reports: no symptoms reported Gastrointestinal: reports: no symptoms reported Genitourinary: reports: no symptoms reported Musculoskeletal: reports: no symptoms reported Integumentary: reports: no symptoms reported Neurological: reports: see HPI, headache/migraines (reports garcía yest and refused ems transport), seizure, other (unresponsive). denies: dizziness/vertigo, loss of balance Psychiatric: reports: no symptoms reported Endocrine: reports: no symptoms reported Hematologic/Lymphatic: reports: no symptoms reported Allergic/Immunologic: reports: no symptoms reported All Other Systems: Reviewed and Negative Past History - Adult - PAST MEDICAL HISTORY-ADULT Review of Records: reports: Nursing Assessment Review, Medications Reviewed, Social history reviewed & non-contributory. Major Childhood Illnesses: reports: denies history Cardiovascular: reports: HTN, hyperlipidemia Respiratory: reports: sleep apnea Gastrointestinal: reports: denies history Obstetrical/Gynecological: reports: denies history Genitourinary: reports: dialysis (MWF), ESRD, kidney disease Musculoskeletal: reports: denies history Neurological: reports: CVA Endocrine/Immune: reports: Diabetes Other Conditions: reports: blindness - PRIOR SURGERIES/PROCEDURES Surgical/Procedure History: reports: back/neck, other (fistula) - IMMUNIZATION STATUS Childhood Immunizations: See Nurse Assessment Flu Vaccine: See Nurse Assessment - FAMILY HISTORY Family History: reviewed, not pertinent - SOCIAL HISTORY Smoking: cigarettes, less than 1 pack/day Substance Use: none/never Physical Exam- Neurological - Physical Exam-Neuro Initial Vital Signs Reviewed: Yes General Appearance: severe distress, obese, other (unresponsive, actively seizing). negative: appears well, alert, no apparent distress Eye Exam: bilateral eye: other (L pupil is irregular, rt pupil is dilated ) HENMT: moist mucous membranes (pt is foaming at mouth) Head Injury: no evidence of injury Neck: non-tender, full range of motion, supple, normal inspection Respiratory: chest non-tender, lungs clear, no pleuratic chest pain, no respiratory distress, no accessory muscle use, decreased breath sounds (coarse breath sounds), other (tachypnic). negative: normal breath sounds Cardiovascular: normal peripheral pulses, no edema, no gallop, no JVD, no murmur , tachycardia, other (pt has port rt upper chest). negative: regular rate, rhythm, JVD, bradycardia, extra beats, friction rub, irregularly irregular Abdominal Exam: non tender, soft Extremity: normal range of motion, non-tender, normal inspection [employer] Exam: abnormal pupil position (L is irregular, rt is dilated), other. negative: normal hearing, normal speech, PERRL Neurologic: abnormal [employer] II-XII (pt unresponsive). negative: [employer] II-XII nml as tested, grossly normal, no motor/sensory deficits Integumentary: normal color, normal turgor, warm/dry Psych/Mental Status: disoriented x 3. negative: normal mood/affect, normal thought content, normal thought process, oriented x 3 - Glascow Coma Scale Best Eye Response: (1) no response Best Verbal Response: (1) no verbal response Best Motor Response: (1) no motor response Total Glascow Score: 3 Progress - PLAN OF CARE/RESULTS Progress/Plan/Lab Results: Vital Signs - 8 hr 09/05/19 10:01 Temperature 99.5 F Pulse Rate 89 Respiratory Rate 30 H Blood Pressure 178/89 O2 Sat by Pulse Oximetry 100 Laboratory Results - last 24 hr 09/05/19 09/05/19 09/05/19 10:16 11:00 11:00 WBC RBC Hgb Hct MCV MCH MCHC RDW Std Deviation Plt Count MPV Immature Gran % (Auto) Neut % (Auto) Lymph % (Auto) [place] % (Auto) Eos % (Auto) Baso % (Auto) Immature Gran # (Auto) Neut # (Auto) Lymph # (Auto) [place] # (Auto) Eos # (Auto) Baso # (Auto) PT INR PTT (Actin FS) Specimen Type Sample Site pH pCO2 pO2 HCO3 Base Excess Oxyhemoglobin ABG O2 Sat (Calculated) ABG O2 Saturation ABG Carboxyhemoglobin ABG Methemoglobin Mauricio Test A-a O2 Difference Total Hemoglobin Lactate Blood Gas Modality Spontaneous Rate FiO2 % Tidal Volume PEEP Sodium 136 Potassium 3.4 L Chloride 95 L Carbon Dioxide 22 L Anion Gap 19 BUN 34 H Creatinine 6.1 H Estimated GFR/1.73 m2 8 BUN/Creatinine Ratio 6 Glucose 364 H POC Glucose 373 H D Calculated Osmolality 294 Calcium 9.1 Total Bilirubin 0.21 AST 8 L ALT 6 L Alkaline Phosphatase 89 Creatine Kinase 59 Troponin T High Sens Total Protein 6.3 Albumin 3.7 Globulin 2.6 Albumin/Globulin Ratio 1.4 Plasma Lactate 4.1 H* Urine Source Urine Color Urine Turbidity Urine pH Ur Specific Chaplin Urine Protein Ur Glucose (Stick) Ur Ketones (Stick) Urine Blood Urine Nitrite Urine Bilirubin Urobilinogen Dipstick Urine Leukocytes Urine WBC (Auto) Urine RBC (Auto) U Epithel Cells (Auto) Urine Bacteria (Auto) Urine Opiates Screen Ur Oxycodone Screen Urine Methadone Screen Ur Barbiturates Screen Ur Phencyclidine Scrn Ur Amphetamines Screen U Benzodiazepines Scrn Urine Cocaine Screen U Cannabinoids Screen 09/05/19 09/05/19 09/05/19 11:00 11:00 11:00 WBC 5.59 RBC 5.09 Hgb 13.9 Hct 42.1 MCV 82.7 MCH 27.3 MCHC 33.0 RDW Std Deviation 14.2 Plt Count 178 MPV 11.5 H Immature Gran % (Auto) 0.5 Neut % (Auto) 64.2 Lymph % (Auto) 25.6 [place] % (Auto) 7.2 Eos % (Auto) 1.8 Baso % (Auto) 0.7 Immature Gran # (Auto) 0.03 Neut # (Auto) 3.59 Lymph # (Auto) 1.43 [place] # (Auto) 0.40 Eos # (Auto) 0.10 Baso # (Auto) 0.04 PT 13.9 INR 1.06 PTT (Actin FS) 36.8 Specimen Type Sample Site pH pCO2 pO2 HCO3 Base Excess Oxyhemoglobin ABG O2 Sat (Calculated) ABG O2 Saturation ABG Carboxyhemoglobin ABG Methemoglobin Mauricio Test A-a O2 Difference Total Hemoglobin Lactate Blood Gas Modality Spontaneous Rate FiO2 % Tidal Volume PEEP Sodium Potassium Chloride Carbon Dioxide Anion Gap BUN Creatinine Estimated GFR/1.73 m2 BUN/Creatinine Ratio Glucose POC Glucose Calculated Osmolality Calcium Total Bilirubin AST ALT Alkaline Phosphatase Creatine Kinase Troponin T High Sens 151 H* Total Protein Albumin Globulin Albumin/Globulin Ratio Plasma Lactate Urine Source Urine Color Urine Turbidity Urine pH Ur Specific Cha[place]in Urine Protein Ur Glucose (Stick) Ur Ketones (Stick) Urine Blood Urine Nitrite Urine Bilirubin Urobilinogen Dipstick Urine Leukocytes Urine WBC (Auto) Urine RBC (Auto) U Epithel Cells (Auto) Urine Bacteria (Auto) Urine Opiates Screen Ur Oxycodone Screen Urine Methadone Screen Ur Barbiturates Screen Ur Phencyclidine Scrn Ur Amphetamines Screen U Benzodiazepines Scrn Urine Cocaine Screen U Cannabinoids Screen 09/05/19 09/05/19 09/05/19 11:25 11:25 11:44 WBC RBC Hgb Hct MCV MCH MCHC RDW Std Deviation Plt Count MPV Immature Gran % (Auto) Neut % (Auto) Lymph % (Auto) [place] % (Auto) Eos % (Auto) Baso % (Auto) Immature Gran # (Auto) Neut # (Auto) Lymph # (Auto) [place] # (Auto) Eos # (Auto) Baso # (Auto) PT INR PTT (Actin FS) Specimen Type ARTERIAL Sample Site R RADIAL pH 7.36 pCO2 44 pO2 518 H HCO3 24.3 Base Excess -0.8 Oxyhemoglobin 97.4 ABG O2 Sat (Calculated) 21.3 ABG O2 Saturation 99.3 ABG Carboxyhemoglobin 1.10 ABG Methemoglobin 0.8 Mauricio Test YES A-a O2 Difference 140.0 Total Hemoglobin 14.5 Lactate 3.70 H Blood Gas Modality VENTILATOR Spontaneous Rate 16 FiO2 % 100.0 Tidal Volume 500 PEEP 5.0 Sodium Potassium Chloride Carbon Dioxide Anion Gap BUN Creatinine Estimated GFR/1.73 m2 BUN/Creatinine Ratio Glucose POC Glucose Calculated Osmolality Calcium Total Bilirubin AST ALT Alkaline Phosphatase Creatine Kinase Troponin T High Sens Total Protein Albumin Globulin Albumin/Globulin Ratio Plasma Lactate Urine Source CATH Urine Color YELLOW Urine Turbidity CLEAR Urine pH 6.5 Ur Specific Chaplin 1.014 Urine Protein 600 A Ur Glucose (Stick) >1000 A Ur Ketones (Stick) NEGATIVE Urine Blood SMALL A Urine Nitrite NEGATIVE Urine Bilirubin NEGATIVE Urobilinogen Dipstick NORMAL Urine Leukocytes NEGATIVE Urine WBC (Auto) <10 Urine RBC (Auto) <10 U Epithel Cells (Auto) <10 Urine Bacteria (Auto) NEGATIVE Urine Opiates Screen PRESUMPTIVE POS A Ur Oxycodone Screen NONE DETECTED Urine Methadone Screen NONE DETECTED Ur Barbiturates Screen NONE DETECTED Ur Phencyclidine Scrn NONE DETECTED Ur Amphetamines Screen NONE DETECTED U Benzodiazepines Scrn NONE DETECTED Urine Cocaine Screen NONE DETECTED U Cannabinoids Screen NONE DETECTED Orders Category Date Time Status Cardiac Monitoring NOW Care 09/05/19 12:08 Active Banks Cath Insertion ORDERED Care 09/05/19 10:58 Active Isolation [Isolation Precautions Setup] NOW Care 09/05/19 13:00 Active NEWS Score >or=5:Order NEWS Bundle S.O. NOW Care 09/05/19 11:55 Active NG/OG/Feeding Tube Insertion ORDERED Care 09/05/19 12:12 Active Neurological Check Q12-HR ASSESS Care 09/05/19 09:57 Active Notify Provider of NEWS Score NOW Care 09/05/19 12:08 Active Restraint Initiate NonViolent ONCE Care 09/05/19 11:30 Active CHEST-PORTABLE [RAD] Stat Exams 09/05/19 09:52 Completed CHEST/ABD TUBE PLACEMENT [RAD] Stat Exams 09/05/19 12:[address] HEAD W/O CONTRAST [CT] Stat Exams 09/05/19 09:23 Completed ABG [RESP] Routine Lab 09/05/19 11:44 Completed BLOOD CULTURE [BLDCUL] Stat Lab 09/05/19 12:08 Uncollected CBC WITH ELECTRONIC DIFF [HEME] Stat Lab 09/05/19 11:00 Completed CK PROFILE [SP CHEM] Stat Lab 09/05/19 11:00 Completed COMPREHENSIVE METABOLIC PANEL [CHEM] Stat Lab 09/05/19 11:00 Completed LACTATE, PLASMA [CHEM] Lab 09/05/19 14:00 Uncollected LACTATE, PLASMA [CHEM] Lab 09/05/19 17:00 Uncollected LACTATE, PLASMA [CHEM] Stat Lab 09/05/19 11:00 Completed PROTIME WITH INR [COAG] Stat Lab 09/05/19 11:00 Completed PTT [COAG] Stat Lab 09/05/19 11:00 Completed TROPONIN T HIGH SENSITIVITY Stat Lab 09/05/19 11:00 Completed TROPONIN T HIGH SENSITIVITY Stat Lab 09/05/19 13:50 Uncollected UA NIMS W/REFLEX CULT [URINALYSIS] Stat Lab 09/05/19 11:25 Completed URINE DRUG SCREEN MEDTOX Routine Lab 09/05/19 11:25 Completed 0.9% Sodium Chloride Inj [Ns] 1,000 ml Med 09/05/19 09:34 Discontinued .ROUTE As directed 0.9% Sodium Chloride Inj [Ns] 1,000 ml Med 09/05/19 12:14 Discontinued IV 999 mls/hr 0.9% Sodium Chloride Inj [Ns] 1,000 ml Med 09/05/19 12:34 Discontinued IV 999 mls/hr Dextrose 5%-Water Inj [D5w] 250 ml Med 09/05/19 14:00 Discontinued Nitroprusside [Nipride] 100 mg IV As Directed mls/hr Etomidate [Amidate] Med 09/05/19 09:42 Discontinued 40 mg .ROUTE .STK-MED ONE Etomidate [Amidate] Med 09/05/19 09:49 Discontinued 40 mg IV NOW ONE Lorazepam [Ativan] Med 09/05/19 09:38 Discontinued 2 mg .ROUTE .STK-MED ONE Lorazepam [Ativan] Med 09/05/19 09:48 Discontinued 2 mg IV NOW ONE Nicardipine 20 mg/Ns [Cardene 20 mg/Ns] Med 09/05/19 14:00 Ordered 20 mg in 200 ml IV As Directed mls/hr Propofol [Diprivan 1%] Med 09/05/19 09:59 Discontinued 1,000 mg in 100 ml .ROUTE As directed Propofol [Diprivan 1%] Med 09/05/19 10:00 Active 1,000 mg in 100 ml IV As Directed mls/hr Succinylcholine [Quelicin] Med 09/05/19 09:39 Discontinued 200 mg .ROUTE .STK-MED ONE Succinylcholine [Quelicin] Med 09/05/19 09:48 Discontinued 200 mg IV NOW ONE O2 Per Protocol Stat Oth 09/05/19 12:08 Active Result Diagrams: 09/05/19 11:00 09/05/19 11:00 - EKG 1 Time of EKG reading by physician:: 10:14 EKG Read and Signed by:: Vidal Philippe EKG Interpretation (*Must complete 3 of following elements*): Abnormal Rate: 70 Rhythm: NSR [place]: normal QRS: normal, other (prolonged QT) AK Interval: normal ST Wave: non-specific ST changes (T wave abnormality) - XRAY 1 XRAY Study: Chest Impression: See EMR Report (EXAM: CHEST-PORTABLE INDICATION: Tube placement TECHNIQUE: One view COMPARISON: 06/04/2019 FINDINGS: The ET tube projects over the trachea and above the omero at about the T3 level. The NG tube projects below the diaphragm and is assumed to be in the lumen of the stomach in expected position. Inspiration is suboptimal. The lungs are grossly clear. There is no discrete pleural fluid collection or pneumothorax. The cardiomediastinal silhouette and central vasculature are grossly unremarkable. IMPRESSION: Recent placement of ET tube and NG tube as described above and low lung volumes. No definite acute chest pathology by plain radiograph, otherwise. Electronically signed by Nixon Kearney 09/05/2019 10:31 AM) - CT/MRI 1 CT Study: Head Impression: Abnormal, See EMR Report ( EXAM: CT HEAD W/O CONTRAST INDICATION: SEIZURE LIKE ACTIVITY/CVA TECHNIQUE: This exam was performed using automated exposure control, adjustment of mA or kV according to patient size, and/or use of iterative reconstruction technique. COMPARISON: None. FINDINGS: There is mild patchy low attenuation in the left parietal periventricular and subcortical white matter suggesting mild microangiopathy. There is a tiny round low dense focus associated with the thalamus on the right. This may be chronic. A subacute lacunar infarct cannot completely be excluded with no prior studies available for comparison. There is no other definite acute infarct given the limited sensitivity of CT versus MRI. There is no discrete intracranial mass, mass effect, or intracranial hemorrhage. The surrounding soft tissues and bony structures are essentially unremarkable. IMPRESSION: Suggestion of minimal left parietal white matter microangiopathy and a tiny round focus of low attenuation in the thalamus on the right that certainly may be chronic. However, a tiny subacute lacunar infarct would be difficult to exclude with no prior studies available for comparison. Electronically signed by Nixon Kearney 09/05/2019 11:12 AM) Comparison with other Films: no prior study 2 CT Study: other (NG tube placement) Impression: Normal, See EMR Report (EXAM: CHEST/ABD TUBE PLACEMENT INDICATION: Re-insertion of OG tube TECHNIQUE: One view COMPARISON: 09/05/2019 FINDINGS: The newly reinserted OG tube is identified. The tip projects well below the diaphragm and is assumed to be in the lumen of the stomach in expected position. There is gaseous distention of the stomach. Limited views of the lung bases are approximately stable. IMPRESSION: OG tube tip below the diaphragm in the expected position. Electronically signed by Nixon Kearney 09/05/2019 1:23 PM) - CONSULTS/PCP/HOSPITALIST Notification #1 *Consult/PCP/Hospitalist*: María RIVERA Time Discussed: 13:59 Consult Disposition: Will see in ED Procedures - CENTRAL LINE Consent Form Signed?: No (pt unresponsive ) Time-Out Verification Completed?: No Central Line Lumen: triple Central Line Procedure Prep: Hand Hygeine Performed, Kit Utilized, Chloraprep Patient Position (To prevent Air Embolism): Supine (Femoral) Central Line Position: femoral (R) Ultrasound Guided?: No Hat, mask, sterile gown, & sterile gloves worn by physician?: Yes Site scrubbed vigorously for 30 seconds? (Groin: 2 min): Yes Anesthetic: 1%, Lidocaine/Xylocaine Complications: See comments (arterial stick on 1st try, pressure held for 5 mins.) - INTUBATION Time of Intubation: 10:00 Airway Evaluation: Obese Mallampati Class: 4 Intubation Method: orotracheal Equipment: Glidescope Tube Size (cm): 7.5 Pretreated with 100% Oxygen?: Yes Breath Sounds after Intubation: equal ETT Primary Tube Confirmation: Direct Visualization Intubation Complications: oral-unsuccessful attempt (x1 w/MD NICOLE on 2nd attempt was successful) Vent Settings: See Respiratory Therapy Notes Procedure Comment: 100 succs, 30 atomodate Departure - Departure Date of Disposition Decision: 09/05/19 Time of Disposition Decision: 14:00 DIAGNOSIS: Status epilepticus, End-stage renal disease Uncontrolled diabetes mellitus Qualifiers: Diabetes mellitus type: type 2 Glycemic state: with hyperglycemia Qualified Code(s): E11.65 - Type 2 diabetes mellitus with hyperglycemia Disposition: ADMITTED INPATIENT 09 Certified Medical Emergency: Emergent Condition: Critical Referrals and Follow-Ups: UNKNOWN, [Primary Care Provider] - Discharge Education: Steps to Quit Smoking, [id number] - Critical Care Note This patient required my direct & personal management of CC.: Yes Total Time (mins): 115 Critical Care Statement: This patient required my direct personal management to treat or rule out processes, the absence of which, could potentiallly result in sudden, clinically significant life or limb threatening deterioration. Attestation - Physician/ AMBREEN Attestation Patient care was provided by Advanced Practice Provider:: No The physician spent face to face time with patient:: Yes Advanced Practice Provider documentation review:: Supervising physician onsite and consulted in the evaluation and care of this patient. The physician did have a face to face encounter with the patient. This chart was documented by the indicated scribe, (Radha Kearney Scribe) and accurately reflects the services I performed and decisions made by , Vidal Philippe DO, as attested by the provider's signature.
[2019-09-05] MEDS ORDERED: VANCOMYCIN IV PER PHARMACY MISC SCH (14:31)
[2019-09-05] MEDS ORDERED: ZOFRAN IV PRN (14:31)
[2019-09-05] MEDS ORDERED: VANCOMYCIN 1 GM/NS 1 GM/250 ML IVPB IV ONE (14:31)
--- NOTE | 2019-09-05 14:53 | HISTORY AND PHYSICAL ---
HISTORY OF PRESENT ILLNESS: Ms. Villa is a 59-year-old. She has end-stage renal disease, followed by Dr. Quinonez. She was last admitted on 06/25/2019 with a left arm wound. I think it was her AV fistula they were working on. Presented this time. I do not have much history other than she was having tonic-clonic seizure and they had to intubate her. There was no reported history of chest pain. I do not have much else in the way of history. PAST MEDICAL HISTORY: 1. Hypertension. 2. End-stage renal disease, chronic kidney disease stage 5D, on dialysis. 3. Diabetes mellitus type 2. 4. Morbid obesity. 5. Dyslipidemia. 6. Legally blind. PAST SURGICAL HISTORY: I think she has had an AV fistula for dialysis. ALLERGIES: Latex and natural rubber. Otherwise, no known drug allergies. SOCIAL HISTORY: No tobacco or alcohol. FAMILY HISTORY: By old report, no significant family history, noncontributory. REVIEW OF SYSTEMS: I do not have any review of systems. PHYSICAL EXAMINATION: GENERAL: She was intubated and sedated. VITAL SIGNS: Temperature is 99.5 degrees, pulse 89, respirations 30, blood pressure 178/89. HEENT: Her pupils appeared equal and reactive. NECK: Supple. No distended neck veins that I could appreciate. LUNGS: Clear anterolaterally. CARDIOVASCULAR EXAMINATION: Regular rhythm and rate without murmur or S3. PMI nondisplaced. Carotid, radial, and femoral pulses 2+ and symmetrical. She has an IV catheter in her right femoral. WEIGHT AND HEIGHT: Weight is 250 pounds. Height is 5 feet 7 inches. ABDOMEN: Soft, nondistended. SKIN: Warm and dry. EXTREMITIES: No pedal edema. LABORATORY DATA: White count 5590, hematocrit 42, platelet count is 178,000. Sodium 136, potassium 3.4, chloride 95, BUN 34, creatinine 6.1, blood sugar 364, calcium is 9.1. AST is 8, ALT is 6, alkaline phosphatase is 89, albumin is 3.7. Prothrombin time is 13.9, INR is 1.06, PTT is 36. Urine drug screen positive for opiates. Negative for oxycodone, methadone, barbiturates, phencyclidine, amphetamines, benzodiazepines, urine cocaine and cannabinoids. Urinalysis was unremarkable. Blood gas, pH was 7.36, pCO2 was 44, PO2 was 318. Chest x-ray, recent placement of ET tube, NG tube in good placement, had low lung volumes. No definite acute chest pathology appreciated. No infiltrates. Head CT, suggestion of minimal left parietal white matter microangiopathy and tiny round focus of low attenuation in the thalamus on the right which could be chronic. Tiny subacute lacunar infarct would be difficult to exclude. No sign of bleed or acute process. ASSESSMENT AND PLAN: 1. Seizure. I think there was report of deviation of her turning her head to the left. No way to tell of any focal neurologic deficits this point. She is sedated and had to be intubated. We may need to get an MRI of her head. We could pursue that tomorrow. As far as medication, she is on Diprivan right now but I presume we need to put her on an antiepileptic and so we will go ahead and put her on Keppra and we will do 250 mg intravenous twice a day. Ask neurology to help in making a decision on what we need to do. 2. Blood pressure was elevated. I put her on a Cardene drip. 3. History of diabetes mellitus. We will follow pattern of sugars. No sign of ketoacidosis. 4. End-stage renal disease, chronic kidney disease stage 5D. Will need to undergo dialysis. Her volume status and electrolytes and acid-base status look good right now and really no significant anemia. Hematocrit is 42, hemoglobin 13. We are going to check T4, TSH, B12, and folate. REVIEW OF HER HOME MEDICINES: She was on Eliquis so we will continue the Eliquis, I guess when we are able. At this point, we are going to hold it. She was on 5 mg twice a day. She was on Bystolic 2.5 mg daily, pravastatin 40 mg a day, sevelamer 800 mg 3 times a day, and torsemide 20 mg daily. We will hold those for now. I will put her on a sliding scale sugar. See if we can obtain more history about what happened. She is on the ventilator so we will ask pulmonary to see as well for weaning. cc: Mauricio Hernández MD
--- NOTE | 2019-09-05 15:45 | Diag Imaging Result Doc PS360 ---
EXAM: PELVIS INDICATION: Femoral line placement TECHNIQUE: One view COMPARISON: None. FINDINGS: There are degenerative changes of the right acetabular roof. There is no evidence of fracture, dislocation, or significant intrinsic osseous lesion, otherwise. I right femoral central line is noted. Surrounding soft tissues are unremarkable. IMPRESSION: Degenerative changes at the acetabular roof and newly placed right femoral central line. Unremarkable, otherwise. Electronically signed by Nixon Kearney 09/05/2019 3:43 PM
[2019-09-05] MEDS: ROCEPHIN 1 GM in NS 50 ML IV SCH (16:01)
[2019-09-05] MEDS: KEPPRA 500 MG in NS 100 ML IV SCH (16:07)
[2019-09-05] MEDS: CARDENE 20 MG/NS 20 MG/200 ML PIGGYBACK IV SCH (16:58)
[2019-09-05] MEDS: HUMULIN R SUBQ SCH ×2 (17:36→20:03)
[2019-09-05] MEDS ORDERED: SODIUM CHLORIDE 0.9% INJ SCH (19:30)
--- NOTE | 2019-09-05 19:34 | NEPHROLOGY CONSULTATION ---
DATE: 09/05/2019 REASON FOR CONSULTATION: Assistance with management. I was contacted directly by Dr. Vidal Philippe in the emergency room. HISTORY OF PRESENT ILLNESS: Ms. Villa is a 59-year-old, woman who is on chronic hemodialysis for management for stage 5 chronic kidney disease. She uses a tunneled dialysis catheter in the left chest. She has hypertension, diabetes. She was brought to the emergency room. Because of intractable seizures. She had apparently had a headache prior previous today and refused to come to the emergency room though her family encouraged it. On the date of admission, she had seizures and was unresponsive and therefore was transported to the emergency room by ambulance. Her initial evaluation found a temperature 99.5 degrees, blood pressure 178/89 and heart rate of 80. She is not able to provide any history. She was treated with intubation and mechanical ventilation. Her drug screen was positive for opioids. But no other significant findings on her labs. White count was normal at 5.6 and chemistries were as expected for a chronic dialysis patient. Her initial lactate was 4.1, but normalized to 1.7. Again, she had a seizure. Chest x-ray without evidence of pneumonia. Head CT: Chronic white matter changes and "tiny subacute lacunar infarct would be difficult to exclude." PAST MEDICAL HISTORY: As above. She also has blindness, comma morbid obesity, hyperlipidemia. HOME MEDICATIONS: Include apixaban, pravastatin, sevelamer, torsemide, albuterol hydrocodone, pantoprazole, clonidine, insulin, linagliptin, meclizine, montelukast, nebivolol. ALLERGIES: Latex. SOCIAL HISTORY: Not obtainable other than what is listed. FAMILY HISTORY: Not obtainable other than what is listed. REVIEW OF SYSTEMS: Not obtainable other than what is listed. PHYSICAL EXAMINATION: Vital Signs: Blood pressure 136/62, heart rate 55, respirations 15, afebrile. T-max 99.5 degrees. Generally: She is in no acute distress, but she is sedated on the ventilator. Skin: Warm and dry. HEENT: Conjunctivae are pink and moist. Pupils are equal and constricted. There is a cataract on the right. Oropharynx is clear. Tongue is normal. Neck: Supple. Trachea is midline. Neck veins are not distended. Heart: PMI is difficult to palpate. Regular rate, but tachycardic. Lungs: Have equal breath sounds. No crackles or wheezes. Abdomen: Soft, nontender. Bowel sounds are present. Extremities: No edema, clubbing or cyanosis. IMPRESSION: 1. Acute altered mental status. Presumably related to seizures. These are currently controlled. She has been treated for possible sepsis including volume resuscitation and IV antibiotics. This is all dosed appropriately. 2. Her blood pressure was markedly elevated in the emergency room as high as 250/113. As such, she is receiving IV nicardipine. and her blood pressure is well controlled at this time. She certainly does not have any indications for acute dialysis and electrolyte acid-base status is acceptable. Volume status is acceptable. No changes from my perspective. We will follow with you. cc: Russell Quinonez MD
[2019-09-05] MEDS: CATAPRES PO SCH ×2 (20:03→20:08)
--- NOTE | 2019-09-05 20:12 | PULMONOLOGY CONSULTATION ---
DATE: 09/05/2019 CONSULTING PHYSICIAN: Mauricio Hernández MD REASON FOR CONSULT: Respiratory failure. HISTORY OF PRESENT ILLNESS: This is a 59-year-old female with a history of hypertension, end- stage renal disease on Friday, Friday, Friday dialysis, diabetes type 2, and morbid obesity. She presented to the emergency room via EMS from an extended care facility having tonic-colonic seizures and was intubated in the emergency room. At the time of my exam, of course, the patient is intubated and sedated. There are no family members present so history is taken from the ER record as well as Dr. Hernández's history and physical. PAST MEDICAL HISTORY: 1. Hypertension. 2. End-stage renal disease, stage 5D on Friday, Friday, Friday hemodialysis. 3. Diabetes mellitus type 2. 4. Morbid obesity. 5. Legally blind. 6. Recent diagnoses of gastric erosions with duodenal ulcers. 7. Right atrial thrombus in June 2019. PAST SURGICAL HISTORY: AV fistula for dialysis. ALLERGIES: Documented latex and natural rubber. FAMILY HISTORY: Unobtainable. REVIEW OF SYSTEMS: Unable to obtain. PHYSICAL EXAMINATION: General: This is a 59-year-old female who is lying on the bed in the ICU, intubated and sedated. Vital Signs: Blood pressure is 113/57 with a heart rate of 56, respirations are 15, temperature is 97.4 degrees with O2 saturations 100%. HEENT: Head is normocephalic, atraumatic. Mucous membranes are dry. Neck: Supple with trachea midline. Cardiovascular: Regular rate and rhythm. S1 and S2 to are appreciated. No murmur. Pulmonary: Breath sounds are clear and respirations are per ventilator. Chest rises and falls symmetric with respiration Gastrointestinal.: Abdomen is soft, non distended with bowel sounds in all 4 quadrants. NG tube is noted. Genitourinary: Banks is patent with qi urine draining. Extremities: No clubbing, cyanosis, or edema. Pedal pulses are palpable. She does have a right femoral IV noted. LABS: WBC is 5.5 with hemoglobin 13.9, hematocrit 42.1, and platelets 178,000. Sodium is 136, potassium 3.4, BUN 34, creatinine 6.1 with a glucose of 364. Troponin is 326. Urinalysis is essentially negative. Urine drug screen is presumptive positive for opiates. Blood cultures are pending. Influenza A and B are negative. CT of the head revealed minimal left parietal white matter microangiopathy with a tiny round focus of low attenuation in thalamus on the right that may be chronic. However, a tiny subacute lacunar infarct would be difficult to exclude. Chest x-ray revealed ET tube and NG with low lung volumes. No definite acute chest pathology. ASSESSMENT/PLAN: 1. Seizure. Keppra per primary team. 2. Respiratory failure with mechanical intubation. We will continue with daily chest x-rays, ABGs, wean oxygen as tolerated. Sedation with propofol per protocol. 3. Chronic kidney disease, stage 5D on dialysis. Nephrology is following. 4. We will contain continue antibiotics as per primary team. 5. Subacute lacunar infarct noted. Thank you for allowing us to participate in this patient's care. Dictated by NICOLE Pena for Chetan Moss MD cc: NICOLE Pena MD [facility]
[2019-09-05] MEDS: PROTONIX IV SCH (20:13)
[2019-09-06] MEDS: HUMULIN R SUBQ SCH ×6 (00:44→20:18)
[2019-09-06] MEDS: DIPRIVAN 1% 1,000 MG/100 ML BOTTLE IV SCH ×4 (01:38→08:59)
[2019-09-06] MEDS ORDERED: DOPAMINE 400 MG/D5W 400 MG/500 ML IV.SOLN IV SCH (03:15)
[2019-09-06 05:17] LABS: ALLEN TEST YES; BE -0.7 mmoll (-3.0-3.0); BLOOD TYPE ARTERIAL; HCO3-(ACT) 24.4 mmoll (20.0-26.0); METHB 0.9 % (0.0-1.5); O2(CT) 26.5 mL/dL (15.0-23.0); O2HB 97.5 % (95.0-99.0); PCO2(98.6) 37 mmHg (35-45); PO2(98.6) 166 mmHg (60-100); SAMPLE BLOOD; SAO2 101.5 % (95.0-100.0); SRATE 15 BPM; THB 19.2 g/dL (11.5-17.4); TVOL 400 mL; pH(98.6) 7.41 (7.35-7.45)
[2019-09-06 05:19] LABS: MODALITY VENTILATOR
[2019-09-06 06:37] LABS: BASO# 0.03 X1000 (0.0-0.2); BASO% 0.6 % (0.0-0.8); EOS# 0.22 X1000 (0.0-0.7); EOS% 4.2 % (0.0-10.0); HEMATOCRIT 37.6 % (37.0-47.0); HEMOGLOBIN 12.3 g/dL (12.0-16.0); LYMPH# 2.15 X1000 (1.2-3.4); LYMPH% 41.3 % (20.5-51.1); MCH 26.9 PG (27-31); MCHC 32.7 g/dL (33-37); MCV 82.3 FL (81-99); MONO# 0.54 X1000 (0.11-0.59); MONO% 10.4 % (1.7-9.3); MPV 11.6 FL (7.4-10.4); NEUT# 2.27 X1000 (1.4-6.5); NEUT% 43.5 % (42.2-75.2); PLT 164 X1000 (130-400); RBC 4.57 XMIL (4.2-5.4); RDW 14.1 % (11.5-14.5); WBC 5.21 X1000 (4.8-10.8)
[2019-09-06] MEDS: KEPPRA 500 MG in NS 100 ML IV SCH ×2 (06:44→16:33)
--- NOTE | 2019-09-06 06:52 | Diag Imaging Result Doc PS360 ---
CHEST-PORTABLE - 09/06/2019 INDICATION: resp failure COMPARISON: 09/05/2019 FINDINGS: Support lines and tubes are stable and in good position. The lungs are clear. Heart size is normal. No pneumothorax or pleural effusion. IMPRESSION: No acute disease or change from prior. Electronically signed by Luis Rice 09/06/2019 6:50 AM
[2019-09-06 07:03] LABS: ALB/GLOB RATIO 1.2; ALBUMIN 3.1 g/dL (3.5-5.0); CALCIUM 8.6 mg/dL (8.8-10.2); MAGNESIUM 1.5 mg/dL (1.5-2.7); PHOSPHORUS 3.6 mg/dL (2.7-4.5); POTASSIUM 3.1 mmol/L (3.5-5.1); TOTAL BILIRUBIN 0.15 mg/dL (0.20-1.00); TOTAL PROTEIN 5.6 g/dL (6.3-8.3)
[2019-09-06 07:04] LABS: CREATININE 6.5 mg/dL (0.5-0.9)
--- NOTE | 2019-09-06 07:30 | EKG Report ---
Test Performed on : 09/06/2019 06:56:54 AM Test Reason : chest pain Blood Pressure : / mmHG Vent. Rate : 051 BPM Atrial Rate : 051 BPM P-R Int : 152 ms QRS Dur : 078 ms QT Int : 636 ms P-R-T Axes : 023 015 024 degrees QTc Int : 586 ms Sinus bradycardia. Nonspecific T wave abnormality Prolonged QT Abnormal ECG When compared with ECG of 05-SEP-2019 10:14, (Unconfirmed) Nonspecific T wave abnormality now evident in Anterior leads Nonspecific T wave abnormality no longer evident in Lateral leads QT has lengthened Confirmed by Fortunato Gandhi MD ([id number]) on 09/07/2019 1:48:58 PM
--- NOTE | 2019-09-06 07:35 | EKG Report ---
Test Performed on : 09/05/2019 10:14:33 AM Test Reason : SEIZURE Blood Pressure : / mmHG Vent. Rate : 070 BPM Atrial Rate : 070 BPM P-R Int : 166 ms QRS Dur : 076 ms QT Int : 464 ms P-R-T Axes : 045 014 098 degrees QTc Int : 501 ms Normal sinus rhythm. Nonspecific T wave abnormality Prolonged QT Abnormal ECG When compared with ECG of 05-JUN-2019 05:26, No significant change was found Unconfirmed Result
[2019-09-06] MEDS ORDERED: NS 2,000 ML MISC PRN ×2 (07:45→07:57)
[2019-09-06] MEDS ORDERED: TIGHT: 0.2 ML/HR FOR DIALYSIS MISC PRN (07:45)
[2019-09-06] MEDS ORDERED: HEPARIN IV PRN (07:45)
[2019-09-06] MEDS ORDERED: VANCOMYCIN 1 GM/NS 1 GM/250 ML IVPB IV SCH (07:45)
[2019-09-06] MEDS ORDERED: VANCOMYCIN 1 GM/NS 1 GM/250 ML IVPB IV ONE ×2 (08:19→18:00)
[2019-09-06] MEDS: CATAPRES PO SCH ×2 (08:57→20:18)
--- NOTE | 2019-09-06 09:57 | NEUROLOGY CONSULTATION ---
DATE: 09/06/2019 LOCATION: ICU bed 2. HISTORY OF PRESENT ILLNESS: Ms. Villa is 59 years old, and there is report of recent generalized tonic-clonic seizure. She was intubated, and at the time of my visit is mechanically ventilated and heavily sedated with propofol. I do not have any history other than what is recorded in the hospital chart. I do not know about any prior seizure history, prior stroke, prior head injury, or other neurologic history. There is reported to be past history of hypertension, dyslipidemia, diabetes mellitus type 2, end- stage renal disease managed with hemodialysis. She presented with BUN in the 30s. Blood sugars were initially 300s, and then 100s. Urine drug screen was positive for opiates, consistent with her home medication list containing hydrocodone. Systolic blood pressures ranged from 100s to 260s. Noncontrast CT is reported to raise question of right thalamic lucency and white matter changes, more prominent on the left. She was started on levetiracetam 500 mg every 12 hours. I believe that has been dosed twice to this point, and she also received lorazepam 2 mg once about 24 hours ago. PHYSICAL EXAMINATION: On exam now, she is supine, intubated, motionless. Passive head turning produced minimal lateral eye movement. Corneal reflex was present bilaterally, but very sluggish. I did not see definite pupil reaction to bright light, and both pupils have chronic scarred appearance, more irregular on the left. Facial motility is symmetric. Limb tone is symmetric. Plantar response is silent bilaterally. I did not see consistent limb withdrawal with noxious stimulation over any limb. Neck is supple. IMPRESSION: Global encephalopathy, current appearance consistent with her heavy sedation. There is report that she had recent seizure. If this is new-onset seizure, etiology is not certain. She has some relatively minor findings on chemistry profile, but nothing that likely would be sufficient to explain seizure. The preadmission medication list is fairly lengthy, but does not include anything that likely would be associated with seizure, either with intoxication or in withdrawal. I will order electroencephalogram and follow with you. We will need to be careful with the levetiracetam dose in light of her renal failure, and we might check levetiracetam level at some point. Eventually, brain MRI or repeat head CT might be helpful. I do not have any other suggestion right now. Thank you for asking Neurology to see Ms. Villa. cc: Shari Shah III, MD MTDArleth
[2019-09-06] MEDS ORDERED: MORPHINE IV ONE (10:30)
--- NOTE | 2019-09-06 11:27 | NEPHROLOGY PROGRESS NOTE ---
DATE: 09/06/2019 SUBJECTIVE: She is unresponsive this morning despite her Diprivan being discontinued. OBJECTIVE: Vital Signs: Blood pressure 107/55, heart rate 48, respirations 15, afebrile. General: No acute distress. Skin: Warm and dry. HEENT and Neck: Pupils are equal. The neck veins are not distended. Cardiovascular: Heart is regular. No gallops. Lungs: Equal. No crackles or wheezes. Abdomen: Soft, nontender. Bowel sounds present. Extremities: With 1+ edema. No clubbing or cyanosis. IMPRESSION: Chronic kidney disease 5D. PLAN: SLED today using her tunneled dialysis catheter. A 4-potassium bath, 30 bicarbonate. Goal of 4 L ultrafiltration. Appreciate consultants. We will follow. cc: Russell Quinonez MD
[2019-09-06] MEDS: CARDENE 20 MG/NS 20 MG/200 ML PIGGYBACK IV SCH ×7 (12:18→22:39)
--- NOTE | 2019-09-06 13:40 | PROGRESS NOTE ---
DATE: 09/06/2019 SUBJECTIVE: Ms. Villa is intubated. Her blood pressure started rising. She was off the Cardene drip. She did get dialysis I think or was in the process of getting dialysis this morning. VITAL SIGNS: Temperature is 100.0 degrees, pulse 80, respirations 24, blood pressure 191/74, and previous blood pressure is 127/60, 130/60. ASSESSMENT AND PLAN: 1. Chronic kidney disease stage 5 D. She has been getting slow, low efficiency dialysis treatment through her tunneled dialysis catheter, and the goal is 4 liters of ultrafiltration. 2. Global encephalopathy consistent with heavy sedation. Report was that she came in with a seizure, tonic clonic, new onset seizure, etiology uncertain. I do not see anything on the lab that would sufficiently explain a new seizure. She did have positive I think opioids on her toxicology. 3. Respiratory failure. When she came in with a seizure and now on mechanical ventilation. Pulmonary is following in attempts to try and wean her off the ventilator. 4. She has subacute lacunar infarct. REVIEW OF HER CURRENT ORDERS: She is back on her nicardipine 20 mg per 200 L. She is on Catapres 0.2 mg p.o. b.i.d. She was on a dopamine drip for awhile that was turned off. She is on levetiracetam 500 mg IV q. 12 hours, Protonix 40 mg IV daily, ceftriaxone 1 g IV q. 24 hours, getting vancomycin dosing after dialysis, etomidate (she got one-time dose I think when she was intubated). REVIEW OF LABS: Her lab from this morning: Sodium 137, potassium 3.1, chloride 100, BUN 35, creatinine 0.5. Her troponin was a little high at 258. Blood sugars 178, 149, 192, 169. Continue present treatment. We are covering for infection. I do not see obvious source of any infection, but cover broad spectrum until we know. So far, microbiology revealed influenza is negative for A and B influenza nasopharyngeal swabs. Blood cultures pending. cc: Mauricio Hernández MD
--- NOTE | 2019-09-06 13:53 | PULMONOLOGY PROGRESS NOTE ---
DATE: 09/06/2019 SUBJECTIVE: The patient is arousable off sedation. She developed significant hypertension with systolic blood pressures greater than 275. She has been reinitiated on a Cardene drip. She remains on hemodialysis. OBJECTIVE: Vital Signs: BP 191/74, heart rate 88, respiratory rate 23, oxygen saturation 99%. HEENT: Pupils are equal and reactive. Oropharynx appears clear. Neck is supple. Chest reveals good air entry bilaterally without wheezing or rhonchi. Cardiac Examination: S1, S2. Abdomen is obese and soft. Extremities reveal trace edema. Laboratories: Arterial blood gas this morning reveals a pH of 7.41, pCO2 of 37, PO2 of 166. Sodium 137, potassium 3.1, chloride 100, bicarbonate 24, BUN 35, creatinine of 6.5. Chest x-ray reveals no evidence of acute disease. IMPRESSION: A 59-year-old with: 1. Acute hypoxemic respiratory failure. 2. Encephalopathy with possible stroke or seizure. 3. End-stage renal disease. 4. Labile blood pressure. PLAN: 1. Continue to hold sedation. An EEG has been ordered by Dr. Shah. 2. Re-initiate Cardene drip and attempt to control blood pressure. If blood pressure can be controlled and her mental status marginally improved, I will entertain extubation later today. Time spent in critical care management, 35 minutes. cc: Cehtan Moss MD
[2019-09-06] MEDS: ROCEPHIN 1 GM in NS 50 ML IV SCH (15:20)
[2019-09-06] MEDS ORDERED: OFIRMEV 1000 MG/ISOTONIC SOLN 1,000 MG/100 ML BOTTLE IV PRN (17:28)
[2019-09-06 17:46] LABS: ALLEN TEST YES; BE -4.5 mmoll (-3.0-3.0); BLOOD TYPE ARTERIAL; HCO3-(ACT) 21.4 mmoll (20.0-26.0); METHB 1.4 % (0.0-1.5); MODALITY VENTILATOR; O2(CT) 19.9 mL/dL (15.0-23.0); O2HB 96.3 % (95.0-99.0); PCO2(98.6) 31 mmHg (35-45); PO2(98.6) 156 mmHg (60-100); SAMPLE BLOOD; SAO2 98.8 % (95.0-100.0); THB 14.5 g/dL (11.5-17.4)
[2019-09-06] MEDS: PROTONIX IV SCH (20:18)
[2019-09-07] MEDS: CARDENE 20 MG/NS 20 MG/200 ML PIGGYBACK IV SCH ×6 (00:41→23:59)
[2019-09-07] MEDS: HUMULIN R SUBQ SCH ×6 (00:49→20:52)
[2019-09-07] MEDS: KEPPRA 500 MG in NS 100 ML IV SCH ×2 (04:28→16:30)
[2019-09-07 04:44] LABS: ALLEN TEST YES; BE -5.4 mmoll (-3.0-3.0); BLOOD TYPE ARTERIAL; HCO3-(ACT) 20.7 mmoll (20.0-26.0); O2(CT) 19.8 mL/dL (15.0-23.0); O2HB 96.4 % (95.0-99.0); PCO2(98.6) 34 mmHg (35-45); PO2(98.6) 119 mmHg (60-100); SAMPLE BLOOD; SAO2 99.1 % (95.0-100.0); THB 14.5 g/dL (11.5-17.4); pH(98.6) 7.36 (7.35-7.45)
[2019-09-07 04:46] LABS: MODALITY CANNULA
[2019-09-07 06:26] LABS: BASO# 0.03 X1000 (0.0-0.2); BASO% 0.3 % (0.0-0.8); EOS# 0.13 X1000 (0.0-0.7); EOS% 1.1 % (0.0-10.0); HEMATOCRIT 39.2 % (37.0-47.0); HEMOGLOBIN 12.8 g/dL (12.0-16.0); IMM GRAN# 0.02 X1000 (0.0-0.04); IMM GRAN% 0.2 % (0.0-0.5); LYMPH# 1.69 X1000 (1.2-3.4); LYMPH% 14.2 % (20.5-51.1); MCH 27.6 PG (27-31); MCHC 32.7 g/dL (33-37); MCV 84.5 FL (81-99); MONO# 0.87 X1000 (0.11-0.59); MONO% 7.3 % (1.7-9.3); MPV 11.7 FL (7.4-10.4); NEUT# 9.17 X1000 (1.4-6.5); NEUT% 76.9 % (42.2-75.2); PLT 165 X1000 (130-400); RBC 4.64 XMIL (4.2-5.4); RDW 14.5 % (11.5-14.5); WBC 11.91 X1000 (4.8-10.8)
[2019-09-07 07:16] LABS: ALB/GLOB RATIO 0.8; CALCIUM 8.4 mg/dL (8.8-10.2); CREATININE 3.7 mg/dL (0.5-0.9); MAGNESIUM 1.8 mg/dL (1.5-2.7); PHOSPHORUS 2.7 mg/dL (2.7-4.5); POTASSIUM 4.5 mmol/L (3.5-5.1); TOTAL BILIRUBIN 0.2 mg/dL (0.20-1.00); TOTAL PROTEIN 6.6 g/dL (6.3-8.3)
[2019-09-07] MEDS: CATAPRES PO SCH ×2 (08:25→20:53)
[2019-09-07] MEDS ORDERED: BYSTOLIC PO ONE (11:37)
--- NOTE | 2019-09-07 12:14 | PULMONOLOGY PROGRESS NOTE ---
DATE: 09/07/2019 SUBJECTIVE: The patient appears comfortable, off mechanical ventilation. She attempts to answer questions. She does follow commands in a delayed fashion. OBJECTIVE: Vital Signs: Blood pressure 155/63, heart rate 81, respiratory rate 22, oxygen saturation 94%. HEENT: Left pupil is irregular. There is clouding of the right pupil. Neck: Supple. Chest: Reveals good air entry bilaterally. Cardiac: S1 and S2. Abdomen: Soft and obese. Extremities: Reveal 1+ peripheral. LABORATORIES: Arterial blood gas reveals a pH 7.36, pCO2 of 34, PO2 of 119. Sodium 139, potassium 4.5, chloride 106, bicarbonate 20, BUN 11, creatinine 3.7. IMPRESSION: A 59-year-old with: 1. Acute hypoxemic respiratory failure. 2. Encephalopathy with possible stroke or seizure. 3. Hypertensive crisis. 4. Disease. PLAN: 1. Await followup per Dr. Shah. 2. Anticipate repeat CT scan or MRI. 3. Wean oxygen as tolerated. 4. Followup chest x-ray tomorrow. cc: Chetan Moss MD
--- NOTE | 2019-09-07 12:28 | NEUROLOGY PROGRESS NOTE ---
DATE: 09/07/2019 Ms. Villa has been off propofol and has been more alert, more vigorous, with spontaneous movement, restless at times. She has not had clinically recognized seizure here. She continues receiving levetiracetam 500 mg IV q.12 hours. Lab shows blood sugars 100 to 300s. She has been afebrile for almost 24 hours. EEG shows generalized slowing but no definite epileptiform discharge or evidence of seizure. I do not have any new suggestion from a Neurology standpoint today. We can continue current levetiracetam, follow clinically, consider repeat imaging electively if she does not continue improving. Thanks for asking Neurology to see Ms. Villa. cc: MD MADISON Acosta III
[2019-09-07] MEDS: ROCEPHIN 1 GM in NS 50 ML IV SCH (15:30)
--- NOTE | 2019-09-07 18:08 | NEPHROLOGY PROGRESS NOTE ---
DATE: 09/07/2019 SUBJECTIVE: She remains altered. She is not able answer any questions. EEG is in process. OBJECTIVE: Blood pressure 176/86, heart rate 77, respirations 22, temperature 99.2 degrees. IMPRESSION AND PLAN: 1. Chronic kidney disease 5D. She had her routine dialysis yesterday. Electrolytes/acid base/volume status/anemia all in target. 2. Hypertensive emergency. Blood pressure is marginally high at this time. She is not in a condition to take p.o. medications. We will use nicardipine if needed. 3. Sepsis. She is on broad-spectrum antibiotics. One out of 2 bottles positive with coagulase- negative staphylococcus from blood cultures. Sputum with gram-negative rods. She is receiving vancomycin and ceftriaxone. cc: Russell Quinonez MD
--- NOTE | 2019-09-07 20:24 | PROGRESS NOTE ---
DATE: 09/07/2019 SUBJECTIVE: The patient is more awake today. She remains confused. She is oriented to herself. OBJECTIVE: Vital Signs: Temperature 98.8 degrees, blood pressure 177/65, heart rate 75, respirations 19, O2 saturation 98% on 2 L nasal cannula. General: This is a morbidly obese female lying in bed in no acute distress. Heart: S1, S2. Normal. Lungs: Equal air entry bilaterally. No wheezing. No rales. Abdomen: Positive bowel sounds. Soft, nontender, nondistended. Extremities: Trace pedal edema. Neurologic: The patient is alert, but only oriented to self. She is able to move all 4 extremities. LABS: White blood cell count 11, hemoglobin 12, hematocrit 39, platelets 165,000. Sodium 139, potassium 4.5, chloride 106, CO2 20, BUN 11, creatinine 3.7, glucose 305. ASSESSMENT AND PLAN: 1. Acute hypoxemic respiratory failure status post extubation. Continue with respiratory toiletry. Continue with bronchodilator therapy and supplemental oxygen. Sputum culture is growing gram negative rods. Continue on antibiotic therapy. 2. Global encephalopathy. The patient has an MRI ordered. We will continue to monitor her mental status closely. Neurology is following. 3. Seizure disorder. Continue on Keppra. 4. Poorly controlled insulin-dependent diabetes mellitus. We will restart Lantus. 5. Chronic kidney disease stage 5D. Management as per the geothermal operations manager. 6. Legally blind. Aware. 7. Morbid obesity. Aware. 8. History of right atrial thrombus. We will restart the patient's Eliquis. 9. Diabetic neuropathy. Aware. 10. Uncontrolled hypertension. We will restart the patient's antihypertensive regimen. We will try to wean off the Cardene drip. cc: Nano Schafer MD [facility]
[2019-09-07] MEDS: TRANDATE PO SCH (20:53)
[2019-09-07] MEDS: PROTONIX [NONFORMULARY] PO SCH (20:53)
[2019-09-07] MEDS: LANTUS INSULIN SUBQ SCH (20:53)
[2019-09-07] MEDS: ELIQUIS PO SCH (20:53)
[2019-09-07] MEDS: PROTONIX IV SCH (23:58)
[2019-09-08] MEDS: HUMULIN R SUBQ SCH ×6 (00:27→22:05)
[2019-09-08] MEDS: KEPPRA 500 MG in NS 100 ML IV SCH (04:50)
[2019-09-08 06:09] LABS: BASO# 0.04 X1000 (0.0-0.2); BASO% 0.5 % (0.0-0.8); EOS# 0.16 X1000 (0.0-0.7); HEMATOCRIT 35.7 % (37.0-47.0); HEMOGLOBIN 11.2 g/dL (12.0-16.0); LYMPH# 1.77 X1000 (1.2-3.4); LYMPH% 22.3 % (20.5-51.1); MCH 26.9 PG (27-31); MCHC 31.4 g/dL (33-37); MCV 85.8 FL (81-99); MONO# 0.75 X1000 (0.11-0.59); MONO% 9.5 % (1.7-9.3); MPV 11.3 FL (7.4-10.4); NEUT# 5.21 X1000 (1.4-6.5); NEUT% 65.7 % (42.2-75.2); PLT 156 X1000 (130-400); RBC 4.16 XMIL (4.2-5.4); RDW 14.6 % (11.5-14.5); WBC 7.93 X1000 (4.8-10.8)
[2019-09-08 06:14] LABS: ALB/GLOB RATIO 0.9; ALBUMIN 2.8 g/dL (3.5-5.0); CALCIUM 8.5 mg/dL (8.8-10.2); MAGNESIUM 1.7 mg/dL (1.5-2.7); PHOSPHORUS 4.3 mg/dL (2.7-4.5); POTASSIUM 4.7 mmol/L (3.5-5.1); TOTAL BILIRUBIN 0.19 mg/dL (0.20-1.00); TOTAL PROTEIN 5.8 g/dL (6.3-8.3)
[2019-09-08 06:35] LABS: CREATININE 5.5 mg/dL (0.5-0.9)
[2019-09-08] MEDS ORDERED: TIGHT: 0.2 ML/HR FOR DIALYSIS MISC PRN (07:58)
[2019-09-08] MEDS ORDERED: HEPARIN IV PRN (07:58)
[2019-09-08] MEDS ORDERED: NS 2,000 ML MISC PRN (07:58)
[2019-09-08] MEDS: TRANDATE PO SCH ×2 (08:18→22:04)
[2019-09-08] MEDS: CATAPRES PO SCH ×2 (08:18→22:04)
[2019-09-08] MEDS: ELIQUIS PO SCH ×2 (08:18→22:04)
[2019-09-08] MEDS: SINGULAIR PO SCH (08:18)
[2019-09-08] MEDS: PROTONIX [NONFORMULARY] PO SCH ×2 (08:18→22:04)
[2019-09-08] MEDS: LANTUS INSULIN SUBQ SCH ×2 (08:18→22:04)
[2019-09-08] MEDS ORDERED: BYSTOLIC PO SCH (09:00)
--- NOTE | 2019-09-08 09:19 | PROGRESS NOTE ---
DATE: 09/08/2019 SUBJECTIVE: The patient is more awake and alert today. She knows where she is and her name, and states that she is hungry. No acute events noted overnight. The patient has been weaned off of the Cardene drip. OBJECTIVE: Vital Signs: Temperature 98.8 degrees, blood pressure 136/51, heart rate 66, respirations 17, O2 saturations 100% on 2 L nasal cannula. General: This is a chronically ill- appearing elderly female lying in bed in no acute distress. Heart: S1, S2 normal. Regular rate and rhythm. Lungs: Equal air entry bilaterally. No wheezing. No rales. No rhonchi. Abdomen: Positive bowel sounds. Soft, nontender, nondistended. Extremities: No edema, no cyanosis. Neurologic: The patient is alert and oriented to person and place. She is able to move all 4 extremities. LABS: White blood cell count 7.9, hemoglobin 11, hematocrit 35, platelets 156,000. Sodium 141, potassium 4.7, chloride 109, CO2 20, BUN 16, creatinine 5.5, glucose 253. ASSESSMENT AND PLAN: 1. Acute hypoxemic respiratory failure status post extubation. Continue to try and wean the patient off of supplemental oxygen and continue with bronchodilator therapy. 2. Bronchitis secondary to Klebsiella. Continue with the current antibiotic regimen. 3. Global encephalopathy. Slowly improving. Continue to monitor closely. 4. Seizure disorder. The patient is on Keppra. No further seizure activity noted while the patient has been hospitalized. 5. Poorly controlled insulin-dependent diabetes mellitus. We will adjust the patient's Lantus dosage since she is now eating. 6. Chronic kidney disease stage 5 D. Management as per the spinner concrete pipe. 7. Legally blind. Aware. 8. Morbid obesity. Aware. 9. History of right atrial thrombus. Continue on Eliquis. 10. Diabetic neuropathy. Aware. 11. Hypertension. Continue on the current antihypertensive regimen. 12. Deep vein thrombosis prophylaxis. The patient is currently on Eliquis. DISPOSITION: The patient will be transferred to the medical floor. We will also consult physical therapy. cc: Nano Schafer MD
--- NOTE | 2019-09-08 13:54 | NEUROLOGY PROGRESS NOTE ---
DATE: 09/08/2019 SUBJECTIVE: Ms. Villa has been significantly improved. She has been awake, alert, and attentive, mostly oriented and without new neurologic problem. She has not had seizure recognized since admission. She continues levetiracetam 500 mg q.12 hours. Creatinine is 5.5. Blood sugars are in the 200s. ASSESSMENT/PLAN: I do not have any urgent suggestion. Her levetiracetam dose is moderate and reasonable in light of the poor renal function. Levetiracetam can be switched to p.o. at same dose since she is now swallowing. We might check the levetiracetam level electively. We could repeat EEG, but I do not think that would post exchange manager now. I will be glad to see her in the office to follow up on the levetiracetam, if needed. Thanks for asking Neurology to see Ms. Villa. cc: MD MADISON Acosta III
--- NOTE | 2019-09-08 15:50 | PULMONOLOGY PROGRESS NOTE ---
DATE: 09/08/2019 SUBJECTIVE: The patient is awake, alert, and conversant. She is without complaints. OBJECTIVE: Vital Signs: The patient has been afebrile for the last 24 hours. Blood pressure 165/54, heart rate 67, respiratory rate 16, and saturation 98 percent. HEENT: Pupils are equal and reactive. Oropharynx appears clear. Neck: Supple. Lungs: Chest reveals good air entry bilaterally without wheezing or rhonchi. Cardiac: S1-S2. Abdomen: Soft. Extremities: Without edema. IMPRESSION: A 59-year-old with: 1. Acute hypoxemic respiratory failure. 2. Hypertensive crisis with possible seizure. 3. End-stage renal disease. DISCUSSION: A 59-year-old with problems outlined above. She continues to rapidly improve. Oxygen saturation 98% on 2 L per nasal cannula. RECOMMENDATIONS: Wean oxygen as tolerated. No additional recommendations. We will sign off her case. Please call with questions. cc: Chetan Moss MD
[2019-09-08] MEDS: KEPPRA PO SCH ×2 (16:46→22:04)
[2019-09-08] MEDS: ROCEPHIN 1 GM in NS 50 ML IV SCH (16:46)
[2019-09-08] MEDS ORDERED: VANCOMYCIN 1 GM/NS 1 GM/250 ML IVPB IV ONE (17:00)
[2019-09-08] MEDS: TYLENOL PO PRN (17:22)
--- NOTE | 2019-09-08 18:47 | NEPHROLOGY PROGRESS NOTE ---
DATE: 09/08/2019 SUBJECTIVE: She is more alert today. Able to converse. She knows where she is but does not remember all of the events leading up to her admission. OBJECTIVE: Vital Signs: Blood pressure 170/52, heart rate 72, respiration 18, afebrile. General: No acute distress. She is currently on dialysis. Skin: Warm and dry. Neck: Neck veins are not distended. Heart: Regular with S4. Lungs: Equal. No crackles or wheezes. Abdomen: Soft, obese, nontender. Bowel sounds present. Extremities: There is 1+ edema. No clubbing or cyanosis. IMPRESSION: 1. Chronic kidney disease 5D. She is receiving her routine dialysis, 3.5 hours, using a 2K bath, and a goal of 2 to 4 L ultrafiltration as her blood pressure allows. 2. Hypertension. If uncontrolled we will need to titrate her blood pressure regimen. 3. Electrolytes/acid base/anemia. All in target. cc: Russell Quinonez MD
--- NOTE | 2019-09-08 22:31 | EEG REPORT ---
DATE: 09/06/2019 REFERRING PHYSICIAN: Shari Shah III, MD. WALL TAPER HELPER: Mari Alicea. BACKGROUND INFORMATION/TECHNIQUE: This is a digitally recorded a portable routine EEG with video. HISTORY: A 59-year-old female patient with a question of seizure. She had reported generalized tonic-clonic seizure, was intubated and on propofol earlier in her hospital course. EEG is ordered to detect evidence of seizures. MEDICATION: Levetiracetam. EEG FINDINGS: A posterior dominant alpha rhythm is not seen. The background consists of mixed frequencies, alpha, beta and theta. Additionally, there is intermittent to frequent roughly 2-10 second periods of diffuse semi-rhythmic to rhythmic delta slowing. No definite persistent focal slowing. No epileptiform discharges. No seizures. Hyperventilation is not performed. Photic stimulation does not alter the record. The patient becomes drowsy but stage II sleep is not seen. The EKG demonstrates regular intervals. IMPRESSION/CLINICAL CORRELATION: Abnormal routine EEG due to moderate generalized slowing indicative of a moderate nonspecific encephalopathy. No epileptiform discharges or seizures seen on the current study. This does not rule out an underlying seizure disorder. cc: MD Shari Aviles III, MD MTDD
[2019-09-09] MEDS: HUMULIN R SUBQ SCH ×6 (02:27→21:30)
[2019-09-09 05:31] LABS: HEMATOCRIT 36.1 % (37.0-47.0); HEMOGLOBIN 11.7 g/dL (12.0-16.0); MCH 27.7 PG (27-31); MCHC 32.4 g/dL (33-37); MCV 85.3 FL (81-99); RBC 4.23 XMIL (4.2-5.4); RDW 14.9 % (11.5-14.5); WBC 6.08 X1000 (4.8-10.8)
[2019-09-09 05:55] LABS: ALBUMIN 2.6 g/dL (3.5-5.0); CALCIUM 8.1 mg/dL (8.8-10.2); CREATININE 3.9 mg/dL (0.5-0.9); POTASSIUM 3.8 mmol/L (3.5-5.1)
[2019-09-09] MEDS: SINGULAIR PO SCH (09:55)
[2019-09-09] MEDS: NORVASC PO SCH (09:55)
[2019-09-09] MEDS: PROTONIX [NONFORMULARY] PO SCH ×2 (09:55→21:39)
[2019-09-09] MEDS: TRANDATE PO SCH ×2 (09:55→21:39)
[2019-09-09] MEDS: ELIQUIS PO SCH ×2 (09:55→21:39)
[2019-09-09] MEDS: CATAPRES PO SCH ×2 (09:55→21:39)
[2019-09-09] MEDS: KEPPRA PO SCH ×2 (09:56→21:39)
[2019-09-09] MEDS: LANTUS INSULIN SUBQ SCH ×2 (09:56→21:34)
--- NOTE | 2019-09-09 12:06 | NEPHROLOGY PROGRESS NOTE ---
DATE: 09/09/2019 SUBJECTIVE: She states that she has experienced further vision loss. 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 She states that after she recovered from her coma, she had worsened vision in the left eye. She states it is improving some today. She has "what was wrong with me?" OBJECTIVE: Vital Signs: Blood pressure 179/58, heart rate 64, respirations 16, afebrile. Generally: Middle-aged woman. Chronically ill, but no acute distress. Skin: Warm and dry. Eyes: Conjunctivae are pink. Pupils are round. She states that she is "looking at me," but her eyes are deviated to the right. Also with the light, she does not look directly at the light. Oropharynx: Dry. Neck: Neck veins are not appreciated. Heart: Regular. No gallops. Lungs: Equal. No crackles. Abdomen: Soft, nontender. Bowel sounds present. Extremities: 1+ edema. No clubbing or cyanosis. IMPRESSION: 1. Hypertensive crisis. Mental status and blood pressure improved. Blood pressure is somewhat above target currently. We added amlodipine to start this morning. 2. Electrolytes/acid base in target. 3. Volume status. Modestly volume expanded and this will be addressed progressively with dialysis. 4. Vision loss. Presumably related to her hypertensive crisis. Observe as it is improving. cc: Russell Quinonez MD
--- NOTE | 2019-09-09 14:19 | NEUROLOGY PROGRESS NOTE ---
DATE: 09/09/2019 Ms. Villa is awake, alert, attentive and appropriate. She sustained good conversation with me. She told me that she thinks she is recovered to her baseline mentally. She told me today that she has not had previous seizure or management for seizure and that she has not been aware of any other episodes of collapse or of altered awareness. ASSESSMENT/PLAN: In light of her history, I would continue levetiracetam at current dose short- term and plan to stop that in 3 to 6 months if she continues seizure-free. We might consider repeating EEG and we might check the levetiracetam level since her renal function is poor. I will be glad to follow her as an outpatient, if needed. I do not have any suggestion for management changes at this time. Thanks for asking Neurology to see Ms. Villa. cc: MD MADISON Acosta III
[2019-09-09] MEDS: ROCEPHIN 1 GM in NS 50 ML IV SCH (15:07)
--- NOTE | 2019-09-09 18:31 | PROGRESS NOTE ---
DATE: 09/09/2019 SUBJECTIVE: The patient states that she feels much better today. She complains of some vision loss. She states that she can't see as well as she did prior to coming into the hospital. She states that she is looking forward to working with physical therapy. OBJECTIVE: Vital Signs: Temperature 98 degrees, blood pressure 179/58, heart rate 64, respirations 16, O2 saturations 100% on 2 L nasal cannula. General: This is a morbidly obese female sitting at the edge of the bed in no acute distress. Heart: S1, S2 normal. Regular rate and rhythm. Lungs: Clear to auscultation bilaterally. No wheezing. No rales. No rhonchi. Abdomen: Positive bowel sounds. Soft, nontender, nondistended. Extremities: Trace pedal edema. Neurologic: The patient is alert and oriented x3. The patient has decreased visual acuity. She is able to move all 4 extremities. LABS: White blood cell count 6, hemoglobin 11, hematocrit 36, platelets 154,000. Sodium 139, potassium 3.8, chloride 102, CO2 24, BUN 11, creatinine 3.9, glucose 155. Phosphorus 4. ASSESSMENT AND PLAN: 1. Acute respiratory acute hypoxemic respiratory failure status post extubation. The patient is now on room air. 2. Hypertensive crisis. Resolved. 3. Seizures secondary to hypertensive crisis. The patient has been stable on Keppra. We will continue with the current dosage as recommended by Dr. Sahh. 4. Uncontrolled hypertension. The patient's antihypertensive regimen is being adjusted. 5. Bronchitis secondary to Klebsiella. Resolved. 6. Poorly controlled insulin-dependent diabetes mellitus. Continue with Lantus. 7. Chronic kidney disease stage 5D. Management as per the burlapper. 8. Morbid obesity. Aware. 9. History of right atrial thrombus. Continue on Eliquis. 10. Diabetic neuropathy. Aware. 11. Deep vein thrombosis prophylaxis. Continue on Eliquis. 12. Disposition. Once the patient's blood pressure is stable, she can be discharged home. Continue with physical therapy. cc: Nano Schafer MD [facility]
[2019-09-09] MEDS: TYLENOL PO PRN (21:39)
[2019-09-10] MEDS: HUMULIN R SUBQ SCH ×2 (00:45→04:00)
[2019-09-10 06:04] LABS: HEMATOCRIT 36.6 % (37.0-47.0); HEMOGLOBIN 11.8 g/dL (12.0-16.0); MCH 27.5 PG (27-31); MCHC 32.2 g/dL (33-37); MCV 85.3 FL (81-99); RBC 4.29 XMIL (4.2-5.4); RDW 14.9 % (11.5-14.5); WBC 5.65 X1000 (4.8-10.8)
[2019-09-10 06:31] LABS: ALBUMIN 2.6 g/dL (3.5-5.0); CALCIUM 8.6 mg/dL (8.8-10.2); CREATININE 5.3 mg/dL (0.5-0.9); PHOSPHORUS 4.6 mg/dL (2.7-4.5); POTASSIUM 3.6 mmol/L (3.5-5.1)
[2019-09-10] MEDS: KEPPRA PO SCH (08:38)
[2019-09-10] MEDS: CATAPRES PO SCH (08:38)
[2019-09-10] MEDS: LANTUS INSULIN SUBQ SCH (08:38)
[2019-09-10] MEDS: SINGULAIR PO SCH (08:38)
[2019-09-10] MEDS: ELIQUIS PO SCH (08:38)
[2019-09-10] MEDS: NORVASC PO SCH (08:38)
[2019-09-10] MEDS: PROTONIX [NONFORMULARY] PO SCH (08:38)
[2019-09-10] MEDS: TRANDATE PO SCH (08:38)
[2019-09-10] MEDS ORDERED: HEPARIN IV PRN (09:23)
[2019-09-10] MEDS ORDERED: NS 2,000 ML MISC PRN (09:23)
[2019-09-10] MEDS ORDERED: STERILE WATER INJ. INJ ONE (09:39)
[2019-09-10] MEDS ORDERED: CATHFLO IV ONE (09:39)
[2019-09-10] MEDS ORDERED: NORVASC PO ONE (11:23)
[2019-09-10] MEDS: TYLENOL PO PRN (12:05)
[2019-09-10 15:11] VITALS: BP 203/89
--- NOTE | 2019-09-10 16:58 | NEPHROLOGY PROGRESS NOTE ---
DATE: 09/10/2019 SUBJECTIVE: She states that she is going home today. Her vision is somewhat better. No shortness of breath. OBJECTIVE: Vital Signs: Blood pressure 186/74, heart rate 65, respiration 18, afebrile. General: No acute distress. Skin: Warm and dry. Neck: Neck veins are not appreciated. Heart: Regular. No gallops. Lungs: Equal. No crackles. Abdomen: Benign. Extremities: Trace edema. IMPRESSION: Chronic kidney disease 5D. She is completing her routine dialysis today. Blood pressure remains high and her amlodipine will be titrated to 10 mg a day. Okay for discharge from my perspective. cc: Russell Quinonez MD
[2019-09-10] MEDS ORDERED: VANCOMYCIN 1 GM/NS 1 GM/250 ML IVPB IV ONE (17:00)
[2019-09-11] MEDS ORDERED: NORVASC PO SCH (09:00)
--- NOTE | 2019-09-15 14:51 | DISCHARGE SUMMARY ---
ADMISSION DATE: 09/05/2019 DISCHARGE DATE: 09/10/2019 FINAL DISCHARGE DIAGNOSES: 1. Acute hypoxemic respiratory failure status post extubation. 2. Hypertensive crisis. 3. Seizures secondary to hypertensive crisis. 4. Uncontrolled hypertension. 5. Bronchitis secondary to Klebsiella. 6. Poorly controlled insulin-dependent diabetes mellitus. 7. Chronic kidney disease stage 5D on hemodialysis. 8. Morbid obesity. 9. History of right atrial thrombus on chronic anticoagulation. 10. Diabetic neuropathy. CONSULTATIONS: 1. Pulmonary consultation with Dr. Moss. 2. Nephrology consultation with Dr. Quinonez. 3. Neurology consultation with Dr. Shah. IMAGIN. A head CT performed on 09/05/2019, which revealed minimal left parietal white matter microangiopathy and a tiny round focus of low attenuation in the thalamus that could be chronic. 2. Chest x-ray performed on 09/05/2019, which revealed no acute pathology. 3. Hip and pelvis x-ray performed on 09/05/2019, which revealed degenerative changes. 4. Chest x-ray performed on 09/06/2019, which revealed no acute disease. HOSPITAL COURSE: Ms. Villa is a 59-year-old female with a history of chronic kidney disease stage 5D on hemodialysis, right atrial thrombus on chronic anticoagulation, insulin-dependent diabetes mellitus, and hypertension, who presented to the ER in respiratory failure. The patient was noted to be having seizures, and her blood pressure was markedly elevated. The patient was admitted to the ICU. Pulmonary Medicine as well as Neurology and Nephrology were consulted for assistance with management. Blood cultures were obtained, and the patient was placed on broad- spectrum antibiotics. The patient was started back on dialysis. She did require a Cardene drip for several days until her blood pressure stabilized. The patient's respiratory status eventually improved enough for the patient to be extubated. The patient was still a little lethargic status post extubation, but slowly her mental status improved. She was noted to no longer be having seizures and was treated with IV Keppra. The patient continued to improve and was transferred to the medical floor, and Physical Therapy was consulted. Adjustments were made to the patient's antihypertensive regimen. Ultimately, the sputum culture grew out Klebsiella that was sensitive to the antibiotic that the patient was receiving. The patient did well with physical therapy. The patient continued to improve clinically, and her IV Keppra was transitioned to oral Keppra. The patient was ultimately cleared for discharge on 09/10/2019. DISCHARGE MEDICATIONS: 1. Keppra 500 mg oral twice a day. 2. Norvasc 10 mg oral daily. 3. Clonidine 0.2 mg oral twice a day. 4. Labetalol 200 mg oral twice a day. 5. Eliquis 5 mg oral twice a day. 6. Pravastatin 40 mg oral at bedtime. 7. Sevelamer 800 mg oral every 8 hours. 8. Furosemide 20 mg oral daily p.r.n. 9. ProAir 1 puff inhaled daily. 10. Burton 7.5/325 one tab oral every 6 hours p.r.n. for pain. 11. Protonix 40 mg oral twice a day. 12. Lantus 50 units subcutaneous at bedtime. 13. Tradjenta 5 mg oral daily. 14. Singulair 10 mg oral daily. DISCHARGE DIET: 1800 ADA diet, low-sodium diet. ACTIVITY: As tolerated. FOLLOWUP INSTRUCTIONS: The patient will need to follow up with her outpatient superintendent recreation. The patient will need to continue with her routine dialysis sessions 3 times a week as scheduled. cc: Nano Schafer MD MTDD
== END 2019-09-10 15:49 | disposition home or self-care (01) | DRG 304 ==
LOC: ED 09:23 → ICU 14:52 → SUATTDRO 14:52 → 1N 09-08 13:01
PROVIDERS: ATTEND Internal Medicine